=== PATIENT | male | born 1960 | race Caucasian/White ===

== ENCOUNTER → 2018-10-05 09:58 | Outpatient (CLI) | payer OTHER, SELFPAY ==
[2018-10-05 11:10] LABS: EXAGEN MAILED SPECIMEN
[2018-10-05 12:16] LABS: Color, Urine Yellow (Yellow); Glucose, Dipstick Normal (Normal); Ketone-Dipstick Negative (Negative); Leukocyte Esterase-Dipstick Negative /ul (Negative); Nitrite-Dipstick Negative (Negative); Occult Blood-Urine Negative /ul (Negative); Protein-Dipstick Negative (Negative); Urine Bilirubin Dipstick Negative (Negative); Urine Clarity Sl. Cloudy (Clear); Urine Urobilinogen Normal (Normal)
[2018-10-05 12:26] LABS: Erythrocyte Sedimentation Rate 70 mm/hr (0-20)
[2018-10-05 12:28] LABS: Absolute Lymphocyte Count 2.14 X10^3/ul (0.83-4.51); Absolute Neutrophil Count 5.4 X10^3/uL (2.0-7.7); Basophil# 0.03 X10^3/uL; Basophil% 0.3 % (0-1); Eosinophil# 0.26 X10^3/uL; Eosinophils% 2.9 % (0-5); Hematocrit 36.7 % (40-54); Hemoglobin 11.7 g/dl (13.0-16.5); Lymphocyte # 2.14 X10^3/ul (4.0); Lymphocyte % 23.8 % (19-41); Mean Corp Hgb Conc 31.9 g/gl (32-36); Mean Corpuscular Hgb 26.6 pg (27.0-32.0); Mean Corpuscular Volume 83.4 fL (80-94); Mean Platelet Vol. 10.7 fl (6.2-12.0); Monocyte% 13.3 % (0-10); Neutrophil # 5.35 X10^3/uL (2.7-7.7); Neutrophil % 59.5 % (47-70); Platelet Count 281 K/mm3 (150-450); RBC Distribution Width SD 46.1 fl (35.1-43.9)
[2018-10-05 12:29] LABS: POSITIVE COUNT NO; POSITIVE DIFFERENTIAL NO; POSITIVE MORPHOLOGY NO
[2018-10-05 12:35] LABS: Protein, Urine (Random) 19.7 mg/dL (<11.9); Protein:Creat Ratio 161 mg/g CRE (0-200)
[2018-10-05 12:36] LABS: ALB/GLOB Ratio 0.6 RATIO (0.9-2.4); AST(SGOT) 12 U/L (15-37); Alanine Aminotransfer ALT/SGPT 24 U/L (16-61); Albumin, Serum 2.9 g/dL (3.2-5.0); Alkaline Phosphatase 81 U/L (45-117); Anion Gap 9 (5-15); BUN 17 mg/dL (7-18); BUN/Creat Ratio 20.8 RATIO (10-20); Calcium,Total 9.1 mg/dL (8.5-10.1); Chloride 106 mmol/L (98-107); Creatinine, Serum 0.82 mg/dL (0.70-1.30); EST Glomerular Filtration Rate 104 mL/min (>60); Est Glom Filt Rate - Afr Amer 126 mL/min (>60); Globulin 4.9 g/dL (2.2-4.2); Glucose 74 mg/dL (74-106); Potassium 3.9 mmol/L (3.5-5.1); Protein, Total 7.8 g/dL (6.4-8.2); Sodium Level 143 mmol/L (136-145)
[2018-10-08 05:06] LABS: HEPATITIS B SURFACE AG Negative (Negative); QNTFERON TB Mitogen Value > 10.00 IU/mL (.); QNTFERON TB Nil Value 0.04 IU/mL (.); QNTFERON TB1+ Ag Value 0.04 IU/mL (.); QNTFERON TB2+ Ag Value 0.04 IU/mL (.)
[2018-10-08 09:54] LABS: Hep B Surface Antibodies Non Reactive (.); Hep C Antibodies <0.1 s/co ratio (0.0-0.9); Hepatitis B Core AB IgM Negative (Negative); QNTIFERON TB Positive Criteria Negative (Negative)
== END ==
PROVIDERS: Family Provider Family Medicine; PCP Family Medicine; Referring Provider Internal Medicine Rheumatology; Visit Provider Internal Medicine Rheumatology
DX: L40.59 Other psoriatic arthropathy (principal); E11.9 Type 2 diabetes mellitus without complications; M21.40 Flat foot [pes planus] (acquired), unspecified foot; E78.5 Hyperlipidemia, unspecified; H40.9 Unspecified glaucoma; R76.8 Other specified abnormal immunological findings in serum; Z79.899 Other long term (current) drug therapy
CPT/HCPCS: 36415; 80053; 81002; 82570; 84156; 85025; 85652; 86140; 86480; 86705; 86706; 86803; 87340

== ENCOUNTER → 2019-01-06 11:34 | Outpatient (CLI) | payer OTHER, SELFPAY ==
[2019-01-06 14:54] LABS: Absolute Lymphocyte Count 1.75 X10^3/uL (0.83-4.51); Absolute Neutrophil Count 4.4 X10^3/uL (2.0-7.7); Basophil# 0.06 X10^3/uL; Basophil% 0.8 % (0-1); Eosinophil# 0.19 X10^3/uL; Eosinophils% 2.7 % (0-5); Hematocrit 42.7 % (40-54); Hemoglobin 13.2 g/dL (13.0-16.5); Lymphocyte # 1.75 X10^3/ul (4.0); Lymphocyte % 24.5 % (19-41); Mean Corp Hgb Conc 30.9 g/dL (32-36); Mean Corpuscular Hgb 26.7 pg (27.0-32.0); Mean Corpuscular Volume 86.4 fL (80-94); Mean Platelet Vol. 11.7 fl (6.2-12.0); Monocyte# 0.73 X10^3/uL; Monocyte% 10.2 % (0-10); NRBC Flagged by Analyzer 0 % (0-5); Neutrophil # 4.39 X10^3/uL (2.7-7.7); Neutrophil % 61.4 % (47-70); Platelet Count 206 K/mm3 (150-450); RBC Distribution Width CV 17.7 % (11.6-14.6); RBC Distribution Width SD 54.5 fl (35.1-43.9); Red Blood Count 4.94 M/mm3 (4.6-6.2); White Blood Count 7.2 K/mm3 (4.4-11.0)
[2019-01-06 15:17] LABS: ALB/GLOB Ratio 0.8 RATIO (0.9-2.4); AST(SGOT) 12 U/L (15-37); Alanine Aminotransfer ALT/SGPT 20 U/L (16-61); Albumin, Serum 3.2 g/dL (3.2-5.0); Alkaline Phosphatase 90 U/L (45-117); Anion Gap 4 (5-15); BUN 15 mg/dL (7-18); BUN/Creat Ratio 16.4 RATIO (10-20); Calcium,Total 9.1 mg/dL (8.5-10.1); Chloride 107 mmol/L (98-107); Creatinine, Serum 0.91 mg/dL (0.70-1.30); EST Glomerular Filtration Rate 91 mL/min (>60); Est Glom Filt Rate - Afr Amer 111 mL/min (>60); Globulin 4.1 g/dL (2.2-4.2); Glucose 114 mg/dL (74-106); Potassium 4.1 mmol/L (3.5-5.1); Protein, Total 7.3 g/dL (6.4-8.2); Sodium Level 140 mmol/L (136-145)
== END ==
PROVIDERS: Family Provider Family Medicine; PCP Family Medicine; Referring Provider Internal Medicine Rheumatology; Visit Provider Internal Medicine Rheumatology
DX: L40.59 Other psoriatic arthropathy (principal); E11.9 Type 2 diabetes mellitus without complications; M21.40 Flat foot [pes planus] (acquired), unspecified foot; E78.5 Hyperlipidemia, unspecified; H40.9 Unspecified glaucoma; Z79.899 Other long term (current) drug therapy
CPT/HCPCS: 36415; 80053; 85025

== ENCOUNTER → 2019-03-08 11:10 | Outpatient (CLI) | payer OTHER, SELFPAY ==
[2019-03-08 12:33] LABS: Absolute Lymphocyte Count 1.43 X10^3/uL (0.83-4.51); Absolute Neutrophil Count 2.9 X10^3/uL (2.0-7.7); Basophil# 0.04 X10^3/uL; Basophil% 0.8 % (0-1); Eosinophil# 0.21 X10^3/uL; Hematocrit 45.7 % (40-54); Hemoglobin 14.3 g/dL (13.0-16.5); Lymphocyte # 1.43 X10^3/ul (4.0); Lymphocyte % 27.4 % (19-41); Mean Corp Hgb Conc 31.3 g/dL (32-36); Mean Corpuscular Hgb 29.3 pg (27.0-32.0); Mean Corpuscular Volume 93.6 fL (80-94); Mean Platelet Vol. 11.1 fl (6.2-12.0); Monocyte# 0.66 X10^3/uL; Monocyte% 12.6 % (0-10); NRBC Flagged by Analyzer 0 % (0-5); Neutrophil # 2.87 X10^3/uL (2.7-7.7); Platelet Count 165 K/mm3 (150-450); RBC Distribution Width CV 16.9 % (11.6-14.6); RBC Distribution Width SD 57.5 fl (35.1-43.9); Red Blood Count 4.88 M/mm3 (4.6-6.2); White Blood Count 5.2 K/mm3 (4.4-11.0)
[2019-03-08 13:05] LABS: AST(SGOT) 13 U/L (15-37); Alanine Aminotransfer ALT/SGPT 24 U/L (16-61); Albumin, Serum 3.5 g/dL (3.2-5.0); Alkaline Phosphatase 79 U/L (45-117); Anion Gap 5 (5-15); BUN 16 mg/dL (7-18); BUN/Creat Ratio 17.4 RATIO (10-20); Calcium,Total 8.6 mg/dL (8.5-10.1); Chloride 109 mmol/L (98-107); Creatinine, Serum 0.92 mg/dL (0.70-1.30); EST Glomerular Filtration Rate 90 mL/min (>60); Est Glom Filt Rate - Afr Amer 109 mL/min (>60); Globulin 3.5 g/dL (2.2-4.2); Glucose 98 mg/dL (74-106); Potassium 4.3 mmol/L (3.5-5.1); Sodium Level 141 mmol/L (136-145)
== END ==
PROVIDERS: Family Provider Family Medicine; PCP Family Medicine; Referring Provider Internal Medicine Rheumatology; Visit Provider Internal Medicine Rheumatology
DX: L40.59 Other psoriatic arthropathy (principal); E11.9 Type 2 diabetes mellitus without complications; M21.40 Flat foot [pes planus] (acquired), unspecified foot; E78.5 Hyperlipidemia, unspecified; H40.9 Unspecified glaucoma; Z79.899 Other long term (current) drug therapy
CPT/HCPCS: 36415; 80053; 85025

== ENCOUNTER → 2019-06-14 10:02 | Outpatient (CLI) | payer OTHER, SELFPAY ==
[2019-06-14 12:28] LABS: Absolute Lymphocyte Count 1.97 X10^3/uL (0.83-4.51); Basophil# 0.03 X10^3/uL; Basophil% 0.5 % (0-1); Eosinophil# 0.18 X10^3/uL; Eosinophils% 3.1 % (0-5); Hematocrit 45.2 % (40-54); Hemoglobin 14.4 g/dL (13.0-16.5); Lymphocyte # 1.97 X10^3/ul (4.0); Lymphocyte % 33.4 % (19-41); Mean Corp Hgb Conc 31.9 g/dL (32-36); Mean Corpuscular Hgb 30.1 pg (27.0-32.0); Mean Corpuscular Volume 94.6 fL (80-94); Mean Platelet Vol. 11.4 fl (6.2-12.0); Monocyte# 0.65 X10^3/uL; NRBC Flagged by Analyzer 0 % (0-5); Neutrophil # 3.03 X10^3/uL (2.7-7.7); Neutrophil % 51.5 % (47-70); Platelet Count 205 K/mm3 (150-450); RBC Distribution Width CV 13.2 % (11.6-14.6); RBC Distribution Width SD 45.8 fl (35.1-43.9); Red Blood Count 4.78 M/mm3 (4.6-6.2); White Blood Count 5.9 K/mm3 (4.4-11.0)
[2019-06-14 13:23] LABS: ALB/GLOB Ratio 1.1 RATIO (0.9-2.4); AST(SGOT) 23 U/L (15-37); Alanine Aminotransfer ALT/SGPT 41 U/L (16-61); Albumin, Serum 3.8 g/dL (3.2-5.0); Alkaline Phosphatase 82 U/L (45-117); Anion Gap 5 (5-15); BUN 18 mg/dL (7-18); BUN/Creat Ratio 17.1 RATIO (10-20); Calcium,Total 9.1 mg/dL (8.5-10.1); Chloride 110 mmol/L (98-107); Creatinine, Serum 1.05 mg/dL (0.70-1.30); EST Glomerular Filtration Rate 78 mL/min (>60); Est Glom Filt Rate - Afr Amer 94 mL/min (>60); Globulin 3.6 g/dL (2.2-4.2); Glucose 102 mg/dL (74-106); Potassium 4.2 mmol/L (3.5-5.1); Protein, Total 7.4 g/dL (6.4-8.2); Sodium Level 141 mmol/L (136-145)
== END ==
PROVIDERS: PCP Family Medicine; Referring Provider Internal Medicine Rheumatology; Visit Provider Internal Medicine Rheumatology
DX: L40.59 Other psoriatic arthropathy (principal); E11.9 Type 2 diabetes mellitus without complications; M21.40 Flat foot [pes planus] (acquired), unspecified foot; E78.5 Hyperlipidemia, unspecified; H40.9 Unspecified glaucoma; Z79.899 Other long term (current) drug therapy
CPT/HCPCS: 36415; 80053; 85025

== ENCOUNTER → 2019-09-06 11:00 | Outpatient (CLI) | payer OTHER, SELFPAY ==
[2019-09-06 11:22] LABS: Absolute Neutrophil Count 3.5 X10^3/uL (2.0-7.7); Basophil# 0.04 X10^3/uL; Basophil% 0.6 % (0-1); Eosinophil# 0.19 X10^3/uL; Eosinophils% 3.1 % (0-5); Hematocrit 46.5 % (40-54); Hemoglobin 15.1 g/dL (13.0-16.5); Mean Corp Hgb Conc 32.5 g/dL (32-36); Mean Corpuscular Hgb 31.3 pg (27.0-32.0); Mean Corpuscular Volume 96.3 fL (80-94); Mean Platelet Vol. 10.7 fl (6.2-12.0); Monocyte% 9.7 % (0-10); NRBC Flagged by Analyzer 0 % (0-5); Neutrophil # 3.52 X10^3/uL (2.7-7.7); Neutrophil % 56.8 % (47-70); Platelet Count 161 K/mm3 (150-450); RBC Distribution Width CV 13.4 % (11.6-14.6); RBC Distribution Width SD 47.7 fl (35.1-43.9); Red Blood Count 4.83 M/mm3 (4.6-6.2); White Blood Count 6.2 K/mm3 (4.4-11.0)
[2019-09-06 11:49] LABS: AST(SGOT) 28 U/L (15-37); Alanine Aminotransfer ALT/SGPT 56 U/L (16-61); Albumin, Serum 3.6 g/dL (3.2-5.0); Alkaline Phosphatase 87 U/L (45-117); Anion Gap 4 (5-15); BUN 19 mg/dL (7-18); BUN/Creat Ratio 19.7 RATIO (10-20); Calcium,Total 9.1 mg/dL (8.5-10.1); Chloride 110 mmol/L (98-107); Creatinine, Serum 0.96 mg/dL (0.70-1.30); EST Glomerular Filtration Rate 86 mL/min (>60); Est Glom Filt Rate - Afr Amer 104 mL/min (>60); Globulin 3.5 g/dL (2.2-4.2); Glucose 125 mg/dL (74-106); Potassium 4.3 mmol/L (3.5-5.1); Protein, Total 7.1 g/dL (6.4-8.2); Sodium Level 143 mmol/L (136-145)
== END ==
PROVIDERS: PCP Family Medicine; Referring Provider Internal Medicine Rheumatology; Visit Provider Internal Medicine Rheumatology
DX: L40.59 Other psoriatic arthropathy (principal); E11.9 Type 2 diabetes mellitus without complications; M21.40 Flat foot [pes planus] (acquired), unspecified foot; E78.5 Hyperlipidemia, unspecified; H40.9 Unspecified glaucoma; Z79.899 Other long term (current) drug therapy
CPT/HCPCS: 36415; 80053; 85025

== ENCOUNTER → 2019-12-08 10:31 | Outpatient (CLI) | payer OTHER, SELFPAY ==
[2019-12-08 10:45] LABS: Absolute Lymphocyte Count 1.68 X10^3/uL (0.83-4.51); Absolute Neutrophil Count 2.7 X10^3/uL (2.0-7.7); Basophil# 0.03 X10^3/uL; Basophil% 0.6 % (0-1); Eosinophil# 0.15 X10^3/uL; Eosinophils% 2.9 % (0-5); Hematocrit 43.3 % (40-54); Hemoglobin 14.1 g/dL (13.0-16.5); Lymphocyte # 1.68 X10^3/ul (4.0); Lymphocyte % 32.6 % (19-41); Mean Corp Hgb Conc 32.6 g/dL (32-36); Mean Corpuscular Hgb 31.3 pg (27.0-32.0); Monocyte# 0.63 X10^3/uL; Monocyte% 12.2 % (0-10); NRBC Flagged by Analyzer 0 % (0-5); Neutrophil # 2.65 X10^3/uL (2.7-7.7); Neutrophil % 51.5 % (47-70); Platelet Count 169 K/mm3 (150-450); RBC Distribution Width CV 13.3 % (11.6-14.6); RBC Distribution Width SD 47.3 fl (35.1-43.9); Red Blood Count 4.51 M/mm3 (4.6-6.2); White Blood Count 5.2 K/mm3 (4.4-11.0)
[2019-12-08 11:29] LABS: ALB/GLOB Ratio 1.1 RATIO (0.9-2.4); AST(SGOT) 12 U/L (15-37); Alanine Aminotransfer ALT/SGPT 30 U/L (16-61); Albumin, Serum 3.6 g/dL (3.2-5.0); Alkaline Phosphatase 89 U/L (45-117); Anion Gap 3 (5-15); BUN 15 mg/dL (7-18); BUN/Creat Ratio 15.7 RATIO (10-20); Calcium,Total 8.9 mg/dL (8.5-10.1); Chloride 108 mmol/L (98-107); Creatinine, Serum 0.96 mg/dL (0.70-1.30); EST Glomerular Filtration Rate 86 mL/min (>60); Est Glom Filt Rate - Afr Amer 105 mL/min (>60); Globulin 3.3 g/dL (2.2-4.2); Glucose 79 mg/dL (74-106); Potassium 3.9 mmol/L (3.5-5.1); Protein, Total 6.9 g/dL (6.4-8.2); Sodium Level 142 mmol/L (136-145)
== END ==
PROVIDERS: PCP Family Medicine; Referring Provider Internal Medicine Rheumatology; Visit Provider Internal Medicine Rheumatology
DX: L40.59 Other psoriatic arthropathy (principal); E11.9 Type 2 diabetes mellitus without complications; M21.40 Flat foot [pes planus] (acquired), unspecified foot; E78.5 Hyperlipidemia, unspecified; H40.9 Unspecified glaucoma; Z79.899 Other long term (current) drug therapy
CPT/HCPCS: 36415; 80053; 85025

== ENCOUNTER → 2020-02-25 09:50 | Outpatient (CLI) | payer OTHER, SELFPAY ==
[2020-02-25 10:30] LABS: Absolute Lymphocyte Count 1.75 X10^3/uL (0.83-4.51); Absolute Neutrophil Count 2.3 X10^3/uL (2.0-7.7); Basophil# 0.03 X10^3/uL; Basophil% 0.6 % (0-1); Eosinophil# 0.11 X10^3/uL; Eosinophils% 2.3 % (0-5); Hemoglobin 13.8 g/dL (13.0-16.5); Lymphocyte # 1.75 X10^3/ul (4.0); Lymphocyte % 36.2 % (19-41); Mean Corp Hgb Conc 31.4 g/dL (32-36); Mean Corpuscular Hgb 30.6 pg (27.0-32.0); Mean Corpuscular Volume 97.6 fL (80-94); Mean Platelet Vol. 10.8 fl (6.2-12.0); Monocyte% 12.4 % (0-10); NRBC Flagged by Analyzer 0 % (0-5); Neutrophil # 2.33 X10^3/uL (2.7-7.7); Neutrophil % 48.3 % (47-70); Platelet Count 163 K/mm3 (150-450); RBC Distribution Width CV 13.2 % (11.6-14.6); RBC Distribution Width SD 47.3 fl (35.1-43.9); Red Blood Count 4.51 M/mm3 (4.6-6.2); White Blood Count 4.8 K/mm3 (4.4-11.0)
[2020-02-25 10:53] LABS: ALB/GLOB Ratio 1.1 RATIO (0.9-2.4); AST(SGOT) 21 U/L (15-37); Alanine Aminotransfer ALT/SGPT 34 U/L (16-61); Albumin, Serum 3.7 g/dL (3.2-5.0); Alkaline Phosphatase 86 U/L (45-117); Anion Gap 4 (5-15); BUN 19 mg/dL (7-18); BUN/Creat Ratio 20.9 RATIO (10-20); Calcium,Total 8.8 mg/dL (8.5-10.1); Chloride 107 mmol/L (98-107); Creatinine, Serum 0.91 mg/dL (0.70-1.30); EST Glomerular Filtration Rate 91 mL/min (>60); Est Glom Filt Rate - Afr Amer 111 mL/min (>60); Globulin 3.5 g/dL (2.2-4.2); Glucose 83 mg/dL (74-106); Protein, Total 7.2 g/dL (6.4-8.2); Sodium Level 140 mmol/L (136-145)
== END ==
PROVIDERS: PCP Family Medicine; Referring Provider Internal Medicine Rheumatology; Visit Provider Internal Medicine Rheumatology
DX: L40.59 Other psoriatic arthropathy (principal); E11.9 Type 2 diabetes mellitus without complications; M21.40 Flat foot [pes planus] (acquired), unspecified foot; E78.5 Hyperlipidemia, unspecified; H40.9 Unspecified glaucoma; Z79.899 Other long term (current) drug therapy
CPT/HCPCS: 36415; 80053; 85025

== ENCOUNTER → 2020-05-23 10:06 | Outpatient (CLI) | payer OTHER, SELFPAY ==
[2020-05-23 12:11] LABS: Absolute Lymphocyte Count 1.67 X10^3/uL (0.83-4.51); Absolute Neutrophil Count 2.1 X10^3/uL (2.0-7.7); Basophil# 0.02 X10^3/uL; Basophil% 0.5 % (0-1); Eosinophils% 2.3 % (0-5); Hemoglobin 14.3 g/dL (13.0-16.5); Lymphocyte # 1.67 X10^3/ul (4.0); Mean Corp Hgb Conc 32.5 g/dL (32-36); Mean Corpuscular Hgb 30.9 pg (27.0-32.0); Mean Platelet Vol. 11.4 fl (6.2-12.0); Monocyte# 0.47 X10^3/uL; Monocyte% 10.7 % (0-10); NRBC Flagged by Analyzer 0 % (0-5); Neutrophil # 2.12 X10^3/uL (2.7-7.7); Neutrophil % 48.3 % (47-70); Platelet Count 185 K/mm3 (150-450); RBC Distribution Width CV 13.4 % (11.6-14.6); RBC Distribution Width SD 46.6 fl (35.1-43.9); Red Blood Count 4.63 M/mm3 (4.6-6.2); White Blood Count 4.4 K/mm3 (4.4-11.0)
[2020-05-23 12:33] LABS: ALB/GLOB Ratio 1.1 RATIO (0.9-2.4); AST(SGOT) 12 U/L (15-37); Alanine Aminotransfer ALT/SGPT 24 U/L (16-61); Albumin, Serum 3.8 g/dL (3.2-5.0); Alkaline Phosphatase 86 U/L (45-117); Anion Gap 4 (5-15); BUN 17 mg/dL (7-18); BUN/Creat Ratio 19.7 RATIO (10-20); Calcium,Total 8.7 mg/dL (8.5-10.1); Chloride 108 mmol/L (98-107); Creatinine, Serum 0.86 mg/dL (0.70-1.30); EST Glomerular Filtration Rate 97 mL/min (>60); Est Glom Filt Rate - Afr Amer 117 mL/min (>60); Globulin 3.5 g/dL (2.2-4.2); Glucose 86 mg/dL (74-106); Potassium 3.9 mmol/L (3.5-5.1); Protein, Total 7.3 g/dL (6.4-8.2); Sodium Level 139 mmol/L (136-145)
== END ==
PROVIDERS: PCP Family Medicine; Referring Provider Internal Medicine Rheumatology; Visit Provider Internal Medicine Rheumatology
DX: L40.59 Other psoriatic arthropathy (principal); E11.9 Type 2 diabetes mellitus without complications; M21.40 Flat foot [pes planus] (acquired), unspecified foot; E78.5 Hyperlipidemia, unspecified; H40.9 Unspecified glaucoma; Z79.899 Other long term (current) drug therapy
CPT/HCPCS: 36415; 80053; 85025

== ENCOUNTER → 2020-08-04 11:50 | Outpatient (CLI) | payer OTHER, SELFPAY ==
[2020-08-04 12:04] LABS: Absolute Lymphocyte Count 1.42 X10^3/uL (0.83-4.51); Absolute Neutrophil Count 2.6 X10^3/uL (2.0-7.7); Basophil# 0.04 X10^3/uL; Basophil% 0.8 % (0-1); Eosinophil# 0.16 X10^3/uL; Eosinophils% 3.3 % (0-5); Hematocrit 44.5 % (40-54); Hemoglobin 14.8 g/dL (13.0-16.5); Lymphocyte # 1.42 X10^3/ul (4.0); Mean Corp Hgb Conc 33.3 g/dL (32-36); Mean Corpuscular Volume 96.1 fL (80-94); Mean Platelet Vol. 10.9 fl (6.2-12.0); Monocyte# 0.61 X10^3/uL; Monocyte% 12.5 % (0-10); NRBC Flagged by Analyzer 0 % (0-5); Neutrophil # 2.64 X10^3/uL (2.7-7.7); Platelet Count 160 K/mm3 (150-450); RBC Distribution Width CV 14.4 % (11.6-14.6); RBC Distribution Width SD 49.3 fl (35.1-43.9); Red Blood Count 4.63 M/mm3 (4.6-6.2); White Blood Count 4.9 K/mm3 (4.4-11.0)
[2020-08-04 13:00] LABS: ALB/GLOB Ratio 1.1 RATIO (0.9-2.4); AST(SGOT) 18 U/L (15-37); Alanine Aminotransfer ALT/SGPT 38 U/L (16-61); Albumin, Serum 3.8 g/dL (3.2-5.0); Alkaline Phosphatase 91 U/L (45-117); Anion Gap 3 (5-15); BUN 18 mg/dL (7-18); BUN/Creat Ratio 19.1 RATIO (10-20); Calcium,Total 9.2 mg/dL (8.5-10.1); Chloride 109 mmol/L (98-107); Creatinine, Serum 0.94 mg/dL (0.70-1.30); EST Glomerular Filtration Rate 88 mL/min (>60); Est Glom Filt Rate - Afr Amer 106 mL/min (>60); Globulin 3.6 g/dL (2.2-4.2); Glucose 100 mg/dL (74-106); Potassium 4.2 mmol/L (3.5-5.1); Protein, Total 7.4 g/dL (6.4-8.2); Sodium Level 140 mmol/L (136-145)
== END ==
PROVIDERS: PCP Family Medicine; Referring Provider Internal Medicine Rheumatology; Visit Provider Internal Medicine Rheumatology
DX: L40.59 Other psoriatic arthropathy (principal); E11.9 Type 2 diabetes mellitus without complications; M21.40 Flat foot [pes planus] (acquired), unspecified foot; E78.5 Hyperlipidemia, unspecified; H40.9 Unspecified glaucoma; Z79.899 Other long term (current) drug therapy
CPT/HCPCS: 36415; 80053; 85025

== ENCOUNTER → 2020-11-07 09:47 | Outpatient (CLI) | payer OTHER, SELFPAY ==
[2020-11-07 10:06] LABS: Absolute Lymphocyte Count 1.55 X10^3/uL (0.83-4.51); Absolute Neutrophil Count 2.3 X10^3/uL (2.0-7.7); Basophil# 0.03 X10^3/uL; Basophil% 0.7 % (0-1); Eosinophil# 0.13 X10^3/uL; Eosinophils% 2.9 % (0-5); Hematocrit 43.9 % (40-54); Hemoglobin 14.1 g/dL (13.0-16.5); Lymphocyte # 1.55 X10^3/ul (0.83-4.51); Lymphocyte % 34.8 % (19-41); Mean Corp Hgb Conc 32.1 g/dL (32-36); Mean Corpuscular Hgb 30.7 pg (27.0-32.0); Mean Corpuscular Volume 95.4 fL (80-94); Monocyte# 0.43 X10^3/uL; Monocyte% 9.6 % (0-10); NRBC Flagged by Analyzer 0 % (0-5); Neutrophil % 51.6 % (47-70); Platelet Count 173 K/mm3 (150-450); RBC Distribution Width CV 13.6 % (11.6-14.6); RBC Distribution Width SD 47.3 fl (35.1-43.9); White Blood Count 4.5 K/mm3 (4.4-11.0)
[2020-11-07 10:33] LABS: ALB/GLOB Ratio 1.2 RATIO (0.9-2.4); AST(SGOT) 15 U/L (15-37); Alanine Aminotransfer ALT/SGPT 24 U/L (16-61); Albumin, Serum 3.8 g/dL (3.2-5.0); Alkaline Phosphatase 84 U/L (45-117); Anion Gap 4 (5-15); BUN 15 mg/dL (7-18); BUN/Creat Ratio 15.3 RATIO (10-20); Calcium,Total 8.8 mg/dL (8.5-10.1); Chloride 108 mmol/L (98-107); Creatinine, Serum 0.98 mg/dL (0.70-1.30); EST Glomerular Filtration Rate 83 mL/min (>60); Est Glom Filt Rate - Afr Amer 101 mL/min (>60); Globulin 3.3 g/dL (2.2-4.2); Glucose 91 mg/dL (74-106); Protein, Total 7.1 g/dL (6.4-8.2); Sodium Level 140 mmol/L (136-145)
== END ==
PROVIDERS: PCP Family Medicine; Referring Provider Internal Medicine Rheumatology; Visit Provider Internal Medicine Rheumatology
DX: L40.59 Other psoriatic arthropathy (principal); E11.9 Type 2 diabetes mellitus without complications; M21.40 Flat foot [pes planus] (acquired), unspecified foot; E78.5 Hyperlipidemia, unspecified; H40.9 Unspecified glaucoma; Z79.899 Other long term (current) drug therapy
CPT/HCPCS: 36415; 80053; 85025

== ENCOUNTER → 2021-02-06 09:20 | Outpatient (CLI) | payer OTHER, SELFPAY ==
[2021-02-06 10:40] LABS: Absolute Lymphocyte Count 1.58 X10^3/uL (0.83-4.51); Absolute Neutrophil Count 2.3 X10^3/uL (2.0-7.7); Basophil# 0.03 X10^3/uL; Basophil% 0.7 % (0-1); Eosinophil# 0.12 X10^3/uL; Eosinophils% 2.7 % (0-5); Hematocrit 41.4 % (40-54); Hemoglobin 13.5 g/dL (13.0-16.5); Lymphocyte # 1.58 X10^3/ul (0.83-4.51); Mean Corp Hgb Conc 32.6 g/dL (32-36); Mean Corpuscular Hgb 30.7 pg (27.0-32.0); Mean Corpuscular Volume 94.1 fL (80-94); Mean Platelet Vol. 11.6 fl (6.2-12.0); Monocyte# 0.45 X10^3/uL; NRBC Flagged by Analyzer 0 % (0-5); Neutrophil # 2.32 X10^3/uL (2.7-7.7); Neutrophil % 51.2 % (47-70); Platelet Count 168 K/mm3 (150-450); RBC Distribution Width CV 13.3 % (11.6-14.6); RBC Distribution Width SD 45.3 fl (35.1-43.9); White Blood Count 4.5 K/mm3 (4.4-11.0)
[2021-02-06 11:17] LABS: AST(SGOT) 14 U/L (15-37); Alanine Aminotransfer ALT/SGPT 26 U/L (16-61); Albumin, Serum 3.4 g/dL (3.2-5.0); Alkaline Phosphatase 76 U/L (45-117); Anion Gap 5 (5-15); BUN 17 mg/dL (7-18); BUN/Creat Ratio 18.3 RATIO (10-20); Calcium,Total 8.8 mg/dL (8.5-10.1); Chloride 108 mmol/L (98-107); Creatinine, Serum 0.93 mg/dL (0.70-1.30); EST Glomerular Filtration Rate 89 mL/min (>60); Est Glom Filt Rate - Afr Amer 108 mL/min (>60); Globulin 3.4 g/dL (2.2-4.2); Glucose 91 mg/dL (74-106); Potassium 3.9 mmol/L (3.5-5.1); Protein, Total 6.8 g/dL (6.4-8.2); Sodium Level 141 mmol/L (136-145)
== END ==
PROVIDERS: PCP Family Medicine; Referring Provider Internal Medicine Rheumatology; Visit Provider Internal Medicine Rheumatology
DX: L40.59 Other psoriatic arthropathy (principal); E11.9 Type 2 diabetes mellitus without complications; M21.40 Flat foot [pes planus] (acquired), unspecified foot; E78.5 Hyperlipidemia, unspecified; H40.9 Unspecified glaucoma; Z79.899 Other long term (current) drug therapy
CPT/HCPCS: 36415; 80053; 85025

== ENCOUNTER 2021-08-08 09:51 | Outpatient (CLI) | payer OTHER, SELFPAY ==
[2021-08-08 10:50] LABS: Absolute Neutrophil Count 2.8 X10^3/uL (2.0-7.7); Basophil# 0.03 X10^3/uL; Basophil% 0.6 % (0-1); Eosinophil# 0.17 X10^3/uL; Eosinophils% 3.2 % (0-5); Hematocrit 42.2 % (40-54); Lymphocyte % 30.1 % (19-41); Mean Corp Hgb Conc 33.2 g/dL (32-36); Mean Corpuscular Volume 93.4 fL (80-94); Mean Platelet Vol. 10.6 fl (6.2-12.0); Monocyte# 0.67 X10^3/uL; Monocyte% 12.6 % (0-10); NRBC Flagged by Analyzer 0.4 % (0-5); Neutrophil # 2.84 X10^3/uL (2.7-7.7); Neutrophil % 53.3 % (47-70); Platelet Count 172 K/mm3 (150-450); RBC Distribution Width CV 13.2 % (11.6-14.6); Red Blood Count 4.52 M/mm3 (4.6-6.2); White Blood Count 5.3 K/mm3 (4.4-11.0)
[2021-08-08 11:19] LABS: ALB/GLOB Ratio 1.2 RATIO (0.9-2.4); AST(SGOT) 17 U/L (15-37); Alanine Aminotransfer ALT/SGPT 32 U/L (16-61); Albumin, Serum 3.7 g/dL (3.2-5.0); Alkaline Phosphatase 78 U/L (45-117); Anion Gap 3 (5-15); BUN 18 mg/dL (7-18); BUN/Creat Ratio 18.5 RATIO (10-20); Calcium,Total 8.4 mg/dL (8.5-10.1); Chloride 110 mmol/L (98-107); Creatinine, Serum 0.97 mg/dL (0.70-1.30); EST Glomerular Filtration Rate 84 mL/min (>60); Est Glom Filt Rate - Afr Amer 102 mL/min (>60); Globulin 3.2 g/dL (2.2-4.2); Glucose 94 mg/dL (74-106); Potassium 3.9 mmol/L (3.5-5.1); Protein, Total 6.9 g/dL (6.4-8.2); Sodium Level 140 mmol/L (136-145)
== END 2021-08-08 23:59 | disposition home or self-care (01) ==
LOC: LAB 10:18
PROVIDERS: PCP Family Medicine; Visit Provider Internal Medicine Rheumatology
DX: L40.59 Other psoriatic arthropathy (principal); E11.9 Type 2 diabetes mellitus without complications; L40.8 Other psoriasis; M21.40 Flat foot [pes planus] (acquired), unspecified foot; E78.5 Hyperlipidemia, unspecified; H40.9 Unspecified glaucoma; Z79.899 Other long term (current) drug therapy
CPT/HCPCS: 36415; 80053; 85025

== ENCOUNTER → 2021-11-10 | Outpatient (CLI) | payer OTHER, SELFPAY ==
[2021-11-10 11:02] LABS: Absolute Lymphocyte Count 1.47 X10^3/uL (0.83-4.51); Absolute Neutrophil Count 2.8 X10^3/uL (2.0-7.7); Basophil# 0.03 X10^3/uL; Basophil% 0.6 % (0-1); Eosinophil# 0.19 X10^3/uL; Eosinophils% 3.7 % (0-5); Hematocrit 42.2 % (40-54); Hemoglobin 13.9 g/dL (13.0-16.5); Lymphocyte # 1.47 X10^3/ul (0.83-4.51); Lymphocyte % 28.8 % (19-41); Mean Corp Hgb Conc 32.9 g/dL (32-36); Mean Corpuscular Hgb 31.3 pg (27.0-32.0); Mean Platelet Vol. 10.7 fl (6.2-12.0); Monocyte# 0.65 X10^3/uL; Monocyte% 12.7 % (0-10); NRBC Flagged by Analyzer 0 % (0-5); Neutrophil # 2.75 X10^3/uL (2.7-7.7); Neutrophil % 53.8 % (47-70); Platelet Count 157 K/mm3 (150-450); RBC Distribution Width CV 13.4 % (11.6-14.6); RBC Distribution Width SD 46.7 fl (35.1-43.9); Red Blood Count 4.44 M/mm3 (4.6-6.2); White Blood Count 5.1 K/mm3 (4.4-11.0)
[2021-11-10 11:29] LABS: ALB/GLOB Ratio 1.1 RATIO (0.9-2.4); AST(SGOT) 13 U/L (15-37); Alanine Aminotransfer ALT/SGPT 21 U/L (16-61); Albumin, Serum 3.5 g/dL (3.2-5.0); Alkaline Phosphatase 84 U/L (45-117); Anion Gap 5 (5-15); BUN 20 mg/dL (7-18); BUN/Creat Ratio 19.8 RATIO (10-20); Calcium,Total 8.7 mg/dL (8.5-10.1); Chloride 110 mmol/L (98-107); Creatinine, Serum 1.01 mg/dL (0.70-1.30); EST Glomerular Filtration Rate 80 mL/min (>60); Est Glom Filt Rate - Afr Amer 97 mL/min (>60); Globulin 3.2 g/dL (2.2-4.2); Glucose 107 mg/dL (74-106); Potassium 3.8 mmol/L (3.5-5.1); Protein, Total 6.7 g/dL (6.4-8.2); Sodium Level 141 mmol/L (136-145)
== END | disposition home or self-care (01) ==
LOC: LAB 10:29
PROVIDERS: PCP Family Medicine; Referring Provider Internal Medicine Rheumatology; Visit Provider Internal Medicine Rheumatology
DX: L40.59 Other psoriatic arthropathy (principal); E11.9 Type 2 diabetes mellitus without complications; L40.8 Other psoriasis; M21.40 Flat foot [pes planus] (acquired), unspecified foot; E78.5 Hyperlipidemia, unspecified; H40.9 Unspecified glaucoma; Z79.899 Other long term (current) drug therapy
CPT/HCPCS: 36415; 80053; 85025

== ENCOUNTER → 2022-02-01 | Outpatient (CLI) | payer OTHER, SELFPAY ==
[2022-02-01 11:38] LABS: Absolute Lymphocyte Count 1.29 X10^3/uL (0.83-4.51); Absolute Neutrophil Count 2.8 X10^3/uL (2.0-7.7); Basophil# 0.02 X10^3/uL; Basophil% 0.4 % (0-1); Eosinophil# 0.15 X10^3/uL; Eosinophils% 3.1 % (0-5); Hemoglobin 14.6 g/dL (13.0-16.5); Lymphocyte # 1.29 X10^3/ul (0.83-4.51); Lymphocyte % 26.3 % (19-41); Mean Corp Hgb Conc 32.4 g/dL (32-36); Mean Corpuscular Hgb 30.9 pg (27.0-32.0); Mean Corpuscular Volume 95.3 fL (80-94); Mean Platelet Vol. 10.9 fl (6.2-12.0); Monocyte# 0.66 X10^3/uL; Monocyte% 13.4 % (0-10); NRBC Flagged by Analyzer 0 % (0-5); Neutrophil # 2.76 X10^3/uL (2.7-7.7); Neutrophil % 56.2 % (47-70); Platelet Count 168 K/mm3 (150-450); RBC Distribution Width CV 13.3 % (11.6-14.6); RBC Distribution Width SD 46.6 fl (35.1-43.9); Red Blood Count 4.72 M/mm3 (4.6-6.2); White Blood Count 4.9 K/mm3 (4.4-11.0)
[2022-02-01 12:00] LABS: AST(SGOT) 14 U/L (15-37); Alanine Aminotransfer ALT/SGPT 22 U/L (16-61); Albumin, Serum 3.7 g/dL (3.2-5.0); Alkaline Phosphatase 83 U/L (45-117); Anion Gap 3 (5-15); BUN 22 mg/dL (7-18); BUN/Creat Ratio 21.2 RATIO (10-20); Calcium,Total 9.3 mg/dL (8.5-10.1); Chloride 110 mmol/L (98-107); Creatinine, Serum 1.04 mg/dL (0.70-1.30); EST Glomerular Filtration Rate 78 mL/min (>60); Est Glom Filt Rate - Afr Amer 94 mL/min (>60); Globulin 3.6 g/dL (2.2-4.2); Glucose 98 mg/dL (74-106); Potassium 4.4 mmol/L (3.5-5.1); Protein, Total 7.3 g/dL (6.4-8.2); Sodium Level 141 mmol/L (136-145)
== END | disposition home or self-care (01) ==
LOC: LAB 11:23
PROVIDERS: PCP Family Medicine; Visit Provider Internal Medicine Rheumatology
DX: L40.59 Other psoriatic arthropathy (principal); E11.9 Type 2 diabetes mellitus without complications; L40.8 Other psoriasis; M21.40 Flat foot [pes planus] (acquired), unspecified foot; E78.5 Hyperlipidemia, unspecified; H40.9 Unspecified glaucoma; Z79.899 Other long term (current) drug therapy
CPT/HCPCS: 36415; 80053; 85025

== ENCOUNTER → 2022-05-06 | Outpatient (CLI) | payer OTHER, SELFPAY ==
[2022-05-06 10:19] LABS: Absolute Lymphocyte Count 1.96 X10^3/uL (0.83-4.51); Absolute Neutrophil Count 3.4 X10^3/uL (2.0-7.7); Basophil# 0.04 X10^3/uL; Basophil% 0.6 % (0-1); Eosinophil# 0.21 X10^3/uL; Eosinophils% 3.2 % (0-5); Hematocrit 45.5 % (40-54); Hemoglobin 15.1 g/dL (13.0-16.5); Lymphocyte # 1.96 X10^3/ul (0.83-4.51); Lymphocyte % 30.1 % (19-41); Mean Corp Hgb Conc 33.2 g/dL (32-36); Mean Corpuscular Hgb 31.6 pg (27.0-32.0); Mean Corpuscular Volume 95.2 fL (80-94); Mean Platelet Vol. 11.2 fl (6.2-12.0); Monocyte# 0.86 X10^3/uL; Monocyte% 13.2 % (0-10); NRBC Flagged by Analyzer 0 % (0-5); Neutrophil # 3.41 X10^3/uL (2.7-7.7); Neutrophil % 52.4 % (47-70); Platelet Count 149 K/mm3 (150-450); RBC Distribution Width SD 48.3 fl (35.1-43.9); Red Blood Count 4.78 M/mm3 (4.6-6.2); White Blood Count 6.5 K/mm3 (4.4-11.0)
[2022-05-06 11:00] LABS: ALB/GLOB Ratio 0.9 RATIO (0.9-2.4); AST(SGOT) 13 U/L (15-37); Alanine Aminotransfer ALT/SGPT 40 U/L (16-61); Albumin, Serum 3.5 g/dL (3.2-5.0); Alkaline Phosphatase 80 U/L (45-117); Anion Gap 5 (5-15); BUN 20 mg/dL (7-18); BUN/Creat Ratio 21.6 RATIO (10-20); Calcium,Total 8.6 mg/dL (8.5-10.1); Chloride 110 mmol/L (98-107); Creatinine, Serum 0.93 mg/dL (0.70-1.30); EST Glomerular Filtration Rate 89 mL/min (>60); Est Glom Filt Rate - Afr Amer 107 mL/min (>60); Globulin 3.7 g/dL (2.2-4.2); Glucose 101 mg/dL (74-106); Potassium 4.2 mmol/L (3.5-5.1); Protein, Total 7.2 g/dL (6.4-8.2); Sodium Level 140 mmol/L (136-145)
== END | disposition home or self-care (01) ==
PROVIDERS: PCP Family Medicine; Visit Provider Internal Medicine Rheumatology
DX: L40.59 Other psoriatic arthropathy (principal); L40.8 Other psoriasis; Z79.899 Other long term (current) drug therapy
CPT/HCPCS: 36415; 80053; 85025

== ENCOUNTER → 2022-07-24 | Outpatient (CLI) | payer OTHER, SELFPAY ==
[2022-07-24 12:40] LABS: Absolute Lymphocyte Count 1.27 X10^3/uL (0.83-4.51); Absolute Neutrophil Count 3.4 X10^3/uL (2.0-7.7); Basophil# 0.04 X10^3/uL; Basophil% 0.7 % (0-1); Eosinophil# 0.12 X10^3/uL; Eosinophils% 2.1 % (0-5); Hematocrit 43.6 % (40-54); Hemoglobin 14.5 g/dL (13.0-16.5); Lymphocyte # 1.27 X10^3/ul (0.83-4.51); Lymphocyte % 22.3 % (19-41); Mean Corp Hgb Conc 33.3 g/dL (32-36); Mean Corpuscular Hgb 32.2 pg (27.0-32.0); Mean Corpuscular Volume 96.7 fL (80-94); Mean Platelet Vol. 11.4 fl (6.2-12.0); Monocyte# 0.86 X10^3/uL; Monocyte% 15.1 % (0-10); NRBC Flagged by Analyzer 0 % (0-5); Neutrophil # 3.39 X10^3/uL (2.7-7.7); Neutrophil % 59.4 % (47-70); Platelet Count 144 K/mm3 (150-450); RBC Distribution Width CV 13.7 % (11.6-14.6); RBC Distribution Width SD 48.4 fl (35.1-43.9); Red Blood Count 4.51 M/mm3 (4.6-6.2); White Blood Count 5.7 K/mm3 (4.4-11.0)
[2022-07-24 13:06] LABS: Hemoglobin A1c 5.9 % (3.8-5.6)
[2022-07-24 13:12] LABS: Vitamin D,25 Hydroxy 50.6 ng/mL
[2022-07-24 14:06] LABS: ALB/GLOB Ratio 1.1 RATIO (0.9-2.4); AST(SGOT) 19 U/L (15-37); Alanine Aminotransfer ALT/SGPT 29 U/L (16-61); Albumin, Serum 3.5 g/dL (3.2-5.0); Alkaline Phosphatase 78 U/L (45-117); Anion Gap 5 (5-15); BUN 18 mg/dL (7-18); BUN/Creat Ratio 18.2 RATIO (10-20); Calcium,Total 8.9 mg/dL (8.5-10.1); Chloride 108 mmol/L (98-107); Cholesterol 177 mg/dL (200); Creatinine, Serum 0.99 mg/dL (0.70-1.30); EST Glomerular Filtration Rate 82 mL/min (>60); Est Glom Filt Rate - Afr Amer 99 mL/min (>60); Free T3 2.7 pg/mL (2.18-3.98); Globulin 3.3 g/dL (2.2-4.2); Glucose 85 mg/dL (74-106); High Density Lipoprotein 42 mg/dL; PSA,Total - Annual Screen 2.41 ng/mL (0.00-4.00); Potassium 4.1 mmol/L (3.5-5.1); Protein, Total 6.8 g/dL (6.4-8.2); Sodium Level 140 mmol/L (136-145); Triglycerides 119 mg/dL; Very Low Density Lipoprotein 24 mg/dL (5-40)
== END | disposition home or self-care (01) ==
PROVIDERS: PCP Internal Medicine; Referring Provider Internal Medicine Rheumatology; Visit Provider Internal Medicine Rheumatology
DX: L40.50 Arthropathic psoriasis, unspecified (principal); E11.9 Type 2 diabetes mellitus without complications; L40.8 Other psoriasis; M21.40 Flat foot [pes planus] (acquired), unspecified foot; E78.5 Hyperlipidemia, unspecified; H40.9 Unspecified glaucoma; Z79.899 Other long term (current) drug therapy; Z12.5 Encounter for screening for malignant neoplasm of prostate; E55.9 Vitamin D deficiency, unspecified
CPT/HCPCS: 36415; 77063; 77067; 80053; 80061; 82306; 83036; 84153; 84439; 84443; 84481; 85025; G0103

== ENCOUNTER 2022-10-30 08:16 | Outpatient (CLI) | payer OTHER, SELFPAY ==
[2022-10-30 09:24] LABS: Absolute Lymphocyte Count 1.73 X10^3/uL (0.83-4.51); Absolute Neutrophil Count 2.9 X10^3/uL (2.0-7.7); Basophil# 0.03 X10^3/uL; Basophil% 0.6 % (0-1); Eosinophil# 0.14 X10^3/uL; Eosinophils% 2.6 % (0-5); Hematocrit 41.6 % (40-54); Hemoglobin 13.9 g/dL (13.0-16.5); Lymphocyte # 1.73 X10^3/ul (0.83-4.51); Lymphocyte % 31.9 % (19-41); Mean Corp Hgb Conc 33.4 g/dL (32-36); Mean Corpuscular Hgb 31.8 pg (27.0-32.0); Mean Corpuscular Volume 95.2 fL (80-94); Mean Platelet Vol. 11.2 fl (6.2-12.0); Monocyte# 0.61 X10^3/uL; Monocyte% 11.3 % (0-10); NRBC Flagged by Analyzer 0 % (0-5); Neutrophil # 2.88 X10^3/uL (2.7-7.7); Platelet Count 166 K/mm3 (150-450); RBC Distribution Width CV 13.4 % (11.6-14.6); RBC Distribution Width SD 46.7 fl (35.1-43.9); Red Blood Count 4.37 M/mm3 (4.6-6.2); White Blood Count 5.4 K/mm3 (4.4-11.0)
[2022-10-30 10:15] LABS: ALB/GLOB Ratio 1.1 RATIO (0.9-2.4); AST(SGOT) 19 U/L (15-37); Alanine Aminotransfer ALT/SGPT 24 U/L (16-61); Albumin, Serum 3.6 g/dL (3.2-5.0); Alkaline Phosphatase 80 U/L (45-117); Anion Gap 5 (5-15); BUN 20 mg/dL (7-18); BUN/Creat Ratio 20.7 RATIO (10-20); Calcium,Total 8.6 mg/dL (8.5-10.1); Chloride 112 mmol/L (98-107); Creatinine, Serum 0.97 mg/dL (0.70-1.30); EST Glomerular Filtration Rate 84 mL/min (>60); Est Glom Filt Rate - Afr Amer 102 mL/min (>60); Globulin 3.4 g/dL (2.2-4.2); Glucose 84 mg/dL (74-106); Sodium Level 142 mmol/L (136-145)
== END 2022-10-30 23:59 | disposition home or self-care (01) ==
LOC: LAB 08:17
PROVIDERS: PCP Internal Medicine; Referring Provider Internal Medicine Rheumatology; Visit Provider Internal Medicine Rheumatology
DX: L40.59 Other psoriatic arthropathy (principal); Z79.899 Other long term (current) drug therapy
CPT/HCPCS: 36415; 80053; 85025

== ENCOUNTER → 2023-01-28 | Outpatient (CLI) | payer OTHER, SELFPAY ==
[2023-01-28 09:32] LABS: Absolute Lymphocyte Count 2.28 X10^3/uL (0.83-4.51); Absolute Neutrophil Count 2.9 X10^3/uL (2.0-7.7); Basophil# 0.04 X10^3/uL; Basophil% 0.7 % (0-1); Eosinophil# 0.16 X10^3/uL; Eosinophils% 2.7 % (0-5); Hematocrit 40.4 % (40-54); Hemoglobin 13.2 g/dL (13.0-16.5); Lymphocyte # 2.28 X10^3/ul (0.83-4.51); Lymphocyte % 37.8 % (19-41); Mean Corp Hgb Conc 32.7 g/dL (32-36); Mean Corpuscular Volume 94.8 fL (80-94); Mean Platelet Vol. 10.6 fl (6.2-12.0); Monocyte# 0.61 X10^3/uL; Monocyte% 10.1 % (0-10); NRBC Flagged by Analyzer 0 % (0-5); Neutrophil # 2.91 X10^3/uL (2.7-7.7); Neutrophil % 48.2 % (47-70); Platelet Count 167 K/mm3 (150-450); RBC Distribution Width CV 13.5 % (11.6-14.6); RBC Distribution Width SD 46.3 fl (35.1-43.9); Red Blood Count 4.26 M/mm3 (4.6-6.2)
[2023-01-28 10:00] LABS: ALB/GLOB Ratio 1.1 RATIO (0.9-2.4); AST(SGOT) 13 U/L (15-37); Alanine Aminotransfer ALT/SGPT 29 U/L (16-61); Albumin, Serum 3.4 g/dL (3.2-5.0); Alkaline Phosphatase 71 U/L (45-117); Anion Gap 6 (5-15); BUN 14 mg/dL (7-18); BUN/Creat Ratio 15.1 RATIO (10-20); Calcium,Total 8.7 mg/dL (8.5-10.1); Chloride 111 mmol/L (98-107); Creatinine, Serum 0.92 mg/dL (0.70-1.30); EST Glomerular Filtration Rate 89 mL/min (>60); Est Glom Filt Rate - Afr Amer 107 mL/min (>60); Globulin 3.2 g/dL (2.2-4.2); Glucose 100 mg/dL (74-106); Potassium 3.7 mmol/L (3.5-5.1); Protein, Total 6.6 g/dL (6.4-8.2); Sodium Level 142 mmol/L (136-145)
== END | disposition home or self-care (01) ==
LOC: LAB 09:16
PROVIDERS: PCP Internal Medicine; Referring Provider Internal Medicine Rheumatology; Visit Provider Internal Medicine Rheumatology
DX: L40.59 Other psoriatic arthropathy (principal); E11.9 Type 2 diabetes mellitus without complications; L40.8 Other psoriasis; M21.40 Flat foot [pes planus] (acquired), unspecified foot; E78.5 Hyperlipidemia, unspecified; H40.9 Unspecified glaucoma; Z79.899 Other long term (current) drug therapy
CPT/HCPCS: 36415; 80053; 85025

== ENCOUNTER 2023-03-28 06:55 | Day surgery (SDC) | payer OTHER, SELFPAY ==
[2023-03-28] VITALS (7 sets, daily range): BP systolic 109–127; BP diastolic 73–85; PULSE 69–76; RESP 16; TEMP 36.3–36.8; O2SAT 92–95; BMI 30.9
--- NOTE | 2023-03-28 07:10 | PCM.HP.BLA ---
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 Is patient in pain?: No Allergies amoxicillin Allergy (Verified 08/01/22 09:35) unknownerythromycin base Allergy (Verified 08/01/22 09:35) unknownlatanoprost [From Xalatan] Allergy (Verified 08/01/22 09:35) unknown Medications ixekizumab 80 mg/mL subcutaneous syringe (Taltz Syringe) 80 mg subcut Q4W 05/03/21 [History Confirmed 08/01/22] b complex PO 07/04/22 [History Confirmed 08/01/22] eldeberry tincture PO 07/04/22 [History Confirmed 08/01/22] folic acid 1 mg tablet 2 mg PO DAILY 07/04/22 [History Confirmed 08/01/22] metformin 500 mg tablet,extended release 24 hr 500 mg PO DAILY #90 tabs 07/04/22 [Rx Confirmed 08/01/22] methotrexate sodium 10 mg tablet 20 mg PO QWEEK 07/04/22 [History Confirmed 08/01/22] prednisone 1 mg tablet 1 mg PO DAILY PRN 07/04/22 [History Confirmed 08/01/22] probiotic PO 07/04/22 [History Confirmed 08/01/22] vit d3 PO 07/04/22 [History Confirmed 08/01/22] vit e PO 07/04/22 [History Confirmed 08/01/22] PFSH Medical History Arthritis COVID-19 Diabetes Surgical History H/O tooth extraction Hx of eye surgery Family History Other Cancer Diabetes Heart disease Psoriasis Social History Smoking Status: Never smoker alcohol intake: current alcohol intake frequency: holidays/special occasions only HPI HPI HPI: 61-year-old gentleman is referred by Dr. Romy Woods for screening colonoscopy. A written copy of my surgical consult recommendations will return to him. The patient apparently has previously submitted a Cologuard test but has never had a colonoscopy. He does have psoriatic arthritis. She has no specific complaints today. No bright red blood per rectum or melena. No abdominal pain. No unexpected weight loss. ROS General General: No weight change, appetite, fatigue, colon cancer, breast cancer or weakness HEENT HEENT: Yes eye surgery; No difficulty swallowing, eye injury, swollen glands or hoarseness Endo Endocrine: Yes diabetes mellitus; No thyroid disease, thyroid cancer, Hair loss, heat intolerance or cold intolerance Skin Skin: No rash or changing moles Breast Breast: No left breast lump, right breast lump, nipple discharge, breast pain, abnormal mammogram, abnormal US or breast enlargement Musc Musculoskeletal: Yes arthritis; No back problems, rheumatoid arthritis, gout or joint pain Additional Details: psoriatic arthritis Cardio Cardiovascular: No murmur, pacemaker, heart disease, atrial fibrillation, high blood pressure, heart attack, heart stent, palpitations, shortness of breat with exertion or chest pain Psych Psychiatric: No depression, anxiety or hearing voices Resp Respiratory: No shortness of breath, No sleep apnea, No cough, No COPD, No asthma, No emphysema and No wheezing Gastro Gastrointestinal: No abdominal pain, No nausea or vomiting, No diarrhea, No constipation, No blood in stool, No acid reflux, No hemorrhoids, No ulcers, No gallbladder problem and No black,tarry stools Walt Hematologic: No blood thinners, No blood disorders, No bleeding, No anemia and No blood clots Neuro Neurologic: No system reviewed and no additional complaints, except as documented, No as per HPI, No abnormal gait, No abnormal hearing, No abnormal movements, No abnormal speech, No behavioral changes, No burning sensations, No confusion, No convulsions, No disequilibrium, No dizziness, No localized weakness, No frequent falls, No headache(s), No lack of coordination, No loss of vision, No memory loss, No numbness, No other visual disturbances, No radicular pain, No restless legs, No sensory deficit, No syncope, No tingling, No tremor(s), No weakness and No other Exam Const General: cooperative, healthy appearing, comfortable and no acute distress Other: Speech is understandable somewhat slow and hesitant [facility] Head: normal to inspection Eyes General: appearance normal, both eyes and all related structures Neck Neck: normal visual inspection Chest Chest palpation & inspection: normal inspection of the chest Resp Effort & Inspection: normal respiratory effort Auscultation: clear to auscultation bilaterally Cardio Rate: regular rate Rhythm: regular rhythm GI Palpation: soft and no hepatosplenomegaly Auscultation: normal bowel sounds Musc Cervical Spine: normal cervical lordosis Neuro General: patient alert, patient awake and patient oriented x3 Extrem Other: No calf swelling or tenderness Psych Appearance: grossly normal Assessment and Plan Assessment and Plan (1) Screening for intestinal cancer: Status: Acute Plan: I recommended the patient a screening colonoscopy with possible biopsy or polypectomy as indicated. He is aware of the technique, benefit, risk and alternatives. He has had an opportunity to ask and have questions answered. We will schedule procedure at his discretion. I appreciate the opportunity of assisting with the surgical care. Copy: Dr. Romy Hinson M.D., F.A.C.S The patient is otherwise been in good health. History and physical was reviewed and there are no changes. He had social items to attend to since his office visit. We will proceed with planned colonoscopy with possible biopsy or polypectomy as indicated. Jeancarlos Hinson M.D., F.A.C.S.
[2023-03-28] MEDS: Lactated Ringers 1,000 ML 15 ML IV (07:15)
--- NOTE | 2023-03-28 08:15 | OP.CCLET_ITS ---
03/28/2023 Romy Woods [facility] [address] [place] [address] Re : Colonoscopy procedure for Ki Wheeler Dear Dr. Woods This procedure was performed on Tuesday, March 28, 2023. My impressions and recommendations are as follows: Impressions : - Non-thrombosed internal hemorrhoids and internal hemorrhoids that prolapse with straining, but spontaneously regress to the resting position (Grade II) found on digital rectal exam. - One 6 mm polyp in the distal sigmoid colon, removed with a cold snare. Resected and retrieved. - Diverticulosis in the sigmoid colon. Recommendations : - Discharge patient to home. - Resume previous diet. - Continue present medications. - Repeat colonoscopy in 5 years for surveillance based on pathology results. - Telephone my office for pathology results in 1 week. My findings are described in the full procedure note, which is enclosed. If I can be of further assistance, please feel free to contact me at Doctor phone number(s): Work: . Sincerely, Jeancarlos Hinson MD 03/28/2023 8:14:36 AM This report has been signed electronically.
--- NOTE | 2023-03-28 08:15 | COLBX_PTH ---
PATIENT: KUNAL BOOTH LOC: EN U#:[id number] AGE/SX: 62/M ROOM: RE03/28/[address]: Dr. Jeancarlos Hinson MD : 1960 BED: DIS: 03/28/2023 SPEC #: [id number] RECD: 03/28/23 10:59 STATUS: MELANIE FRANCISCA #: [id number] CORWIN: 03/28/23 08:[address]: Jeancarlos Hinson DEPT: SURGICAL PATHOLOGY RECD BY: Rose Moran ENTERED: 03/28/23 12:23 SP TYPE: COLON BX OTHR DR: Dr. Romy Woods MD Tissues: Sigmoid colon biopsy Procedures: Surgery Specimen Level IV HEADER OPERATION: Colonoscopy, polypectomy PRE-OP DIAGNOSIS: Screening TISSUE SUBMITTED: Distal sigmoid polyp MICROSCOPIC DIAGNOSIS Distal sigmoid polyp, polypectomy: Tubular adenoma. SJ:emmanuel 03/31/2023 MICROSCOPIC DESCRIPTION Slides are reviewed. GROSS DESCRIPTION Received in fixative is one container labeled with the patient's name and designated distal sigmoid polyp. The specimen consists of one irregular fragment of light szymanski soft tissue that measures 0.5 x 0.2 x 0.1 cm. The specimen is totally submitted in one cassette. / AM:emmanuel 03/28/2023 TC:1 CPT: 70491
--- NOTE | 2023-03-28 08:15 | OP.COLON_ITS ---
Patient Name: Ki Wheeler Procedure Date: 03/28/2023 7:48 AM Date of : 1960 Age: 62 Procedure: Colonoscopy Indications: Screening for colorectal malignant neoplasm Providers: Jeancarlos Hinson MD Referring MD: Jeancarlos Hinson MD Medicines: See the Anesthesia note for documentation of the administered medications Patient Profile: Last Colonoscopy: none. The patient's first colonoscopy is today. Complications: No immediate complications. Procedure: Pre-Anesthesia Assessment: - Prior to the procedure, a History and Physical was performed, and patient medications and allergies were reviewed. The patient's tolerance of previous anesthesia was also reviewed. The risks and benefits of the procedure and the sedation options and risks were discussed with the patient. All questions were answered, and informed consent was obtained. Prior Anticoagulants: The patient has taken no anticoagulant or antiplatelet agents. ASA Grade Assessment: II - A patient with mild systemic disease. After reviewing the risks and benefits, the patient was deemed in satisfactory condition to undergo the procedure. After I obtained informed consent, the scope was passed under direct vision. Throughout the procedure, the patient's blood pressure, pulse, and oxygen saturations were monitored continuously. The Colonoscope was introduced through the anus and advanced to the ileocecal valve. The colonoscopy was performed without difficulty. The patient tolerated the procedure well. The quality of the bowel preparation was good. The ileocecal valve and the appendiceal orifice were photographed. Scope In: 7:54:27 AM Scope Withdrawal Time 0 hours 10 minutes 5 seconds Scope Out: 8:08:29 AM Total Procedure Duration Time 0 hours 14 minutes 2 seconds Findings: The digital rectal exam findings include non-thrombosed internal hemorrhoids and internal hemorrhoids that prolapse with straining, but spontaneously regress to the resting position (Grade II). Pertinent negatives include normal prostate (size, shape, and consistency). A 6 mm polyp was found in the distal sigmoid colon. The polyp was sessile. The polyp was removed with a cold snare. Resection and retrieval were complete. Multiple diverticula were found in the sigmoid colon. Impression: - Non-thrombosed internal hemorrhoids and internal hemorrhoids that prolapse with straining, but spontaneously regress to the resting position (Grade II) found on digital rectal exam. - One 6 mm polyp in the distal sigmoid colon, removed with a cold snare. Resected and retrieved. - Diverticulosis in the sigmoid colon. Recommendation: - Discharge patient to home. - Resume previous diet. - Continue present medications. - Repeat colonoscopy in 5 years for surveillance based on pathology results. - Telephone my office for pathology results in 1 week. Procedure Code(s): --- Professional --- 70133, Colonoscopy, flexible; with removal of tumor(s), polyp(s), or other lesion(s) by snare technique Diagnosis Code(s): --- Professional --- Z12.11, Encounter for screening for malignant neoplasm of colon K64.1, Second degree hemorrhoids D12.5, Benign neoplasm of sigmoid colon K57.30, Diverticulosis of large intestine without perforation or abscess without bleeding CPT copyright 2021 [employer]. All rights reserved. The codes documented in this report are preliminary and upon carpenters supervisor review may be revised to meet current compliance requirements. Jeancarlos Hinson MD 03/28/2023 8:14:36 AM This report has been signed electronically. Number of Addenda: 0 Note Initiated On: 03/28/2023 7:48 AM
[2023-03-28 08:45] LABS: Bedside Glucose 94 mg/dL (74-106)
== END 2023-03-28 09:07 | disposition home or self-care (01) ==
LOC: EN 07:00 → AC 07:01
PROVIDERS: PCP Internal Medicine; Referring Provider Internal Medicine; Visit Provider Surgery
PROC: 0DJD8ZZ Inspection of Lower Intestinal Tract, Via Natural or Artificial Opening Endoscopic (ICD-10-PCS; CPT 45378; principal; 2023-03-28 08:10)
DX: Z12.11 Encounter for screening for malignant neoplasm of colon (principal); L40.50 Arthropathic psoriasis, unspecified; E11.9 Type 2 diabetes mellitus without complications; K64.8 Other hemorrhoids; Z79.84 Long term (current) use of oral hypoglycemic drugs; K57.30 Diverticulosis of large intestine without perforation or abscess without bleeding; K64.1 Second degree hemorrhoids; D12.5 Benign neoplasm of sigmoid colon; Z79.52 Long term (current) use of systemic steroids
CPT/HCPCS: 45385; 82962; 88305; J7120; J1610; J2405

== ENCOUNTER → 2023-04-29 | Outpatient (CLI) | payer OTHER, SELFPAY ==
--- OUTSIDE RECORDS SUMMARY | 2023-04-29 12:11 | XMS RPT_ITS | CCD ---
Author Name Unknown Address [address] [place] [address] Organization [facility] Care Team Providers Care Coremaker Name Role Phone Park Collier Primary Care Provider Unavail able Allergies Allergy Classification Reported Allergen(s) Allergy Type Date of Onset Reaction(s) Facility (1 source) Amoxicillin Drug Allergy 11-27-2006 Rash [facility] (1 source) Erythromycin Drug Allergy 11-27-2006 Rash [facility] Medications Completed/Discontinued Medications Medication Drug Class(es) Dates Sig (Normalized) Sig (Original) brimonidine tartrate 1.5 mg/ml ophthalmic solution (1 source) alpha-Adrenergic Agonist Start: 11-27-2006 brimonidine (ALPHAGAN P) 0.15 % OPHTHALMIC Drop Use twice daily. 0 11/27/2006 Active Results Test Name Value Interpretation Reference Range Facil ity Encounters Encounter Date Encounter Type Care Provider Facility Start: 04-23-2021 End: 04-23-2021 Subsequent hospital visit by physician Philip Davila Work Phone: MIRLANDE ANICETO GONZALEZ Plan of Treatment Date Care Activity Detail Author Start: 12-27-2020 Influenza vaccination INFLUENZA (#1) [facility] Start: 2017 PROSTATE CANCER SCRE ENING DISCUSSION PROSTATE CANCER SCREENING DISCUSSION [facility] Start: 2012 SHINGRIX VACCINE (1 of 2) SHINGRIX V ACCINE (1 of 2) [facility] Start: 01-01-2008 COLOGUARD (FIT-DNA) COLOGUARD (FIT-D NA) [facility] Start: 01-01-2008 Colonoscopy COLONOSCOPY [facility] Start: 01-01-2008 COLORECTAL CANCER SCREENING COLORECTAL CANCER SCREENING [facility] Start: 01-01-[address] [facility] Start: 01-01-2008 [facility] Start: 01-01-2008 FECAL OCCULT BLOOD FECAL OCCULT BLOO D [facility] Start: 01-01-2008 SIGMOIDOSCOPY SIGMOIDOSCOPY [facility] Start: 1997 LIPID SCREEN LIPID SCREEN [facility] Start: 1981 Urine microalbumin profile DTAP,TDAP ,TD (1 - Tdap) [facility] Start: 1980 HEPATITIS C SCREENING HEPATITIS C SC REENING [facility] Start: 1980 HIV SCREENING HIV SCREENING [facility] Start: 1974 Adult depression scr eening assessment DEPRESSION SCREENING [facility] Start: 01-01-1968 COVID-19 VACCINE (1) COVID-19 VACCIN E (1) [facility] Payers Date Payer Category Payer Unknown [employer] [id number] 2016-Present [phone] [address] [address] [place] [address] PPO [id number] Social History Date Type Detail Facility Tobacco smoking stat [facility] Never smoked tobacco [facility] Start: 03-20-2007 Alcohol intake Current drinke r of alcohol (finding) [facility] Start: 1960 Sex Assigned At Not on file C [facility] Summary Purpose Family History No Family History Records Found Advance Directives No Advanced Directives Records Found Additional Source Comments Source Comments (unrecognize d section and content) In the event this informatio n is protected by the Federal Confidentiality of Alcohol and Drug Abuse Patient Records regulations: The Federal rules restrict any use of the information to criminally investigate or prosecute any alcohol or drug abuse patient.[facility] Care Teams (unrecognized sec tion and content) (unrecognized sect ion and content) No Status Records Found INFORMATION SOURCE (unrecogn ized section and content) FOR RECORDS PERTAINING TO PATIENTS WHO ARE OR HAVE BEEN ENROLLED IN A CHEMICAL DEPENDENCY/SUBSTANCEABUSE PROGRAM, SOME INFORMATION MAY BE OMITTED. This clinical summary was aggregated from multiple sources. Caution should be exercised in using it in the provision of clinical care. This summary normalizes information from multiple sources, and as a consequence, information in this document may materially change the coding, format and clinical context of patient data. In addition, data may be omitted in some cases. CLINICAL DECISIONS SHOULD BE BASED ON THE PRIMARY CLINICAL RECORDS. [facility] [employer] [facility]. provides no warranty or guarantee of the accuracy or completeness of information in this document.
[2023-04-29 12:39] LABS: Absolute Lymphocyte Count 1.74 X10^3/uL (0.83-4.51); Absolute Neutrophil Count 4.6 X10^3/uL (2.0-7.7); Basophil# 0.06 X10^3/uL; Basophil% 0.8 % (0-1); Eosinophils% 2.8 % (0-5); Hematocrit 47.1 % (40-54); Hemoglobin 14.9 g/dL (13.0-16.5); Lymphocyte # 1.74 X10^3/ul (0.83-4.51); Mean Corp Hgb Conc 31.6 g/dL (32-36); Mean Corpuscular Hgb 30.7 pg (27.0-32.0); Mean Corpuscular Volume 96.9 fL (80-94); Monocyte# 0.59 X10^3/uL; Monocyte% 8.1 % (0-10); NRBC Flagged by Analyzer 0 % (0-5); Neutrophil # 4.61 X10^3/uL (2.7-7.7); Neutrophil % 63.5 % (47-70); Platelet Count 191 K/mm3 (150-450); RBC Distribution Width CV 13.5 % (11.6-14.6); RBC Distribution Width SD 48.1 fl (35.1-43.9); Red Blood Count 4.86 M/mm3 (4.6-6.2); White Blood Count 7.3 K/mm3 (4.4-11.0)
[2023-04-29 13:13] LABS: AST(SGOT) 23 U/L (15-37); Alanine Aminotransfer ALT/SGPT 64 U/L (16-61); Albumin, Serum 3.5 g/dL (3.2-5.0); Alkaline Phosphatase 76 U/L (45-117); Anion Gap 4 (5-15); BUN 20 mg/dL (7-18); Calcium,Total 8.8 mg/dL (8.5-10.1); Chloride 111 mmol/L (98-107); Creatinine, Serum 0.95 mg/dL (0.70-1.30); EST Glomerular Filtration Rate 86 mL/min (>60); Est Glom Filt Rate - Afr Amer 104 mL/min (>60); Globulin 3.4 g/dL (2.2-4.2); Glucose 108 mg/dL (74-106); Potassium 4.2 mmol/L (3.5-5.1); Protein, Total 6.9 g/dL (6.4-8.2); Sodium Level 143 mmol/L (136-145)
== END | disposition home or self-care (01) ==
LOC: LAB 11:16
PROVIDERS: PCP Internal Medicine; Referring Provider Internal Medicine Rheumatology; Visit Provider Internal Medicine Rheumatology
DX: L40.59 Other psoriatic arthropathy (principal); Z79.899 Other long term (current) drug therapy
CPT/HCPCS: 36415; 80053; 85025

== ENCOUNTER → 2023-07-03 | Outpatient (CLI) | payer OTHER, SELFPAY ==
--- OUTSIDE RECORDS SUMMARY | 2023-07-03 11:26 | XMS RPT_ITS | CCD ---
Author Name Unknown Address [address] [place] [address] Organization [facility] Care Team Providers Care School Fundraising Director Name Role Phone Park Collier Primary Care Provider Unavail able Allergies Allergy Classification Reported Allergen(s) Allergy Type Date of Onset Reaction(s) Facility (1 source) Amoxicillin Drug Allergy 11-27-2006 Rash [facility] (1 source) Erythromycin Drug Allergy 11-27-2006 Rash [facility] Medications Completed/Discontinued Medications Medication Drug Class(es) [...] physician Philip Davila Work Phone: MIRLANDE ANICETO CARVERAimee Plan of Treatment Date Care Activity Detail Author Start: 12-27-2020 Influenza vaccination INFLUENZA (#1) [facility] Start: 2017 PROSTATE CANCER SCRE ENING DISCUSSION PROSTATE CANCER SCREENING DISCUSSION [facility] Start: 2012 SHINGRIX VACCINE (1 of 2) SHINGRIX V ACCINE (1 of 2) [facility] Start: 01-01-2008 COLOGUARD (FIT-DNA) COLOGUARD (FIT-D NA) [facility] Start: 01-01-2008 Colonoscopy COLONOSCOPY [facility] Start: 01-01-2008 COLORECTAL CANCER SCREENING COLORECTAL CANCER SCREENING [facility] Start: 01-01-[address] COLONOGRAPHY [facility] Start: 01-01-2008 [facility]ABET[facility] Start: 01-01-2008 FECAL OCCULT BLOOD FECAL OCCULT BLOO D [facility] Start: 01-01-[address] [facility] Start: 1997 LIPID SCREEN LIPID SCREEN [facility] Start: 1981 Urine microalbumin profile DTAP,TDAP ,TD (1 - Tdap) [facility] Start: 1980 HEPATITIS C SCREENING HEPATITIS C SC REENING [facility] Start: 1980 HIV SCREENING HIV SCREENING [facility] Start: 1974 Adult depression scr eening assessment DEPRESSION SCREENING [facility] Start: 01-01-1968 COVID-19 VACCINE (1) COVID-19 VACCIN E (1) [facility] Payers Date Payer Category Payer Unknown [employer] [id number] 2016-Present [phone] [address] [address] [place] [address] PPO [id number] Social History Date Type Detail Facility Tobacco smoking stat [facility] Never smoked tobacco [facility] Start: 03-20-2007 Alcohol intake Current drinke r of alcohol (finding) [facility] Start: 1960 Sex Assigned At Not on file C [facility] Summary Purpose Family History No Family [...] or prosecute any alcohol or drug abuse patient.[facility] Care Teams (unrecognized sec tion and [...] BE BASED ON THE PRIMARY CLINICAL RECORDS. [facility] [employer] [facility]. provides no warranty or guarantee of the accuracy or completeness of information in this document.
[2023-07-03 11:43] LABS: Vitamin D,25 Hydroxy 51.3 ng/mL
[2023-07-03 11:54] LABS: Cholesterol 178 mg/dL (200); Free T3 2.9 pg/mL (2.18-3.98); High Density Lipoprotein 40 mg/dL; T4 Free Direct 0.95 ng/dL (0.76-1.46); Thyroid Stim Hormone (TSH) 2.04 uIU/mL (0.358-3.74); Triglycerides 179 mg/dL; Very Low Density Lipoprotein 36 mg/dL (5-40)
[2023-07-03 11:58] LABS: Hemoglobin A1c 6.1 % (3.8-5.6)
== END | disposition home or self-care (01) ==
LOC: LAB 10:59
PROVIDERS: PCP Internal Medicine; Visit Provider Internal Medicine
DX: Z13.220 Encounter for screening for lipoid disorders (principal); L40.50 Arthropathic psoriasis, unspecified; E11.9 Type 2 diabetes mellitus without complications; M19.90 Unspecified osteoarthritis, unspecified site; E55.9 Vitamin D deficiency, unspecified
CPT/HCPCS: 36415; 80061; 82306; 83036; 84439; 84443; 84481

== ENCOUNTER → 2023-07-08 | Outpatient (CLI) | payer OTHER, SELFPAY ==
[2023-07-08 10:16] LABS: Absolute Lymphocyte Count 1.75 X10^3/uL (0.83-4.51); Absolute Neutrophil Count 2.5 X10^3/uL (2.0-7.7); Basophil# 0.03 X10^3/uL; Basophil% 0.6 % (0-1); Eosinophil# 0.15 X10^3/uL; Eosinophils% 3.1 % (0-5); Hematocrit 44.5 % (40-54); Hemoglobin 14.5 g/dL (13.0-16.5); Lymphocyte # 1.75 X10^3/ul (0.83-4.51); Lymphocyte % 35.6 % (19-41); Mean Corp Hgb Conc 32.6 g/dL (32-36); Mean Corpuscular Volume 95.1 fL (80-94); Mean Platelet Vol. 10.8 fl (6.2-12.0); Monocyte# 0.49 X10^3/uL; NRBC Flagged by Analyzer 0 % (0-5); Neutrophil # 2.47 X10^3/uL (2.7-7.7); Neutrophil % 50.3 % (47-70); Platelet Count 174 K/mm3 (150-450); RBC Distribution Width CV 13.5 % (11.6-14.6); Red Blood Count 4.68 M/mm3 (4.6-6.2); White Blood Count 4.9 K/mm3 (4.4-11.0)
[2023-07-08 10:44] LABS: ALB/GLOB Ratio 1.2 RATIO (0.9-2.4); AST(SGOT) 17 U/L (15-37); Alanine Aminotransfer ALT/SGPT 40 U/L (16-61); Albumin, Serum 3.6 g/dL (3.2-5.0); Alkaline Phosphatase 71 U/L (45-117); Anion Gap 3 (5-15); BUN 16 mg/dL (7-18); BUN/Creat Ratio 16.6 RATIO (10-20); Calcium,Total 8.9 mg/dL (8.5-10.1); Chloride 110 mmol/L (98-107); Creatinine, Serum 0.96 mg/dL (0.70-1.30); EST Glomerular Filtration Rate 85 mL/min (>60); Est Glom Filt Rate - Afr Amer 102 mL/min (>60); Globulin 3.1 g/dL (2.2-4.2); Glucose 94 mg/dL (74-106); Potassium 4.2 mmol/L (3.5-5.1); Protein, Total 6.7 g/dL (6.4-8.2); Sodium Level 140 mmol/L (136-145)
== END | disposition home or self-care (01) ==
LOC: LAB 09:29
PROVIDERS: PCP Internal Medicine; Referring Provider Internal Medicine Rheumatology; Visit Provider Internal Medicine Rheumatology
DX: L40.59 Other psoriatic arthropathy (principal); E11.9 Type 2 diabetes mellitus without complications; L40.8 Other psoriasis; M21.40 Flat foot [pes planus] (acquired), unspecified foot; E78.5 Hyperlipidemia, unspecified; H40.9 Unspecified glaucoma; Z79.899 Other long term (current) drug therapy
CPT/HCPCS: 36415; 80053; 85025

== ENCOUNTER → 2023-07-31 | Outpatient (CLI) | payer OTHER, SELFPAY ==
--- NOTE | 2023-07-31 18:09 | STRESSREP ---
Stress Test Report Exercise myocardial perfusion stress test. 62-year-old man with a history of chest pain Stress protocol: Resting EKG demonstrates normal sinus rhythm with a rate of 65 bpm resting blood pressure is 112/76 mmHg. The patient exercised according to the regular [place] protocol for a total duration of 6 minutes and 44 seconds attaining a maximum heart rate of 130 bpm which was 81% of maximum predicted heart rate; the maximum workload was 9.2 metabolic equivalents. At rest there were no ST or T wave changes noted to suggest ischemia and at peak exercise approximately 1 mm of horizontal and downsloping ST depression noted in the inferolateral leads consistent and suggestive of ischemia. No chest pain however was noted. No clinical angina was noted the test was terminated due to the target heart rate being achieved/fatigue. The peak blood pressure was 146/70 mmHg. Rate-pressure product was 18,000. Myocardial perfusion protocol. 11.3 mCi of technetium 99m sestamibi was injected at rest. The patient exercised according to regular [place] protocol for total duration of 6 minutes and 44 seconds and at peak exercise 33.6 mCi of technetium 99m sestamibi was injected stress images were obtained stress and rest images were reconstructed in comparing the short axis vertical long and horizontal long axis. Gated images were also obtained. Perfusion SPECT analysis: Review of the stress images demonstrate normal uptake of tracer noted in all areas of the myocardium except for the lateral wall which has an extensive defect. The resting images demonstrate a persistent lateral wall defect with a mild to moderate area of lucille-infarct and mid lateral ischemia noted. A previous lateral infarct is suggested. Gated SPECT analysis: The gated ejection fraction is [65%]. Conclusion: Abnormal exercise myocardial perfusion stress test at a moderate to high workload Preserved ejection fraction. 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
== END | disposition home or self-care (01) ==
LOC: CVS 06:22
PROVIDERS: PCP Internal Medicine; Referring Provider Internal Medicine; Visit Provider Internal Medicine
DX: R06.09 Other forms of dyspnea (principal); L40.50 Arthropathic psoriasis, unspecified; E11.9 Type 2 diabetes mellitus without complications; R07.89 Other chest pain
CPT/HCPCS: 78452; 93017; A9500; A4216

== ENCOUNTER → 2023-08-04 | Outpatient (CLI) | payer OTHER, SELFPAY ==
--- NOTE | 2023-08-04 10:40 | RAD_ITS ---
STUDY: X-RAY CHEST REASON FOR EXAM: Male, 62 years old. Atypical chest pain TECHNIQUE: PA and 2 lateral views of the chest. COMPARISON: None. FINDINGS: The lungs are clear and expanded. There is no demonstrated pleural abnormality. Normal size heart. Normal mediastinum and purvi. Normal visualized pulmonary arteries. Normal visualized aortic arch and descending thoracic aorta. Normal visualized thoracic spine. Normal visualized ribs, clavicles, and shoulders. There is no demonstrated abnormality of the visualized soft tissue structures of the upper abdomen. RAD/Chest PA and Lateral IMPRESSION: Normal x-ray examination of the chest. Electronically Signed: Nolberto Tran MD at 9:00 EDT ,
[2023-08-04 11:28] LABS: Prothrombin Time (Protime)PT. 13.5 SECONDS (11.7-14.9)
[2023-08-04 11:30] LABS: Partial Thromboplast Time 25.8 Seconds (24.1-36.2)
== END | disposition home or self-care (01) ==
LOC: RAD 10:38
PROVIDERS: PCP Internal Medicine; Referring Provider Physician Assistant Medical; Visit Provider Physician Assistant Medical
DX: R94.31 Abnormal electrocardiogram [ECG] [EKG] (principal); R06.09 Other forms of dyspnea; R07.89 Other chest pain
CPT/HCPCS: 36415; 71046; 85610; 85730

== ENCOUNTER 2023-08-08 14:19 | Observation (INO) | payer OTHER, SELFPAY ==
[2023-08-07 08:18] VITALS: BMI 31.4
[2023-08-08] VITALS (10 sets, daily range): BP systolic 119–139; BP diastolic 71–94; PULSE 55–64; RESP 16–18; TEMP 36.1–36.7; O2SAT 94–99; BMI 31.3
--- NOTE | 2023-08-08 14:27 | CRPHASE1 ---
Patient Communication Patient Information PHII Cardiac Rehab Discussed with Patient:: Yes Guide to Cardiac Rehab Given to Patient:: Yes Cardiac Rehab Facility Choice List Given to Patient:: Yes Communication to Cardiac Rehab Choice Program [facility] CR PHII:: Communication Given to CR Storage Facility Rental Clerk:: Ike Arias Phase II Cardiac Rehab:: Yes Sessions:: 36 sessions - 3 days/wk, 12 weeks Cardiac Rehabilitation Info Program Information Cardiac Rehabilitation Program Information: Cardiac Rehab The cardiac rehab team at [facility] consists of highly skilled exercise physiologists, nurses, respiratory therapists and physicians working together with you. Our purpose is to help you have a full recovery and achieve the goals you set for yourself. Over the years many of our patients have returned to activities they assumed they would never do again! We can help restore your confidence and motivation to make lifestyle changes that can have a significant impact on your health and quality of life! We can help answer questions and concerns you may have about exercise, lifestyle, medications, diet, stress and anxiety which are common following a hospitalization. WE monitor ECG and vital signs during exercise and discuss your progress with you and report to your physician(s). Cardiac Rehab is proven to help reduce readmissions, improve functional capacity and lower recurrence of problems with your heart. Our Cardiac Rehab program is Certified by the [employer]-Vascular and Pulmonary Rehabilitation (AACVPR) and Accredited by the [employer] through our [facility]. You can contact us at . We invite you to call us with your questions or to get started in our program. If you have other questions or concerns be sure to ask your physician/provider during your follow-up visit. WE look forward to seeing you!
--- NOTE | 2023-08-08 14:27 | CRPH1.INSTRU ---
General Education Discussed with Patient CAD and cardiac anatomy and function:: Patient communicates acknowledgment Explanation of diagnoses and procedures:: Patient communicates acknowledgment Sign/Symptoms of SD:: Patient communicates acknowledgment Antiplatelet therapy: Patient communicates acknowledgment Proper use of NTG-SL: Patient communicates acknowledgment Emergency procedures and activation of EMS: Patient communicates acknowledgment Compliance of all prescribed medications: Patient communicates acknowledgment Smoking Risk Factors Patient Nicotine/Smoking Risk Factors Are:: Never smoked Dyslipidemia Risk Factors Patient Dyslipidemia Risk Factors Are:: Total Cholesterol, Triglycerides, HDL and LDL Recommendations Recommendations Include:: Lipid profile not available, Reviewed NCEP/ATP guidelines and Therapeutic Lifestyle Change dietary guidelines Response Code Dyslipidemia Response Code:: Patient communicates acknowledgment Overweight/Obesity Risk Factors Patient Overweight/Obesity Risk Factors Are:: Obesity - > or = 30 Recommendations Recommendations Include:: Weight loss of 5-10%, Reduced calorie diet and Exercise 5-7 times/week Response Code Overweight/Obesity:: Patient communicates acknowledgment Hypertension Risk Factors Patient Hypertension Risk Factors Are:: No documented hx of HTN Heart Disease Risk Factors Patient Heart Disease Risk Factors Are:: Family history of heart disease < 65 years old Response Code Heart Disease Response Code:: Patient communicates acknowledgment Diabetes Risk Factors Patient Diabetes Risk Factors Are:: Elevated blood sugars Recommendations Recommendations Include:: Maintain fasting blood sugars 70-110 md/dL, Maintain HgbA1c of 6% or less, Monitor blood sugar as prescribed, Diabetic dietary guidelines and Decrease/maintain body weight Response Code Diabetes:: Patient communicates acknowledgment Metabolic Syndrome Risk Factors Patient Metabolic Syndrome Risk Factors Are [3 of 5]:: Fasting blood sugar > 100 mg/dL, Waist circumference > 35 [female] or 40 [male], High triglyceride >150 and Low HDL <40 [male] or < 50 [female] Recommendations Recommendations Include:: Reinforce compliance to risk factor modifications, Patient is diabetic and Encouraged follow-up with Primary Care Physician Response Code Metabolic Syndrome Response Code:: Patient communicates acknowledgment Sedentary Recommendations Recommendations Include:: Aerobic exercise 5-7 times/week for 20-30 minutes continuously, Benefits of regular exercise, Discussed home walking program and Monitored Outpatient Cardiac Rehab Response Code Sedentary Response Code:: Patient communicates acknowledgment Stress Recommendations Recommendations Include:: Identification of stressors, and assessment of coping skills and Stress management techniques Response Code Stress Response Code:: Patient communicates acknowledgment
[2023-08-08] MEDS: 0.9% Normal Saline (1000mL) 1,000 ML 80 ML IV (14:39)
[2023-08-08 14:58] LABS: ACT Activated Clotting Time 255 sec (74-137)
--- NOTE | 2023-08-08 16:46 | CL.D_ITS ---
Patient Name: KUNAL BOOTH Study Date: 08/08/2023 Performing: Chidi Jacobsen MD Ht: 66 inches 167.64 cm : 1960 Wt: 195.3 lbs 88.45 kg Age: 62 Gender: male BSA: 1.98 PROCEDURE(S) PERFORMED DC01-(39838)LHC/COR/LV IC12-(42392/C9600)DASIA W/WO PTCA, SINGLE CORONARY ARTERY IC10-(23045)FFR, CORONARY OR GRAFT, INITIAL VESSEL CLINICAL PROFILE AND INDICATIONS Indications: Suspected CAD Heart Failure: None Stress/Imaging Date: 07/31/23Stress Test with SPECT MPI: Positive Intermediate Risk CAD Presentations: Stable angina. CONCLUSIONS Severe distal left anterior descending artery stenosis moderate proximal left anterior descending artery stenosis, severe disease noted of the first diagonal vessel and subtotally occluded first obtuse marginal vessel with retrograde filling. RECOMMENDATIONS Referred for immediate PCI DESCRIPTION OF PROCEDURE The patient arrived to the procedure lab. The risks and benefits of the procedure as well as a full description of our services here and current unavailability of surgical backup were fully explained to the patient and/or their significant other prior to the catheterization. The Timeout was completed, verifying the correct patient and procedure. The patient's procedural site was prepped and draped in the usual fashion. Local anesthetic was given subcutaneously to right radial region with Lidocaine 2%. Using a modified Seldinger technique, arterial access was obtained via the right radial artery, a 6Fr sheath was inserted. Right Coronary Artery selective angiography was then performed in multiple views using a 5 Fr. 4.0 [place] catheter. Left Coronary Artery selective angiography was performed in multiple views using a 5 Fr. JL4 catheter. Left Ventriculography was performed in [place] projection using a 5 Fr. Pigtail catheter.The arterial sheath was pulled and a TR Band was applied for hemostasis 9 ML OF AIR CORONARY ANGIOGRAPHY DOMINANCE: Right Dominant LEFT HEART ASSESSMENT Left Ventricular Ejection Fraction: by LV Gram 60 % Normal LV wall motion Normal Left Ventricular systolic function LEFT MAIN: Non-obstructive LEFT ANTERIOR DESCENDING ARTERY: Mildly calcified with moderate proximal to mid segment disease and high-grade mid to distal segment stenosis present. DIAGONAL 1: Proximal - Severely diseased proximal vessel CIRCUMFLEX ARTERY: Nondominant vessel with first obtuse marginal branch filling retrogradely from the right coronary artery RIGHT CORONARY ARTERY: Moderate diffuse disease vessel with distal right to left collaterals filling the circumflex artery distribution. COLLATERAL FLOW: Collateral flow from Right to Left COMPLICATIONS No Complications PROCEDURE MEDICATIONS Fentanyl 50 mcg IV Fentanyl 1 mcg IV Versed 1 mg IV Oxygen: 2 L/min via nasal cannula Brilinta 180 mg PO @ 08/08/2023 13:14:42 Heparin given IA 08/08/2023 12:14:03 Heparin 4000 unit(s) IV 08/08/2023 12:54:16 Heparin 1000 unit(s) IV 08/08/2023 13:17:55 Verapamil 2.5mg, Ntg 100mcgs, 3000 units of Heparin given IA 08/08/2023 12:14:03 SUMMARY OF HEMODYNAMIC DATA Time AIR REST ECG 10:58:39 AO 106/67 (85) SA 12:19:54 LV 102/3, 14 12:31:42 LV 106/4, 19 12:31:52 LV 108/5, 17 12:32:24 LVp 108/3, 14 12:32:33 AOp 104/55 (78) 12:32:38 AO 133/73 (97) 13:01:09 Signed By Chidi Jacobsen MD On 08/08/2023 17:14:45 Signed By Chidi Jacobsen MD On 08/08/2023 16:45:26 Chidi Jacobsen MD
[2023-08-08] MEDS: Atorvastatin Calcium 40 MG Tablet PO (21:32)
[2023-08-08] MEDS: Metoprolol Tartrate 25 MG Tablet PO (21:32)
[2023-08-08] MEDS: TICAGRELOR 90 MG TABLET PO (21:32)
[2023-08-09] MEDS: 0.9% Normal Saline (1000mL) 1,000 ML 80 ML IV (02:36)
[2023-08-09 02:41] VITALS: BP 127/75; PULSE 64; RESP 16; TEMP 36.7; O2SAT 95
[2023-08-09 04:57] LABS: Hematocrit 40.5 % (40-54); Hemoglobin 13.5 g/dL (13.0-16.5); Mean Corp Hgb Conc 33.3 g/dL (32-36); Mean Corpuscular Hgb 31.5 pg (27.0-32.0); Mean Corpuscular Volume 94.4 fL (80-94); Mean Platelet Vol. 11.2 fl (6.2-12.0); Platelet Count 157 K/mm3 (150-450); RBC Distribution Width CV 13.4 % (11.6-14.6); RBC Distribution Width SD 45.2 fl (35.1-43.9); Red Blood Count 4.29 M/mm3 (4.6-6.2); White Blood Count 5.5 K/mm3 (4.4-11.0)
[2023-08-09 05:26] LABS: ALB/GLOB Ratio 1.1 RATIO (0.9-2.4); AST(SGOT) 19 U/L (15-37); Alanine Aminotransfer ALT/SGPT 31 U/L (16-61); Albumin, Serum 3.2 g/dL (3.2-5.0); Alkaline Phosphatase 67 U/L (45-117); Anion Gap 5 (5-15); BUN 13 mg/dL (7-18); BUN/Creat Ratio 13.1 RATIO (10-20); Calcium,Total 8.5 mg/dL (8.5-10.1); Chloride 113 mmol/L (98-107); Creatinine, Serum 0.99 mg/dL (0.70-1.30); EST Glomerular Filtration Rate 82 mL/min (>60); Est Glom Filt Rate - Afr Amer 99 mL/min (>60); Estimated Creatinine Clearance 82.51 ml/min; Globulin 2.9 g/dL (2.2-4.2); Glucose 87 mg/dL (74-106); Potassium 3.8 mmol/L (3.5-5.1); Protein, Total 6.1 g/dL (6.4-8.2); Sodium Level 141 mmol/L (136-145)
[2023-08-09 06:00] VITALS: BMI 31.4
[2023-08-09 07:39] VITALS: BP 122/83; PULSE 61; RESP 16; TEMP 36.3; O2SAT 95
[2023-08-09 07:40] VITALS: O2SAT 93
[2023-08-09] MEDS: Aspirin E.C. 81 MG Tablet PO (09:07)
[2023-08-09] MEDS: Folic Acid 1 MG Tablet 2 MG PO (09:08)
[2023-08-09] MEDS: Cholecalciferol (VIT D3) 25 MCG TABLET (1,000 UNITS) 50 MCG PO (09:08)
[2023-08-09] MEDS: Lactobacillis Acidophilus 1 CAP PO (09:09)
[2023-08-09] MEDS: TICAGRELOR 90 MG TABLET PO (09:10)
[2023-08-09 09:11] VITALS: BP 131/74; PULSE 72
[2023-08-09] MEDS: Metoprolol Tartrate 25 MG Tablet PO (09:11)
--- NOTE | 2023-08-09 09:13 | CL.I_ITS ---
Patient Name: KUNAL BOOTH Study Date: 08/08/2023 Performing: Esther Arias MD Ht: 66 inches 167.64 cm : 1960 Wt: 195 lbs 88.45 kg Age: 62 Gender: male BSA: 1.98 PROCEDURE(S) PERFORMED IC12-(30732/C9600)DASIA W/WO PTCA, SINGLE CORONARY ARTERY IC10-([id number])FFR, CORONARY OR GRAFT, INITIAL VESSEL CLINICAL PROFILE AND CO-MORBIDITIES Indications: Suspected CAD Heart Failure: None Stress/Imaging Date: 07/31/23 Stress Test with SPECT MPI: Positive Intermediate Risk CAD Presentations: Stable angina. CONCLUSIONS Successful DASIA to mLAD RECOMMENDATIONS DESCRIPTION OF PROCEDURE The patient arrived to the procedure lab. The risks and benefits of the procedure as well as a full description of our services here and current unavailability of surgical backup were fully explained to the patient and/or their significant other prior to the catheterization. The Timeout was completed, verifying the correct patient and procedure. The patient's procedural site was prepped and draped in the usual fashion. Local anesthetic was given subcutaneously to right radial region with Lidocaine 2% Using a modified Seldinger technique,arterial access was obtained via the right radial artery, a 6Fr sheath was inserted. Right Coronary Artery selective angiography was then performed in multiple views using a 5 Fr. 4.0 [place] catheter. Left Coronary Artery selective angiography was performed in multiple views using a 5 Fr. JL4 catheter. Left Ventriculography was performed in [place] projection using a 5 Fr. Pigtail catheter. 0.035 X 150 GLIDEWIRE ANGLED Guide wire was advanced to the LAD. {L1} XB3 Guide catheter was inserted and engaged into the LCA. The FFR/iFR wire was inserted. Pressures and FFR/iFR were then recorded. iFR measurements were performed. iFR Ratio: 0.91 iFR Ratio: 0.91 iFR measurements were performed. iFR Ratio: 0.76 The FFR/iFR wire was left in place as guide wire. Angiogram performed pre balloon dilatation. LEONA FRONTIER 2.25 X 18 Drug Eluting stent was inserted. Drug Eluting stent was advanced across the lesion in the LAD, mid. Angiogram performed post stent deployment. The FFR/iFR wire was then removed. The arterial sheath was pulled and a TR Band was applied for hemostasis 9 ML OF AIR INTERVENTION INFORMATION LESION SITE: LAD (Ostial) Lesion Devices: [employer] 6 Fr XB3.0 100cm Guide Catheter [employer] (volcano) Coronary FFR Wire LESION SITE: LAD (Mid) Lesion Complexity: High/C, chronic total occlusion: No, lesion at bifurcation: No, thrombus present: No, lesion length: 15 mm, culprit lesion: Yes, Previously treated lesion: No Pre Stenosis: 80 % Pre intervention JAMIL flow: 3 PROCEDURE: Drug Eluting Stent Post Stenosis: 0 % Post intervention JAMIL flow: 3 Lesion Devices: Anturis 2.25 x 18 LEONA FRONTIER DASIA COMPLICATIONS No Complications PROCEDURE MEDICATIONS Fentanyl 50 mcg IV Fentanyl 1 mcg IV Versed 1 mg IV Oxygen: 2 L/min via nasal cannula Brilinta 180 mg PO @ 08/08/2023 13:14:42 Heparin given IA 08/08/2023 12:14:03 Heparin 4000 unit(s) IV 08/08/2023 12:54:16 Heparin 1000 unit(s) IV 08/08/2023 13:17:55 Verapamil 2.5mg, Ntg 100mcgs, 3000 units of Heparin given IA 08/08/2023 12:14:03 SUMMARY OF HEMODYNAMIC DATA Time AIR REST ECG 10:58:39 AO 106/67 (85) SA 12:19:54 LV 102/3, 14 12:31:42 LV 106/4, 19 12:31:52 LV 108/5, 17 12:32:24 LVp 108/3, 14 12:32:33 AOp 104/55 (78) 12:32:38 AO 133/73 (97) 13:01:09 Signed By Esther Arias MD On 08/09/2023 09:12:14 Esther Arias MD
--- NOTE | 2023-08-09 09:49 | PCM.DC ---
Discharge Instructions Diet Discharge Diet: Low fat / Low cholesterol Activity Discharge Activity: Return to Normal Activity (10 lb lifting limit for 10 days) Return to work on:: 08/14/23 Weight Bearing Status: Full weight bearing Follow Up Care Test Results: Test results from this visit will be discussed in further detail at your follow-up appointment, if applicable. Discharge Plan Admission Admit Date/Time: 08/08/23 14:19 Primary Reason for Your Visit: CAD with PCI Attending Provider: Chidi Jacobsen Primary Care Provider: Romy Woods Consulting Providers: Ellen Gillespie Discharge Orders/Prescriptions Prescriptions: New Brilinta 90 mg Tablet 90 mg PO BID Qty: 60 0RF Continued Taltz Syringe 80 mg/mL syringe 80 mg subcut Q4W Patient Comments: Due next week per patient prednisone 1 mg tablet 1 mg PO DAILY PRN (Reason: RA FLARE UP ) Rx Instructions: 1 tab po prn for 3-5 methotrexate sodium 10 mg tablet 20 mg PO QWEEK Patient Comments: Will take 08/09/23 at 9pm folic acid 1 mg tablet 2 mg PO DAILY aspirin [Adult Low Dose Aspirin] 81 mg tablet,delayed release (DR/EC) 81 mg PO DAILY omega 4-qug-qzq-fish oil [Fish Oil] 1,200 (144-216) mg capsule 1 cap PO DAILY Complex B-100 Tablet Extended Release 1 tab PO DAILY cholecalciferol (vitamin D3) [D3-2000] 50 mcg (2,000 unit) capsule 50 mcg PO DAILY Probiotic 10 billion cell capsule 100 mmu cells PO DAILY elderberry fruit 200 mg capsule 200 mg PO DAILY metoprolol tartrate 25 mg tablet 25 mg PO BID Qty: 180 3RF Brilinta 90 mg tablet 90 mg PO BID Qty: 60 11RF atorvastatin 40 mg tablet 40 mg PO QHS Qty: 30 11RF No Action metformin 500 mg tablet extended release 24 hr 500 mg PO DAILY Qty: 90 3RF Referrals / Follow Up: Romy Woods MD [Primary Care Provider] - Ellen Gillespie PA [Med Staff - [facility]] - In 1 Week Disposition Disposition (needs filled in before D/C Order can be placed): Home, Self Care
--- NOTE | 2023-08-09 10:00 | EKG12_ITS ---
Test Reason : AM EKG Blood Pressure : / mmHG Vent. Rate : 067 BPM Atrial Rate : 067 BPM P-R Int : 184 ms QRS Dur : 090 ms QT Int : 406 ms P-R-T Axes : 064 055 045 degrees QTc Int : 429 ms Normal sinus rhythm Normal ECG When compared with ECG of 08-AUG-2023 14:40, MANUAL COMPARISON REQUIRED, DATA IS UNCONFIRMED Confirmed by KASH JOYCE, CHIDI ([id number]), assistant film editor GRICELDA KIRK ([id number]) on 08/11/2023 11:26:51 AM Referred By: Chidi Jacobsen Confirmed By:CHIDI JACOBSEN MD
[2023-08-09 11:16] VITALS: BP 117/75; PULSE 74; RESP 18; TEMP 36.6; O2SAT 95
--- NOTE | 2023-08-09 11:23 | CASEMGMT ---
MELISSA CM reviewed DC medications. Pt was initiated on Brilinta. Gastroenterologist provided pt with Brilinta co-pay card. Maria Eugenia CABRERA, RN, CCM
--- NOTE | 2023-08-09 14:30 | EKG12_ITS ---
Test Reason : PCI Blood Pressure : / mmHG Vent. Rate : 059 BPM Atrial Rate : 059 BPM P-R Int : 190 ms QRS Dur : 092 ms QT Int : 406 ms P-R-T Axes : 029 045 028 degrees QTc Int : 401 ms Sinus bradycardia Increased R/S ratio in V1, consider early transition or posterior infarct Abnormal ECG No previous ECGs available Confirmed by KASH JOYCE, CHIDI ([id number]), editor index GRICELDA KIRK ([id number]) on 08/11/2023 11:27:00 AM Referred By: Chidi Jacobsen Confirmed By:CHIDI JACOBSEN MD
== END 2023-08-09 09:56 | disposition home or self-care (01) ==
LOC: PCU 14:29
PROVIDERS: Specialist; Admitting Provider Internal Medicine Cardiovascular Disease; PCP Internal Medicine; Referring Provider Internal Medicine Cardiovascular Disease; Visit Provider Internal Medicine Cardiovascular Disease
DX: I25.118 Atherosclerotic heart disease of native coronary artery with other forms of angina pectoris (principal); L40.50 Arthropathic psoriasis, unspecified; E11.9 Type 2 diabetes mellitus without complications; I10 Essential (primary) hypertension; R94.39 Abnormal result of other cardiovascular function study; Z79.899 Other long term (current) drug therapy; Z79.84 Long term (current) use of oral hypoglycemic drugs
CPT/HCPCS: 36415; 80053; 85027; 85347; 92928; 93005; 93458; 93571; 96360; 96361; 99152; 99153; 99221; J7030; J7040; Q9967; C1769; C1874; C1887; C1894; C9600; G0378; J1327

== ENCOUNTER → 2023-08-20 | Outpatient (CLI) | payer OTHER, SELFPAY ==
--- NOTE | 2023-08-20 08:03 | CR.HP_ITS ---
CR - History & Physical General Arrival date:: 08/20/23 Arrival time:: 08:05 Date of Referral:: 08/11/23 Date of CR Evaluation:: 08/20/23 Referring Physician: Dr. Arias Primary Diagnosis: PCI with coronary stent History of Present Cardiac Event Onset Date PTCA or coronary stenting:: Yes Vessel: 08/09/23 onset Medications Ambulatory Orders Medication Instructions Recorded ixekizumab 80 mg/mL subcutaneous 80 mg subcut Q4W 05/03/21 syringe (Taltz Syringe) folic acid 1 mg tablet 2 mg PO DAILY 07/04/22 methotrexate sodium 10 mg tablet 20 mg PO QWEEK 07/04/22 prednisone 1 mg tablet 1 mg PO DAILY PRN RA FLARE UP 07/04/22 Lactobacillus acidophilus 10 100 mmu cells PO DAILY 03/25/23 billion cell capsule (Probiotic) cholecalciferol (vitamin D3) 50 50 mcg PO DAILY 03/25/23 mcg (2,000 unit) capsule (D3-2000) elderberry fruit 200 mg capsule 200 mg PO DAILY 03/25/23 omega 3-mgi-dvh-fish oil 1,200 mg 1 cap PO DAILY 03/25/23 (144 mg-216 mg) capsule (Fish Oil) vitamin B complex (Complex B-100 1 tab PO DAILY 03/25/23 tablet,extended release) metoprolol tartrate 25 mg tablet 25 mg PO BID #180 tabs 08/01/23 aspirin 81 mg tablet,delayed 81 mg PO DAILY 08/04/23 release (Adult Low Dose Aspirin) metformin 500 mg tablet,extended 500 mg PO DAILY #90 tabs 08/07/23 release 24 hr ticagrelor 90 mg tablet (Brilinta) 90 mg PO BID #60 tabs 08/09/23 atorvastatin 40 mg tablet 40 mg PO QHS #90 tabs 08/14/23 clopidogrel 75 mg tablet (Plavix) 75 mg PO DAILY #90 tabs 08/14/23 Allergies Allergies amoxicillin Allergy (Verified 08/14/23 10:53) unknown erythromycin base Allergy (Verified 08/14/23 10:53) unknown latanoprost [From Xalatan] Allergy (Verified 08/14/23 10:53) unknown Sleep Disorder Evaluation Hx of Sleep Apnea: No Do you snore loudly (louder than talking or can be heard through closed doors)?: No Do you often feel tired/ fatigued/ sleepy during daytime?: No Has anyone observed you stop breathing during sleep?: No History of Hypertension (for STOP score): No STOP Results: Negative Advanced Directives Advanced Directives Power of Chief Internal Auditor: No Living Will: No Advance Directives Information Provided: No Advance Directives on File: No DNR Order?:: No Past Medical History Covid-19 Screening Physicial Symptoms Other Clinical Concerns Exposure Risk Pertinent Comorbidities Has a serious heart condition:: Yes Diabetic:: Yes Past Medical Illness Past Medical History (Updated 08/12/23 @ 00:29 by Background Daemon) Alcohol use Z78.9 OCC, 1 DRINK/ WEEK Arthritis M19.90 COVID-19 U07.1 Diabetes E11.9 Dietary restriction Z71.3 ADA Heartburn R12 OCC History of steroid therapy Z92.241 CHRONIC USE DUE TO PSORIATIC ARTHRITIS Non-smoker Z78.9 Wears glasses Z97.3 Wears partial dentures Z97.2 UPPER Past Surgical History Past Surgical History (Updated 08/12/23 @ 00:29 by Background Daemon) H/O tooth extraction K08.409 Hx of cardiac catheterization (~08/09/23) Z98.890 Hx of eye surgery Z98.890 Stented coronary artery (~08/09/23) Z95.5 Mid LAD- 2.25 x 18 LEONA FRONTIER DASIA Family History Summary Family History Other Cancer Diabetes Heart disease Psoriasis Social History Smoking History Smoking Status: Never smoker Alcohol Use Alcohol Usage: Yes (rare) Occupation Occupation (List type of work in comments):: Employed Hours worked per day:: 8 Returned to work on:: 08/19/23 Hobbies, Recreation, Social Activities Hobbies: Reading and Other Recreational Activities: I am able to engage in all my recreational activities Social Environment Status Marital Status: Current Living Arrangements Living Environment:: Spouse Children How many children do you have?: 4 Do any of your children live nearby?: Yes Safety Do you feel safe in your surroundings?: Yes Assistance Do you need any assistance at home?: no Review of Systems Review of Systems Hints Review of Present Symptoms: Reports Shortness of Breath with Exertion, Dizziness/Lightheadedness, Appetite - Normal, Appetite - Special Diet and Sleep - Normal; Denies Shortness of Breath at Rest, PVD, Operative Discomfort, Angina, Wound Healing, Fatigue, Heart Arrhythmia/Irregularities or Sexual Changes Pain Is Patient Pain Free?: No Pain Location: upper extremity and lower extremity Pain Level: 2/10 Risk Factor Assessment Chief Complaint Chief Complaint: PCI with coronary stent Vital Signs Pulse Ox: 96 Blood Pressure: 106/64 Pulse Pulse Rate: 71 Hypertension Blood Pressure Sitting - Left Arm: 106/64 Stress Stress: Work-related and - (financial ) Diabetes Diabetic History: Type II and Medication Dependent Nutrition Referral for Diabetes: No Obesity Height: 5 ft 6 in Weight:: 195 lb Weight in Pounds: 195.0 lbs Body Mass Index (BMI): 31.4 Nutritional Referral for Obesity: No Physical Inactivity Physical Inactivity: Physically demanding job Risk Stratification Risk Guidelines: Lowest Risk: Risk Factor for Smoking, Risk Factor for Hypertension and Risk Factor for Depression, Moderate Risk: Risk Factor for Dyslipidemia, Risk Factor for Obesity and Risk Factor for Sedentary Lifestyle and Highest Risk: Risk Factor for Diabetes For Smoking Smoking Risk Guidelines For Dyslipidemia Dyslipidemia Risk Guidelines For Diabetes Mellitus Diabetes Risk Guidelines For Obesity/Overweight Obesity/Overweight Risk Guidelines For Hypertension Hypertension Risk Guidelines For Sedentary Lifestyle Sedentary Lifestyle Risk Guidelines For Depression Depression Risk Guidelines Family History Family History Other Cancer Diabetes Heart disease Psoriasis Motivation Motivation to Participate On a scale of 1 to 10, how prepared are you to commit to attending program?: 7 What do you see as barriers to successfully being able to complete the program?: nothing What do you see as the benefits of succesfully completing the program? In other words, what do you hope to get out of participating in the program?: strength, endurance Are there issues you are dealing with that will interfere with completing the program?: no Do you have a spouse or signficant other, family or friends who will help support you to complete the program?: yes
[2023-08-20 08:11] VITALS: O2SAT 96
--- NOTE | 2023-08-20 08:11 | PCM.CR.ITP ---
Diagnosis General Information Admitting Diagnosis: PCI with coronary stent Personal Learning Style:: Audio/Visual Stage of change r/t lifestyle modifications:: Contemplation Gave educational material for:: Treating Heart Disease, How The Heart Works, What it means to have Heart Disease, How Coronary Artery Disease is Diagnosed, Heart Procedures, What Heart Medications Do, Risk Factors & Modifications, Living an Active Life, Nutrition, Emotions & Heart Disease, Stress Management & Relaxation and Sleep Disorders & Heart Disease Education/Goals Cardiac Rehabilitation Goals Personal Goals: Initial Assessment: Improve management of stress and emotions, Improve energy level, Participate in home exercise program, Get back to work, or to resume activities faster, Improve knowledge of cardiac disease, Improve muscle strength and endurance, Improve diet and eating habits (eat healthier) and Control risk factors (learn risk factor modification) Scale for measuring improvement of personal goals Diagnosis & Disease Process Outcomes/Goals: Pt IDs own risk factors & lifestyle modifications by Session 10, Verbalizes symptoms of angina & response by session 3., Pt independently manages and Other Additional Outcomes/Goals: Plan/Interventions: Assist Pt to ID & engage in lifestyle modification to reduce CVD risk, Instruct on individual risk factors, Review symptoms of angina & emergency actions, Review secondary diagnosis & identify educational needs. and Other see comment 30 day Reassessments:: Not Met 30 day Reassessments:: Not Met 30 day Reassessments:: Not Met 30 day Reassessments:: Not Met Final Reassessments:: Not Met Safety Referral to Physical Therapy: No Referral to [facility] Case Management: No Fall Risk Assessed:: Yes Assistive Devices:: None Exercise - Initial Assessment Visit Date of Eval: 08/20/23 (initial eval) Mets: Pre-: >3 METS for 30 minutes by discharge, >5 METS for 30 minutes by discharge, >7 METS for 30 minutes by discharge and Unable to meet goal due to: (see comment below) Physician Prescribed Exercise Modalities: Treadmill, Rower, Airdyne, NuStep, SciFit and Lateral [place] Frequency: 2x/week for 18 weeks [36 sessions] and 3x/week for 12 weeks [36 sessions] Intensity: 60-80% of age predicted maximum heart rate reserve Duration: 30 - 45 minutes Current METSs:: 3 Target Heart Rate:: 104-120 Maximum Exercise Blood Pressure: 106/64 EKG Type: SB Outcomes & Goals Goals:: Verbalizes understanding of THR, RPE & goal METS by session 6, Documents in home exercise log/reports 30 min aerobic 5 day/wk by DC, Demonstrates accurate pulse taking by DC and Other additional outcome/goals: see below Intervention & Plan Exercise Program Goals: Instruct on personal THR & RPE, Instruct on MET level & personal MET goal, Show patient to take own pulse /validate performance until accurate, Instruct on home exercise and Other additional plan/int Physical Activity Home Exercise Physical Activity - Home Exercise: Safe Exercise, Warm-up, Self-monitoring, Cool-Down, Home Exercise > 30 min Daily and Sitting Time <3 hours/daily Outcomes & Goals Outcomes/Goals: Demonstrates correct Warm-up/exercise Cool-Down (S3) if = 2.5 METs, Verbalizes symptoms of exercise intolerance by Session 3 (S3), Demonstrate safe equipment use (S3) & follows exercise prescrition (6) and Other: See below Intervention & Plan Plan/Intervention: Instruct warm-up & cool-down if exercising at > 2 METs, Instruct on symptoms of exercise intolerance & actions to take, Instruct & monitor on saf, Assess intial functional capacity & safety risk and Other See below Nutrition - Initial Assessment Program Goals Nutrition Program Goals Patient has diagnosis of Hyperlipidemia (ICD E78)?: No Visit Date of Eval: 08/20/23 (initial eval ) Cholesterol/Lipids (Other Core Measures) Determine presence & major risk factors that modify LDL goal: Cigarette smoking, Hypertension or hypertensive medication, Low HDL cholesterol <40 mg/dL*, Family history of premature CHD in Male < 55 years: female <65 yearsFa and Age men > 45 years; women >/= 55 years Outcomes/Goals: Pt IDs own risk factors & lifestyle modifications by Session 10, Verbalizes symptoms of angina & response by session 3., Pt independently manages and Other Additional Outcomes/Goals: Intervention/Plan: Advocate for lipid panel cholesterol medication if applicable, Instruct on personal lipid levels & lipid goals/NCEP guidelines, Instruct on cholesterol and Other additional plan/int Referral to dietitian:: No Diabetes (Other Core Measures) Diabetes Type: Diagnosis Type II ICD-10 E11 Insulin dependent injection/pump?: No Non-Insulin Dependent?: Yes Referral to Diabetic Clinic:: No Outcomes/Goals:: Able to state symptoms of, Able to state, Able to state and Other additional Intervention/Plan:: Instruct on, Refer to, Instruct on and Other Weight Mgt (Other Care) Height: 5 ft 6 in Weight:: 195 lb BMI: 31.4 Diagnosis Overweight/Obesity BMI> 30% ICD-10 E66: Yes Diagnosis High BMI/Morbid Obesity BMI> 35% ICD-10 Z68: No Outcomes/Goals: Pt sets, maintains & shows weight loss goal & trend during rehab and Other additional outcomes/goals Intervention/Plan: Instruct on ideal BMI & set weight loss goal w/patient, Assist pt to ID & incorporate diet changes for weight loss by S9, Refer to Structured Weight Loss program as appropriate, Encourage goal of using 250-300dcal per session for weight loss and Other additional plan/interventions Healthy Eating Habits Will attend diet classes:: Yes Outcomes/Goals:: Consume diet rich in vegs,fruits,whole grain/high fiber,fish,lean meat, Limit sat/trans fats,cholesterol & added salts & sugars and Other additional outcome/goals: Intervention/Plan:: Assess current eating habits and Other Additional plan/interventions Education Gave educational materials for:: Signs & symptoms of hypoglycemia, Signs & symptoms of hyperglycemia, Relate diabetes to coronary artery disease and Healthy eating Core - Initial Assessment Visit Date of Eval: 08/20/23 (initial eval ) Medication Compliance Preventative Medication(s):: Aspirin, Ticagrelor/P2Y12 inhibitor, Statin/lipid and Beta yandel H/O mental health issues: depression, anxiety, or addiction?: No Doesn?t believe in the benefits of treatment?: No Believes medications are unnecessary or harmful?: No Has a concern about medication side effects?: No Expresses concern over the cost of medications?: No Outcomes/Goals: Verbalizes medications,desired effect & common side effects @ DC, Pt self-reports following medication regimen, Keeps card in wallet w/medications listed by DC and Other additional outcome/goals: Interventions/plans: Instruct on medication effects & side effects, Review medication list w/patient every two weeks, Instruct importance of taking meds as ordered & assist problem solving and Other additional Tobacco Use Tobacco Use: Non-smoker Hypertension Hypertension Diagnosis:: Not Applicable Resting Blood Pressure:: 106/64 [place] [employer] Hypertension Guidelines Outcomes/Goals: Able to verbalize/achieve optimal blood pressure <130/80, Incorporates diet changes & exercise for blood pressure control by DC and Other additional outcomes/goals Interventions/plan: Instruct on optimal blood pressure, hypertension & medications, Instruct on effects of sodium, alcohol, stress, exercise &hypertension and Other additional plan/interventions Tobacco Cessation Referral Smoking Cessation Referral:: No Individual Education/Counseling:: No Education Schedule Given:: Yes Psychosocial - Initial Assess VIsit Date of Eval: 08/20/23 (initial eval ) History of previous Mental disease:: No Target Goals Target Goals Outcomes/Goals: See list Psychosocial Outcomes/Goals:: ID's personal stressors & 2 strategies to manage stress by discharge and Other Additional outcome/goals: Intervention/Plan: See List Interventions/Plan:: Assess stressors,coping strategies & signs of derpression on admission, Instruct/assist pt to develop coping & personal stress Mgt strategies, Refer to Behavioral Health if appropriate, Refer to Physician if appropriate, Instruct patient to recognize signs & symptoms of depression, Instruct patient to recog and Other additional plan/intervention Patient Health Questionnaire PHQ-9 Screening Initial Assessment: 1. Little interest or pleasure in doing things: Several days 2. Feeling down, depressed, or hopeless: Not at all 3. Trouble falling or staying asleep, or sleeping too much: Not at all 4. Feeling tired or having little energy: Several days 5. Poor appetite or overeating: Not at all 6. Feeling bad about yourself -- or that you are a failure or have let yourself or your family down: Not at all 7. Trouble concentrating on things, such as reading the newspaper or watching television: Not at all 8. Moving or speaking so slowly that other people could have noticed. Or the opposite - being so fidgety or restless that you have been moving around a lot more than usual: Not at all 9. Thoughts that you would be better off , or of hurting yourself in some way: Not at all How difficult have these problems made it for you to do your work, take care of things at home, or get along with other people?: Not difficult at all Total Score: 2 DAFNE-Q SV Test Statements CAD is a disease of the arteries in the heart: False Examples of risk factors for heart disease: True Angina is chest pain or discomfort: True The benefits of resistance training include: True Eating more meat and dairy products: False Anti-platelet medications such as aspirin are important: True The only effective way to manage stress: False An exercise warm-up slowly increases heart rate: True Prepared, processed foods usually have high sodium: True Depression is common after a heart attack: I Don't Know The statin medications lower cholesterol: True To control blood pressure, lower the amount of sodium: True If someone gets chest discomfort during walking: False Transfats are partially hydrogenated vegetable oils: True Sleep apnea that is not treated increases the risk: False To control cholesterol, one should become a vegetarian: False Someone knows if he/she is exercising at the right level: True Diabetes cannot be prevented with exercise & health eating: False Stress is a large risk for heart attack: True A diet that can help lower blood pressure is rich in: True Total Score Total Correct Responses: 19 Self-Efficacy 6-Item Scale Initial Assessment: We would like to know how confident you are in doing certain activities. Please select your confidence level for: Fatigue Select Number: 6 Physical Discomfort or Pain Select Number: 5 Emotional Distress Select Number: 8 Other Symptoms or Health Problems Select Number: 4 Different Tasks and Activities Select Number: 7 Medication Select Number: 8 Total Score:: 6 Nutrition Survey Nutrition Survey Instructions Scoring Instructions Nutrition Survey Initial: Have you lost >10 lbs over the past 2 months without trying?: No Are you following a special diet at home for diabetes, low fat, or low salt?: No Are you interested in meeting with a dietitian for help understanding your diet?: No Do you eat less than 3 meals a day?: No Do you eat fatty meats (valladares, sausage, ribs, etc), fried foods, desserts, large amounts of salad dressings, margarine, butter, or cheese most days?: No Do you have food allergies? [Enter types in comment field]: No Do you eat in restaurants more than 3 times a week?: No Do you season food with salt, seasoning salt, or garlic salt?: No Do you used canned, boxed, frozen meals, or soups, seasoning packets?: Yes Total Score:: 1 Exercise - Final/Discharge Physician Prescribed Exercise Modalities: Treadmill, Rower, Airdyne, NuStep, SciFit and Lateral [place] Frequency: 2x/week for 18 weeks [36 sessions] and 3x/week for 12 weeks [36 sessions] Intensity: 60-80% of age predicted maximum heart rate reserve Current METSs:: 3 Target Heart Rate:: 104-120 Nutrition - 30-Day Assessment Weight Mgt (Other Care) Height: 5 ft 6 in Weight:: 195 lb BMI: 31.4 Nutrition - 60-Day Assessment Weight Mgt (Other Care) Height: 5 ft 6 in Weight:: 195 lb BMI: 31.4 Core - Final Assessment Hypertension Resting Blood Pressure:: 106/64 [place] [employer] Hypertension Guidelines Core - 60-Day Assessment Hypertension Resting Blood Pressure:: 106/64 [place] [employer] Hypertension Guidelines Psychosocial - 30-Day Assess Target Goals Target Goals Psychosocial - 60-Day Assess Target Goals Target Goals Psychosocial - 90-Day Assess Target Goals Target Goals Psychosocial - Final Assessmen Target Goals Target Goals Nutrition - 90-Day Assessment Weight Mgt (Other Care) Height: 5 ft 6 in Weight:: 195 lb BMI: 31.4 Nutrition - Final Assessment Program Goals Patient has diagnosis of Hyperlipidemia (ICD E78)?: No Weight Mgt (Other Care) Height: 5 ft 6 in Weight:: 195 lb BMI: 31.4
[2023-08-20 08:32] VITALS: BMI 31.4
[2023-08-20 08:44] VITALS: PULSE 71
[2023-08-20 08:47] VITALS: BP 106/64
[2023-08-20 09:15] VITALS: BP 106/64; BMI 31.4
== END | disposition home or self-care (01) ==
LOC: CR 07:59
PROVIDERS: PCP Internal Medicine; Referring Provider Specialist; Visit Provider Specialist
DX: Z95.5 Presence of coronary angioplasty implant and graft (principal)

== ENCOUNTER 2023-08-25 11:15 | Outpatient (RCR) | payer OTHER, SELFPAY ==
[2023-08-20 09:15] VITALS: BMI 31.4
== END 2023-08-26 23:59 ==
LOC: CR 11:15
PROVIDERS: PCP Internal Medicine; Referring Provider Specialist; Visit Provider Specialist
DX: R94.39 Abnormal result of other cardiovascular function study (principal); I25.10 Atherosclerotic heart disease of native coronary artery without angina pectoris; Z95.5 Presence of coronary angioplasty implant and graft
CPT/HCPCS: 93798

== ENCOUNTER 2023-09-26 11:15 | Outpatient (RCR) | payer OTHER, SELFPAY ==
[2023-08-20 09:15] VITALS: BMI 31.4
--- NOTE | 2023-09-19 08:21 | PCM.CR.ITP ---
Exercise - Initial Assessment Visit Session #:: 12 Physician Prescribed Exercise Modalities: Treadmill, Schwinn Airdyne AD-7 and SciFit Stepper Nutrition - Initial Assessment Weight Mgt (Other Care) Height: 5 ft 6 in Weight:: 190 lb BMI: 30.7 Psychosocial - Initial Assess Target Goals Target Goals Patient Health Questionnaire PHQ-9 Screening 30-Day Re-eval Assessment: 1. Little interest or pleasure in doing things: Several days 2. Feeling down, depressed, or hopeless: Not at all 3. Trouble falling or staying asleep, or sleeping too much: Not at all 4. Feeling tired or having little energy: Several days 5. Poor appetite or overeating: Not at all 6. Feeling bad about yourself -- or that you are a failure or have let yourself or your family down: Not at all 7. Trouble concentrating on things, such as reading the newspaper or watching television: Not at all 8. Moving or speaking so slowly that other people could have noticed. Or the opposite - being so fidgety or restless that you have been moving around a lot more than usual: Not at all 9. Thoughts that you would be better off , or of hurting yourself in some way: Not at all How difficult have these problems made it for you to do your work, take care of things at home, or get along with other people?: Not difficult at all Total Score: 2 Self-Efficacy 6-Item Scale 30-Day Re-eval Assessment: We would like to know how confident you are in doing certain activities. Please select your confidence level for: Fatigue Select Number: 6 Physical Discomfort or Pain Select Number: 5 Emotional Distress Select Number: 8 Other Symptoms or Health Problems Select Number: 4 Different Tasks and Activities Select Number: 7 Medication Select Number: 8 Total Score:: 6 Nutrition Survey Nutrition Survey Instructions Scoring Instructions Exercise - 30-day Assessment Visit Date of Eval: 09/19/23 Session #:: 12 Physician Prescribed Exercise Modalities: Treadmill, Schwinn Airdyne AD-7 and SciFit Stepper Frequency: 3x/week for 12 weeks [36 sessions] Intensity: 60-80% of age predicted maximum heart rate reserve Duration: 30 - 45 minutes Current METSs:: 4.5 Target Heart Rate:: 104-120 Current RPE:: 12-13 Maximum Excercise HR:: 106 Resting Blood Pressure: 118/68 Maximum Exercise Blood Pressure: 132/84 EKG Type: NSR to ST with a rare pac,pvc Outcomes & Goals Goals:: Verbalizes understanding of THR, RPE & goal METS by session 6, Documents in home exercise log/reports 30 min aerobic 5 day/wk by DC, Demonstrates accurate pulse taking by DC and Other additional outcome/goals: see below Intervention & Plan Exercise Program Goals: Instruct on personal THR & RPE, Instruct on MET level & personal MET goal, Show patient to take own pulse /validate performance until accurate, Instruct on home exercise and Other additional plan/int 30-day Reassessments 30 day Reassessments:: Progressing Reassessment Notes & Comments:: RPE explained Physical Activity Home Exercise Physical Activity - Home Exercise: Safe Exercise, Warm-up, Self-monitoring, Cool-Down, Home Exercise > 30 min Daily and Sitting Time <3 hours/daily Outcomes & Goals Outcomes/Goals: Demonstrates correct Warm-up/exercise Cool-Down (S3) if = 2.5 METs, Verbalizes symptoms of exercise intolerance by Session 3 (S3), Demonstrate safe equipment use (S3) & follows exercise prescrition (6) and Other: See below Intervention & Plan Plan/Intervention: Instruct warm-up & cool-down if exercising at > 2 METs, Instruct on symptoms of exercise intolerance & actions to take, Instruct & monitor on saf, Assess intial functional capacity & safety risk and Other See below 30-day Reassessments 30 day Reassessments:: Progressing Reassessment Notes & Comments:: warm up encouraged Exercise - 60-day Assessment Physician Prescribed Exercise Modalities: Treadmill, Schwinn Airdyne AD-7 and SciFit Stepper Exercise - 90-day Assessment Physician Prescribed Exercise Modalities: Treadmill, Schwinn Airdyne AD-7 and SciFit Stepper Exercise - Final/Discharge Physician Prescribed Exercise Modalities: Treadmill, Schwinn Airdyne AD-7 and SciFit Stepper Nutrition - 30-Day Assessment Program Goals Nutrition Program Goals Patient has diagnosis of Hyperlipidemia (ICD E78)?: No Visit Date of Eval: 09/19/23 Session #:: 12 Cholesterol/Lipids (Other Core Measures) Determine presence & major risk factors that modify LDL goal: Cigarette smoking, Hypertension or hypertensive medication, Low HDL cholesterol <40 mg/dL*, Family history of premature CHD in Male < 55 years: female <65 yearsFa and Age men > 45 years; women >/= 55 years Outcomes/Goals: Pt IDs own risk factors & lifestyle modifications by Session 10, Verbalizes symptoms of angina & response by session 3., Pt independently manages and Other Additional Outcomes/Goals: Intervention/Plan: Advocate for lipid panel cholesterol medication if applicable, Instruct on personal lipid levels & lipid goals/NCEP guidelines, Instruct on cholesterol and Other additional plan/int Referral to dietitian:: No 30-day Reassessments:: Progressing Reassessment Notes & Comments:: pt to attend nutrition class Diabetes (Other Core Measures) Diabetes Type: Diagnosis Type II ICD-10 E11 Insulin dependent injection/pump?: No Non-Insulin Dependent?: Yes Referral to Diabetic Clinic:: No Outcomes/Goals:: Able to state symptoms of, Able to state, Able to state and Other additional Intervention/Plan:: Instruct on, Refer to, Instruct on and Other 30-day Reassessments:: Met Weight Mgt (Other Care) Height: 5 ft 6 in Weight:: 190 lb BMI: 30.7 Diagnosis Overweight/Obesity BMI> 30% ICD-10 E66: Yes Diagnosis High BMI/Morbid Obesity BMI> 35% ICD-10 Z68: No Outcomes/Goals: Pt sets, maintains & shows weight loss goal & trend during rehab and Other additional outcomes/goals Intervention/Plan: Instruct on ideal BMI & set weight loss goal w/patient, Assist pt to ID & incorporate diet changes for weight loss by S9, Refer to Structured Weight Loss program as appropriate, Encourage goal of using 250-300dcal per session for weight loss and Other additional plan/interventions 30 day Reassessments:: Progressing Reassessment Notes & Comments:: pt to attend nutrition class Healthy Eating Habits Will attend diet classes:: Yes Outcomes/Goals:: Consume diet rich in vegs,fruits,whole grain/high fiber,fish,lean meat, Limit sat/trans fats,cholesterol & added salts & sugars and Other additional outcome/goals: Intervention/Plan:: Assess current eating habits and Other Additional plan/interventions 30-day Reassessments:: Progressing Reassessment Notes & Comments:: pt to attend nutrition class Education Gave educational materials for:: Signs & symptoms of hypoglycemia, Signs & symptoms of hyperglycemia, Relate diabetes to coronary artery disease and Healthy eating Nutrition - 60-Day Assessment Weight Mgt (Other Care) Height: 5 ft 6 in Weight:: 190 lb BMI: 30.7 Core - 30-Day Assessment Visit Date of Eval: 09/19/23 Session #:: 12 Medication Compliance Preventative Medication(s):: Aspirin, Ticagrelor/P2Y12 inhibitor, Statin/lipid and Beta yandel H/O mental health issues: depression, anxiety, or addiction?: No Doesn?t believe in the benefits of treatment?: No Believes medications are unnecessary or harmful?: No Has a concern about medication side effects?: No Expresses concern over the cost of medications?: No Outcomes/Goals: Verbalizes medications,desired effect & common side effects @ DC, Pt self-reports following medication regimen, Keeps card in wallet w/medications listed by DC and Other additional outcome/goals: Interventions/plans: Instruct on medication effects & side effects, Review medication list w/patient every two weeks, Instruct importance of taking meds as ordered & assist problem solving and Other additional 30-day Reassessments:: Met Reassessment Notes & Comments:: bp' are within normal limits Tobacco Use Tobacco Use: Non-smoker Hypertension Hypertension Diagnosis:: Not Applicable Resting Blood Pressure:: 118/68 [place] [employer] Hypertension Guidelines Peak Exercise Blood Pressure:: 132/84 Outcomes/Goals: Able to verbalize/achieve optimal blood pressure <130/80, Incorporates diet changes & exercise for blood pressure control by DC and Other additional outcomes/goals Interventions/plan: Instruct on optimal blood pressure, hypertension & medications, Instruct on effects of sodium, alcohol, stress, exercise &hypertension and Other additional plan/interventions 30 day Reassessments:: Met Tobacco Cessation Referral Smoking Cessation Referral:: No Individual Education/Counseling:: No Education Schedule Given:: Yes Psychosocial - 30-Day Assess VIsit Date of Eval: 09/19/23 Session #:: 12 History of previous Mental disease:: No Target Goals Target Goals Outcomes/Goals: See list Psychosocial Outcomes/Goals:: ID's personal stressors & 2 strategies to manage stress by discharge and Other Additional outcome/goals: Intervention/Plan: See List Interventions/Plan:: Assess stressors,coping strategies & signs of derpression on admission, Instruct/assist pt to develop coping & personal stress Mgt strategies, Refer to Behavioral Health if appropriate, Refer to Physician if appropriate, Instruct patient to recognize signs & symptoms of depression, Instruct patient to recog and Other additional plan/intervention 30-day Reassessments: 30 day Reassessments:: Met Psychosocial - 60-Day Assess Target Goals Target Goals Outcomes/Goals: See list Psychosocial Outcomes/Goals:: ID's personal stressors & 2 strategies to manage stress by discharge and Other Additional outcome/goals: Psychosocial - 90-Day Assess Target Goals Target Goals Psychosocial - Final Assessmen Target Goals Target Goals Nutrition - 90-Day Assessment Weight Mgt (Other Care) Height: 5 ft 6 in Weight:: 190 lb BMI: 30.7 Nutrition - Final Assessment Weight Mgt (Other Care) Height: 5 ft 6 in Weight:: 190 lb BMI: 30.7
[2023-09-19 08:32] VITALS: BP 118/68; BMI 30.7
== END 2023-09-26 23:59 ==
LOC: CR 11:15
PROVIDERS: PCP Internal Medicine; Referring Provider Specialist; Visit Provider Specialist
DX: R94.39 Abnormal result of other cardiovascular function study (principal); I25.10 Atherosclerotic heart disease of native coronary artery without angina pectoris; Z95.5 Presence of coronary angioplasty implant and graft
CPT/HCPCS: 93798

== ENCOUNTER → 2023-10-01 | Outpatient (CLI) | payer OTHER, SELFPAY ==
[2023-09-19 08:32] VITALS: BMI 30.7
[2023-10-01 09:42] LABS: Absolute Lymphocyte Count 1.61 X10^3/uL (0.83-4.51); Absolute Neutrophil Count 2.6 X10^3/uL (2.0-7.7); Basophil# 0.04 X10^3/uL; Basophil% 0.8 % (0-1); Eosinophil# 0.16 X10^3/uL; Eosinophils% 3.2 % (0-5); Hematocrit 41.8 % (40-54); Hemoglobin 13.6 g/dL (13.0-16.5); Lymphocyte # 1.61 X10^3/ul (0.83-4.51); Mean Corp Hgb Conc 32.5 g/dL (32-36); Mean Corpuscular Hgb 31.1 pg (27.0-32.0); Mean Corpuscular Volume 95.4 fL (80-94); Mean Platelet Vol. 11.3 fl (6.2-12.0); Monocyte# 0.64 X10^3/uL; Monocyte% 12.7 % (0-10); NRBC Flagged by Analyzer 0 % (0-5); Neutrophil # 2.57 X10^3/uL (2.7-7.7); Neutrophil % 51.1 % (47-70); Platelet Count 153 K/mm3 (150-450); RBC Distribution Width CV 13.1 % (11.6-14.6); RBC Distribution Width SD 45.6 fl (35.1-43.9); Red Blood Count 4.38 M/mm3 (4.6-6.2)
[2023-10-01 10:08] LABS: ALB/GLOB Ratio 1.1 RATIO (0.9-2.4); AST(SGOT) 20 U/L (15-37); Alanine Aminotransfer ALT/SGPT 33 U/L (16-61); Albumin, Serum 3.6 g/dL (3.2-5.0); Alkaline Phosphatase 86 U/L (45-117); Anion Gap 5 (5-15); BUN 13 mg/dL (7-18); BUN/Creat Ratio 12.5 RATIO (10-20); Calcium,Total 8.8 mg/dL (8.5-10.1); Chloride 110 mmol/L (98-107); Creatinine, Serum 1.04 mg/dL (0.70-1.30); EST Glomerular Filtration Rate 77 mL/min (>60); Est Glom Filt Rate - Afr Amer 94 mL/min (>60); Globulin 3.2 g/dL (2.2-4.2); Glucose 91 mg/dL (74-106); Potassium 3.8 mmol/L (3.5-5.1); Protein, Total 6.8 g/dL (6.4-8.2); Sodium Level 140 mmol/L (136-145)
== END | disposition home or self-care (01) ==
LOC: LAB 08:37
PROVIDERS: PCP Internal Medicine; Referring Provider Internal Medicine Rheumatology; Visit Provider Internal Medicine Rheumatology
DX: L40.59 Other psoriatic arthropathy (principal); Z79.899 Other long term (current) drug therapy
CPT/HCPCS: 36415; 80053; 85025

== ENCOUNTER 2023-10-24 11:15 | Outpatient (RCR) | payer OTHER, SELFPAY ==
[2023-09-19 08:32] VITALS: BMI 30.7
[2023-09-27 01:15] VITALS: BP 118/68
--- NOTE | 2023-10-20 08:54 | PCM.CR.ITP ---
Exercise - Initial Assessment Physician Prescribed Exercise Modalities: Treadmill, Schwinn Airdyne AD-7 and SciFit Stepper Nutrition - Initial Assessment Weight Mgt (Other Care) Height: 5 ft 6 in Weight:: 188 lb 8 oz BMI: 30.4 Psychosocial - Initial Assess Target Goals Target Goals Referral to Behavioral Health PS - Interventions: Yes: Attend Stress Management Classes and No: Referral to Behavioral Health if PHQ-9 score >9:, No: Referral to [facility] and No: Referral to Physician if PHQ-9 if score is 5-9: Patient Health Questionnaire PHQ-9 Screening 60-Day Re-eval Assessment: 1. Little interest or pleasure in doing things: Not at all 2. Feeling down, depressed, or hopeless: Not at all 3. Trouble falling or staying asleep, or sleeping too much: Not at all 4. Feeling tired or having little energy: Several days 5. Poor appetite or overeating: Not at all 6. Feeling bad about yourself -- or that you are a failure or have let yourself or your family down: Not at all 7. Trouble concentrating on things, such as reading the newspaper or watching television: Not at all 8. Moving or speaking so slowly that other people could have noticed. Or the opposite - being so fidgety or restless that you have been moving around a lot more than usual: Not at all 9. Thoughts that you would be better off , or of hurting yourself in some way: Not at all How difficult have these problems made it for you to do your work, take care of things at home, or get along with other people?: Not difficult at all Total Score: 1 Self-Efficacy 6-Item Scale 60-Day Re-eval Assessment: We would like to know how confident you are in doing certain activities. Please select your confidence level for: Fatigue Select Number: 6 Physical Discomfort or Pain Select Number: 5 Emotional Distress Select Number: 8 Other Symptoms or Health Problems Select Number: 4 Different Tasks and Activities Select Number: 7 Medication Select Number: 8 Total Score:: 6 Nutrition Survey Nutrition Survey Instructions Scoring Instructions Exercise - 30-day Assessment Physician Prescribed Exercise Modalities: Treadmill, Schwinn Airdyne AD-7 and SciFit Stepper Exercise - 60-day Assessment Visit Date of Eval: 10/20/23 Session #:: 23 Physician Prescribed Exercise Modalities: Treadmill, Schwinn Airdyne AD-7 and SciFit Stepper Frequency: 3x/week for 12 weeks [36 sessions] Intensity: 60-80% of age predicted maximum heart rate reserve Duration: 30 - 45 minutes Current METSs:: 6.5 Target Heart Rate:: increased to 120-136 Current RPE:: 11-13 Maximum Excercise HR:: 113 Resting Blood Pressure: 116/62 Maximum Exercise Blood Pressure: 128/70 EKG Type: NSR to sinus tach with rare PVC. Current Physical Activity or Exercising minutes: 38:36 Outcomes & Goals Goals:: Verbalizes understanding of THR, RPE & goal METS by session 6, Documents in home exercise log/reports 30 min aerobic 5 day/wk by DC and Demonstrates accurate pulse taking by DC Intervention & Plan Exercise Program Goals: Instruct on personal THR & RPE, Instruct on MET level & personal MET goal, Show patient to take own pulse /validate performance until accurate and Instruct on home exercise 30-day Reassessments 30 day Reassessments:: Met Physical Activity Home Exercise Physical Activity - Home Exercise: Safe Exercise, Warm-up, Self-monitoring, Cool-Down, Home Exercise > 30 min Daily and Sitting Time <3 hours/daily Outcomes & Goals Outcomes/Goals: Demonstrates correct Warm-up/exercise Cool-Down (S3) if = 2.5 METs, Verbalizes symptoms of exercise intolerance by Session 3 (S3) and Demonstrate safe equipment use (S3) & follows exercise prescrition (6) Intervention & Plan Plan/Intervention: Instruct warm-up & cool-down if exercising at > 2 METs, Instruct on symptoms of exercise intolerance & actions to take, Instruct & monitor on saf and Assess intial functional capacity & safety risk 30-day Reassessments 30 day Reassessments:: Met Exercise - 90-day Assessment Physician Prescribed Exercise Modalities: Treadmill, Schwinn Airdyne AD-7 and SciFit Stepper Exercise - Final/Discharge Physician Prescribed Exercise Modalities: Treadmill, Schwinn Airdyne AD-7 and SciFit Stepper Nutrition - 30-Day Assessment Weight Mgt (Other Care) Height: 5 ft 6 in Weight:: 188 lb 8 oz BMI: 30.4 Nutrition - 60-Day Assessment Program Goals Nutrition Program Goals Patient has diagnosis of Hyperlipidemia (ICD E78)?: Yes Visit Date of Eval: 10/20/23 Session #:: 23 Cholesterol/Lipids (Other Core Measures) Total Triglycerides (mg/dL): 179 Total Cholesterol: 178 LDL Cholesterol (mg/dL): 102 HDL Cholesterol (mg/dL): 40 Determine presence & major risk factors that modify LDL goal: Hypertension or hypertensive medication, Family history of premature CHD in Male < 55 years: female <65 yearsFa and Age men > 45 years; women >/= 55 years Outcomes/Goals: Pt IDs own risk factors & lifestyle modifications by Session 10, Verbalizes symptoms of angina & response by session 3. and Pt independently manages Intervention/Plan: Instruct on personal lipid levels & lipid goals/NCEP guidelines and Instruct on cholesterol Referral to dietitian:: Yes 30-day Reassessments:: Progressing Diabetes (Other Core Measures) Diabetes Type: Diagnosis Type II ICD-10 E11 Fasting blood glucose:: 91 Hgb A1C (4.2 -6.3): 6.1 Insulin dependent injection/pump?: No Non-Insulin Dependent?: Yes Do you monitor your blood sugar at home?: Yes Referral to Diabetic Clinic:: Yes Outcomes/Goals:: Able to state symptoms of, Able to state and Able to state Intervention/Plan:: Instruct on 30-day Reassessments:: Progressing Weight Mgt (Other Care) Height: 5 ft 6 in Weight:: 188 lb 8 oz BMI: 30.4 Diagnosis Overweight/Obesity BMI> 30% ICD-10 E66: Yes Diagnosis High BMI/Morbid Obesity BMI> 35% ICD-10 Z68: No Outcomes/Goals: Pt sets, maintains & shows weight loss goal & trend during rehab Intervention/Plan: Instruct on ideal BMI & set weight loss goal w/patient, Assist pt to ID & incorporate diet changes for weight loss by S9, Refer to Structured Weight Loss program as appropriate and Encourage goal of using 250-300dcal per session for weight loss 30 day Reassessments:: Progressing Healthy Eating Habits Will attend diet classes:: Yes Outcomes/Goals:: Consume diet rich in vegs,fruits,whole grain/high fiber,fish,lean meat and Limit sat/trans fats,cholesterol & added salts & sugars Intervention/Plan:: Assess current eating habits 30-day Reassessments:: Progressing Education Gave educational materials for:: Signs & symptoms of hypoglycemia, Signs & symptoms of hyperglycemia, Relate diabetes to coronary artery disease and Healthy eating Core - 60-Day Assessment Visit Date of Eval: 10/20/23 Session #:: 23 Medication Compliance Preventative Medication(s):: Aspirin, Ticagrelor/P2Y12 inhibitor, Statin/lipid and Beta yandel H/O mental health issues: depression, anxiety, or addiction?: No Doesn?t believe in the benefits of treatment?: No Believes medications are unnecessary or harmful?: No Has a concern about medication side effects?: No Expresses concern over the cost of medications?: No Outcomes/Goals: Verbalizes medications,desired effect & common side effects @ DC, Pt self-reports following medication regimen and Keeps card in wallet w/medications listed by DC Interventions/plans: Instruct on medication effects & side effects, Review medication list w/patient every two weeks and Instruct importance of taking meds as ordered & assist problem solving 30-day Reassessments:: Met Tobacco Use Tobacco Use: Non-smoker Hypertension Hypertension Diagnosis:: Hypertension ICD-10 I10 Resting Blood Pressure:: 116/62 [place] [employer] Hypertension Guidelines Peak Exercise Blood Pressure:: 128/70 Outcomes/Goals: Able to verbalize/achieve optimal blood pressure <130/80 and Incorporates diet changes & exercise for blood pressure control by DC Interventions/plan: Instruct on optimal blood pressure, hypertension & medications and Instruct on effects of sodium, alcohol, stress, exercise &hypertension 30 day Reassessments:: Met Tobacco Cessation Referral Smoking Cessation Referral:: No Individual Education/Counseling:: No Education Schedule Given:: Yes Psychosocial - 30-Day Assess Target Goals Target Goals Referral to Behavioral Health PS - Interventions: Yes: Attend Stress Management Classes and No: Referral to Behavioral Health if PHQ-9 score >9:, No: Referral to [facility] and No: Referral to Physician if PHQ-9 if score is 5-9: Outcomes/Goals: See list Psychosocial Outcomes/Goals:: ID's personal stressors & 2 strategies to manage stress by discharge Psychosocial - 60-Day Assess VIsit Date of Eval: 10/20/23 Session #:: 23 Not Applicable: Yes History of previous Mental disease:: No Target Goals Target Goals Psychosocial Test Tool Used:: PHQ-9 Questionnaire phq-9 Severity Referral to Behavioral Health PS - Interventions: Yes: Attend Stress Management Classes and No: Referral to Behavioral Health if PHQ-9 score >9:, No: Referral to [facility] and No: Referral to Physician if PHQ-9 if score is 5-9: Outcomes/Goals: See list Psychosocial Outcomes/Goals:: ID's personal stressors & 2 strategies to manage stress by discharge Intervention/Plan: See List Interventions/Plan:: Instruct/assist pt to develop coping & personal stress Mgt strategies, Instruct patient to recognize signs & symptoms of depression and Instruct patient to recog 30-day Reassessments: 30 day Reassessments:: Met Psychosocial - 90-Day Assess Target Goals Target Goals Referral to Behavioral Health PS - Interventions: Yes: Attend Stress Management Classes and No: Referral to Behavioral Health if PHQ-9 score >9:, No: Referral to [facility] and No: Referral to Physician if PHQ-9 if score is 5-9: Psychosocial - Final Assessmen Target Goals Target Goals Referral to Behavioral Health PS - Interventions: Yes: Attend Stress Management Classes and No: Referral to Behavioral Health if PHQ-9 score >9:, No: Referral to [facility] and No: Referral to Physician if PHQ-9 if score is 5-9: Nutrition - 90-Day Assessment Weight Mgt (Other Care) Height: 5 ft 6 in Weight:: 188 lb 8 oz BMI: 30.4 Nutrition - Final Assessment Weight Mgt (Other Care) Height: 5 ft 6 in Weight:: 188 lb 8 oz BMI: 30.4
[2023-10-20 09:04] VITALS: BP 116/62
[2023-10-20 09:17] VITALS: BMI 30.4
[2023-10-20 09:26] VITALS: BP 116/62
== END 2023-10-26 23:59 ==
LOC: CR 11:15
PROVIDERS: PCP Internal Medicine; Referring Provider Specialist; Visit Provider Specialist
DX: R94.39 Abnormal result of other cardiovascular function study (principal); I25.10 Atherosclerotic heart disease of native coronary artery without angina pectoris; Z95.5 Presence of coronary angioplasty implant and graft
CPT/HCPCS: 93798

== ENCOUNTER → 2023-11-13 | Outpatient (CLI) | payer OTHER, SELFPAY ==
[2023-11-13 11:03] VITALS: BMI 30.4
[2023-11-13 12:13] LABS: AST(SGOT) 19 U/L (15-37); Alanine Aminotransfer ALT/SGPT 36 U/L (16-61); Albumin, Serum 3.5 g/dL (3.2-5.0); Alkaline Phosphatase 83 U/L (45-117); Cholesterol 95 mg/dL (200); Globulin 3.4 g/dL (2.2-4.2); High Density Lipoprotein 40 mg/dL; Protein, Total 6.9 g/dL (6.4-8.2); Triglycerides 79 mg/dL; Very Low Density Lipoprotein 16 mg/dL (5-40)
== END | disposition home or self-care (01) ==
PROVIDERS: PCP Internal Medicine; Referring Provider Physician Assistant Medical; Visit Provider Physician Assistant Medical
DX: I25.10 Atherosclerotic heart disease of native coronary artery without angina pectoris (principal); Z95.5 Presence of coronary angioplasty implant and graft
CPT/HCPCS: 36415; 80061; 80076

== ENCOUNTER 2023-11-17 11:30 | Outpatient (RCR) | payer OTHER, SELFPAY ==
[2023-10-27 00:38] VITALS: BP 116/62; BP 118/68; BMI 30.7
== END 2023-11-26 23:59 ==
LOC: CR 11:30
PROVIDERS: PCP Internal Medicine; Referring Provider Specialist; Visit Provider Specialist
DX: R94.39 Abnormal result of other cardiovascular function study (principal); I25.10 Atherosclerotic heart disease of native coronary artery without angina pectoris; Z95.5 Presence of coronary angioplasty implant and graft
CPT/HCPCS: 93798

== ENCOUNTER → 2023-12-30 | Outpatient (CLI) | payer OTHER, SELFPAY ==
[2023-12-30 09:02] VITALS: BMI 30.4
[2023-12-30 09:25] LABS: Absolute Lymphocyte Count 1.44 X10^3/uL (0.83-4.51); Absolute Neutrophil Count 3.2 X10^3/uL (2.0-7.7); Basophil# 0.05 X10^3/uL; Basophil% 0.9 % (0-1); Eosinophil# 0.16 X10^3/uL; Eosinophils% 2.9 % (0-5); Hematocrit 43.1 % (40-54); Hemoglobin 14.1 g/dL (13.0-16.5); Lymphocyte # 1.44 X10^3/ul (0.83-4.51); Lymphocyte % 26.3 % (19-41); Mean Corp Hgb Conc 32.7 g/dL (32-36); Mean Corpuscular Hgb 31.1 pg (27.0-32.0); Mean Corpuscular Volume 94.9 fL (80-94); Monocyte% 10.9 % (0-10); NRBC Flagged by Analyzer 0 % (0-5); Neutrophil # 3.21 X10^3/uL (2.7-7.7); Neutrophil % 58.6 % (47-70); Platelet Count 150 K/mm3 (150-450); RBC Distribution Width CV 13.2 % (11.6-14.6); RBC Distribution Width SD 45.5 fl (35.1-43.9); Red Blood Count 4.54 M/mm3 (4.6-6.2); White Blood Count 5.5 K/mm3 (4.4-11.0)
[2023-12-30 10:33] LABS: ALB/GLOB Ratio 1.1 RATIO (0.9-2.4); AST(SGOT) 16 U/L (15-37); Alanine Aminotransfer ALT/SGPT 35 U/L (16-61); Albumin, Serum 3.4 g/dL (3.2-5.0); Alkaline Phosphatase 87 U/L (45-117); Anion Gap 2 (5-15); BUN 16 mg/dL (7-18); BUN/Creat Ratio 15.8 RATIO (10-20); Chloride 108 mmol/L (98-107); Creatinine, Serum 1.01 mg/dL (0.70-1.30); EST Glomerular Filtration Rate 80 mL/min (>60); Est Glom Filt Rate - Afr Amer 97 mL/min (>60); Globulin 3.1 g/dL (2.2-4.2); Glucose 121 mg/dL (74-106); Potassium 4.3 mmol/L (3.5-5.1); Protein, Total 6.5 g/dL (6.4-8.2); Sodium Level 139 mmol/L (136-145)
== END | disposition home or self-care (01) ==
LOC: LAB 09:05
PROVIDERS: PCP Internal Medicine; Referring Provider Internal Medicine Rheumatology; Visit Provider Internal Medicine Rheumatology
DX: L40.59 Other psoriatic arthropathy (principal); Z79.899 Other long term (current) drug therapy
CPT/HCPCS: 36415; 80053; 85025

== ENCOUNTER → 2024-03-22 | Outpatient (CLI) | payer OTHER, SELFPAY ==
[2023-12-30 09:02] VITALS: BMI 30.4
[2024-03-22 10:45] LABS: Absolute Lymphocyte Count 1.65 X10^3/uL (0.83-4.51); Absolute Neutrophil Count 2.9 X10^3/uL (2.0-7.7); Basophil# 0.04 X10^3/uL; Basophil% 0.7 % (0-1); Eosinophil# 0.16 X10^3/uL; Hematocrit 44.8 % (40-54); Hemoglobin 14.4 g/dL (13.0-16.5); Lymphocyte # 1.65 X10^3/ul (0.83-4.51); Lymphocyte % 30.4 % (19-41); Mean Corp Hgb Conc 32.1 g/dL (32-36); Mean Corpuscular Hgb 30.6 pg (27.0-32.0); Mean Corpuscular Volume 95.3 fL (80-94); Mean Platelet Vol. 11.3 fl (6.2-12.0); Monocyte# 0.68 X10^3/uL; Monocyte% 12.5 % (0-10); NRBC Flagged by Analyzer 0 % (0-5); Neutrophil # 2.87 X10^3/uL (2.7-7.7); Platelet Count 164 K/mm3 (150-450); RBC Distribution Width CV 13.3 % (11.6-14.6); RBC Distribution Width SD 46.3 fl (35.1-43.9); White Blood Count 5.4 K/mm3 (4.4-11.0)
[2024-03-22 11:07] LABS: ALB/GLOB Ratio 1.1 RATIO (0.9-2.4); AST(SGOT) 18 U/L (15-37); Alanine Aminotransfer ALT/SGPT 39 U/L (16-61); Albumin, Serum 3.5 g/dL (3.2-5.0); Alkaline Phosphatase 82 U/L (45-117); Anion Gap 4 (5-15); BUN 14 mg/dL (7-18); BUN/Creat Ratio 14.3 RATIO (10-20); Calcium,Total 8.7 mg/dL (8.5-10.1); Chloride 112 mmol/L (98-107); Creatinine, Serum 0.98 mg/dL (0.70-1.30); EST Glomerular Filtration Rate 83 mL/min (>60); Est Glom Filt Rate - Afr Amer 100 mL/min (>60); Globulin 3.1 g/dL (2.2-4.2); Glucose 118 mg/dL (74-106); Protein, Total 6.6 g/dL (6.4-8.2); Sodium Level 140 mmol/L (136-145)
== END | disposition home or self-care (01) ==
LOC: LAB 08:50
PROVIDERS: PCP Internal Medicine; Referring Provider Internal Medicine Rheumatology; Visit Provider Internal Medicine Rheumatology
DX: L40.59 Other psoriatic arthropathy (principal); Z79.899 Other long term (current) drug therapy
CPT/HCPCS: 36415; 80053; 85025

== ENCOUNTER → 2024-06-11 | Outpatient (CLI) | payer OTHER, SELFPAY ==
[2023-12-30 09:02] VITALS: BMI 30.4
[2024-06-11 12:07] LABS: Absolute Lymphocyte Count 1.94 X10^3/uL (0.83-4.51); Absolute Neutrophil Count 2.8 X10^3/uL (2.0-7.7); Basophil# 0.03 X10^3/uL; Basophil% 0.5 % (0-1); Eosinophil# 0.15 X10^3/uL; Eosinophils% 2.7 % (0-5); Hematocrit 40.4 % (40-54); Hemoglobin 13.1 g/dL (13.0-16.5); Lymphocyte # 1.94 X10^3/ul (0.83-4.51); Lymphocyte % 34.6 % (19-41); Mean Corp Hgb Conc 32.4 g/dL (32-36); Mean Corpuscular Hgb 30.8 pg (27.0-32.0); Mean Corpuscular Volume 95.1 fL (80-94); Mean Platelet Vol. 11.5 fl (6.2-12.0); Monocyte# 0.69 X10^3/uL; Monocyte% 12.3 % (0-10); NRBC Flagged by Analyzer 0 % (0-5); Neutrophil # 2.77 X10^3/uL (2.7-7.7); Neutrophil % 49.5 % (47-70); Platelet Count 128 K/mm3 (150-450); RBC Distribution Width CV 13.7 % (11.6-14.6); RBC Distribution Width SD 46.5 fl (35.1-43.9); Red Blood Count 4.25 M/mm3 (4.6-6.2); White Blood Count 5.6 K/mm3 (4.4-11.0)
[2024-06-11 13:10] LABS: AST(SGOT) 22 U/L (15-37); Alanine Aminotransfer ALT/SGPT 65 U/L (16-61); Albumin, Serum 3.3 g/dL (3.2-5.0); Alkaline Phosphatase 79 U/L (45-117); Anion Gap 6 (5-15); BUN 16 mg/dL (7-18); BUN/Creat Ratio 16.8 RATIO (10-20); Bilirubin, Direct 0.21 mg/dL (0.00-0.30); Calcium,Total 8.5 mg/dL (8.5-10.1); Chloride 110 mmol/L (98-107); Cholesterol 105 mg/dL (200); Creatinine, Serum 0.95 mg/dL (0.70-1.30); EST Glomerular Filtration Rate 85 mL/min (>60); Est Glom Filt Rate - Afr Amer 103 mL/min (>60); Globulin 3.1 g/dL (2.2-4.2); Glucose 120 mg/dL (74-106); High Density Lipoprotein 40 mg/dL; Protein, Total 6.4 g/dL (6.4-8.2); Sodium Level 141 mmol/L (136-145); Triglycerides 114 mg/dL; Very Low Density Lipoprotein 23 mg/dL (5-40)
== END | disposition home or self-care (01) ==
LOC: LAB 11:15
PROVIDERS: Physician Assistant Medical; PCP Internal Medicine; Referring Provider Internal Medicine Rheumatology; Visit Provider Internal Medicine Rheumatology
DX: L40.59 Other psoriatic arthropathy (principal); Z79.899 Other long term (current) drug therapy
CPT/HCPCS: 80048; 80061; 80076; 85025

== ENCOUNTER → 2024-06-21 | Outpatient (CLI) | payer OTHER, SELFPAY ==
[2023-12-30 09:02] VITALS: BMI 30.4
--- NOTE | 2024-06-21 09:02 | US_ITS ---
PROCEDURE: ABDOMEN LIMITED REASON FOR EXAM: Elevated liver function tests. COMPARISON: None FINDINGS: Liver: Grossly normal size and echotexture. The liver measures 15.7 cm. Gallbladder: No stones sludge wall thickening or tenderness. Common bile duct: Normal measuring 4 mm. Pancreas: Obscured by bowel gas. Visualized portions of the right kidney are unremarkable. No right upper quadrant ascites. Incidental note is made of a distended urinary bladder. US/Abdomen Limited IMPRESSION: NORMAL RIGHT UPPER QUADRANT ULTRASOUND. Reading Location: [id number]
--- NOTE | 2024-06-21 10:40 | NURSING ---
this rn informed by nidhi in ultrasound that pt has 2210 cc urine in bladder. pt was able to urinate 300cc. olivier vega, spoke to nurse at Dr Juarez office to inform them. pt aware that we spoke to [facility] and to follow up there with any problems.
[2024-06-21 12:08] LABS: PSA,Total- Diagnostic 1.96 ng/mL (0.0-4.0)
== END | disposition home or self-care (01) ==
PROVIDERS: PCP Internal Medicine; Referring Provider Internal Medicine Rheumatology; Visit Provider Internal Medicine Rheumatology
DX: R94.8 Abnormal results of function studies of other organs and systems (principal); L40.59 Other psoriatic arthropathy; R33.9 Retention of urine, unspecified; Z79.899 Other long term (current) drug therapy
CPT/HCPCS: 36415; 76705; 84153

== ENCOUNTER → 2024-07-03 | Outpatient (CLI) | payer OTHER, SELFPAY ==
[2023-12-30 09:02] VITALS: BMI 30.4
--- NOTE | 2024-07-03 08:54 | US_ITS ---
PROCEDURE: KIDNEY AND BLADDER REASON FOR EXAM: 63-year-old male, known urinary retention, concern for neurogenic bladder. TECHNIQUE: Ultrasound of the kidneys and bladder COMPARISON: Liver ultrasound 06/21/2024. FINDINGS: Normal renal sizes, parenchymal thicknesses, and echotextures. No hydronephrosis or large renal calculi. No cysts or large solid renal masses. Grossly normal bladder contour. No suspicious large bladder wall mass visualized. The urinary bladder wall thickness is normal caliber measuring 3 mm. Small right-sided bladder diverticulum is noted. Significant postvoid residual noted. RIGHT Kidney Size: 10.3 x 5.7 x 5.6 cm Volume: 173 mL Parenchymal Thickness: 19 mm (>14mm is normal) Cortical Thickness (if discernible): (>6mm is normal) LEFT Kidney Size: 11.1 x 4.7 x 5.8 cm Volume: 159 mL Parenchymal Thickness: 16 mm (>14mm is normal) BLADDER: Prevoid volume: 1802 mL Postvoid volume: 1315 mL US/Kidney and Bladder IMPRESSION: 1. Significant postvoid residual noted, compatible with incomplete bladder empt kennedy/bladder outlet obstruction. 2. Normal bilateral kidneys without hydronephrosis. Reading Location: [id number]
== END | disposition home or self-care (01) ==
LOC: US 08:53
PROVIDERS: PCP Internal Medicine; Referring Provider Internal Medicine; Visit Provider Internal Medicine
DX: R33.9 Retention of urine, unspecified (principal)
CPT/HCPCS: 76770

== ENCOUNTER → 2024-07-15 | Outpatient (CLI) | payer OTHER, SELFPAY ==
[2023-12-30 09:02] VITALS: BMI 30.4
[2024-07-15 10:42] LABS: Bacteria 0 SEEN /hpf (None Seen); Mucous, Urine 0 SEEN /hpf (<or=2+); Squamous Epithelial Cells - UA 0 SEEN /hpf (0-5); White Blood Cells 0 SEEN /hpf (0-5)
[2024-07-15 11:13] LABS: Color, Urine Yellow (Yellow); Glucose, Dipstick Normal (Normal); Ketone-Dipstick Negative (Negative); Leukocyte Esterase-Dipstick Negative /ul (Negative); Nitrite-Dipstick Negative (Negative); Occult Blood-Urine Negative /ul (Negative); Protein-Dipstick Negative (Negative); Specific Gravity, Urine 1.015 (1.002-1.030); Urine Bilirubin Dipstick Negative (Negative); Urine Clarity Clear (Clear); Urine Urobilinogen Normal (Normal); Urine pH 6.5 (5.0 - 8.0)
[2024-07-15 11:43] LABS: Hemoglobin A1c 6.6 % (<=5.6)
[2024-07-15 11:51] LABS: ALB/GLOB Ratio 1.5 RATIO (0.9-2.4); AST(SGOT) 26 U/L (<=37); Alanine Aminotransfer ALT/SGPT 30 U/L (<=46); Albumin, Serum 3.9 g/dL (3.4-4.8); Alkaline Phosphatase 85 U/L (40-129); Anion Gap 11 (5-15); BUN 17 mg/dL (4-19); BUN/Creat Ratio 17.6 RATIO (10-20); Carbon Dioxide 21.5 mmol/L (21.0-32.0); Chloride 106 mmol/L (98-108); Creatinine, Serum 0.95 mg/dL (0.70-1.20); EST Glomerular Filtration Rate 91 (>60); Globulin 2.6 g/dL (2.2-4.2); Glucose 100 mg/dL (70-99); Potassium 4.2 mmol/L (3.3-5.1); Protein, Total 6.5 g/dL (5.9-8.4); Sodium Level 138 mmol/L (133-145); Total Bilirubin 0.75 mg/dL (0.00-1.30)
[2024-07-15 13:57] LABS: Red Blood Cells-Urine 0 SEEN /hpf (0-5)
== END | disposition home or self-care (01) ==
LOC: LAB 10:28
PROVIDERS: PCP Internal Medicine; Referring Provider Internal Medicine Rheumatology; Visit Provider Internal Medicine Rheumatology
DX: L40.59 Other psoriatic arthropathy (principal); Z79.899 Other long term (current) drug therapy
CPT/HCPCS: 36415; 80053; 81001; 83036

== ENCOUNTER → 2024-07-16 | Outpatient (CLI) | payer OTHER, SELFPAY ==
[2023-12-30 09:02] VITALS: BMI 30.4
[2024-07-20 18:08] LABS: QNTFERON TB Mitogen Value > 10.00 IU/mL (.); QNTFERON TB Nil Value 0.04 IU/mL (.); QNTFERON TB1+ Ag Value 0.05 IU/mL (.); QNTFERON TB2+ Ag Value 0.01 IU/mL (.); QNTIFERON TB Positive Criteria Negative (Negative)
== END | disposition home or self-care (01) ==
LOC: MTLAB 11:10
PROVIDERS: PCP Internal Medicine; Referring Provider Internal Medicine Rheumatology; Visit Provider Internal Medicine Rheumatology
DX: L40.59 Other psoriatic arthropathy (principal); Z79.899 Other long term (current) drug therapy
CPT/HCPCS: 36415; 86480

== ENCOUNTER 2024-07-27 18:15 | Emergency (ER) | payer OTHER, SELFPAY ==
[2023-12-30 09:02] VITALS: BMI 30.4
[2024-07-27 18:15] VITALS: BP 147/78; PULSE 70; RESP 16; TEMP 36.8; O2SAT 94; BMI 31.1
--- NOTE | 2024-07-27 20:26 | EX.ED.DYSGE1 ---
HPI History of Present Illness Chief Complaint: Complaint Informant: patient Onset/Context/Timing Onset: Today Context: Sudden Onset Timing: Continuous Quality: Red blood Location: Urine Worsened by: Nothing Relieved by: Nothing Narrative Narrative: Patient presents with hematuria that began today. Patient states she had a Sanchez catheter placed by Dr. Chapman this morning. Patient states that when he went to work, his leg bag dropped and pulled on his Sanchez catheter. Patient states that since that time he has had increased bleeding from his catheter. Patient denies any abdominal pain. Patient denies any nausea or vomiting. Patient denies any fevers or chills. [facility] Medical History Urinary retention Diabetes Psoriatic arthritis Coronary artery disease Wears partial dentures Wears glasses Alcohol use History of steroid therapy Dietary restriction Heartburn Non-smoker COVID-19 Diabetes Arthritis Home Medications ?Medication ?Instructions ?Recorded ?Last Taken ?Type ixekizumab 80 mg/mL subcutaneous 80 mg subcut Q4W 05/03/21 Unknown History syringe (Taltz Syringe) folic acid 1 mg tablet 2 mg PO DAILY 07/04/22 Unknown History methotrexate sodium 10 mg tablet 20 mg PO QWEEK 07/04/22 Unknown History prednisone 1 mg tablet 1 mg PO DAILY PRN RA FLARE UP 07/04/22 Unknown History Lactobacillus acidophilus 10 100 mmu cells PO DAILY 03/25/23 Unknown History billion cell capsule (Probiotic) cholecalciferol (vitamin D3) 50 50 mcg PO DAILY 03/25/23 Unknown History mcg (2,000 unit) capsule (D3-2000) elderberry fruit 200 mg capsule 200 mg PO DAILY 03/25/23 Unknown History omega 9-oea-bki-fish oil 1,200 mg 1 cap PO DAILY 03/25/23 Unknown History (144 mg-216 mg) capsule (Fish Oil) vitamin B complex (Complex B-100 1 tab PO DAILY 03/25/23 Unknown History tablet,extended release) metoprolol tartrate 25 mg tablet 25 mg PO BID #180 tabs 08/01/23 08/08/23 Rx aspirin 81 mg tablet,delayed 81 mg PO DAILY 08/04/23 08/08/23 History release (Adult Low Dose Aspirin) atorvastatin 40 mg tablet 40 mg PO QHS #90 tabs 08/14/23 Unknown Rx clopidogrel 75 mg tablet (Plavix) 75 mg PO DAILY #90 tabs 08/14/23 Unknown Rx nitroglycerin 0.4 mg sublingual 0.4 mg sublingual Q5-15M PRN chest 11/13/23 Unknown Rx tablet (Nitrostat) pain #25 tabs metformin 500 mg tablet,extended 500 mg PO DAILY #90 tabs 02/23/24 Unknown Rx release 24 hr magnesium 200 mg tablet 200 mg PO QDAY 05/17/24 Unknown History Allergy/AdvReac Type Severity Reaction Status Date / Time amoxicillin Allergy unknown Verified 07/27/24 18:16 erythromycin base Allergy unknown Verified 07/27/24 18:16 latanoprost (From Xalatan) Allergy unknown Verified 07/27/24 18:16 Family History Other Cancer Diabetes Heart disease Psoriasis Surgical History Hx of cardiac catheterization (~08/09/23) Stented coronary artery (~08/09/23) H/O tooth extraction Hx of eye surgery Social History Smoking Status: Never smoker alcohol intake: current alcohol intake frequency: holidays/special occasions only ROS ROS ED Constitutional Constitutional ED: Denies chills or fever(s) Eyes Eyes: Denies blurry vision or change in vision ENT ENT ED: Denies rhinorrhea or sore throat Cardiovascular Cardiovascular: Denies chest pain or palpitations Respiratory/Chest Respiratory/Chest: Denies cough or dyspnea Gastrointestinal Gastrointestinal: Denies nausea or vomiting Genitourinary Genitourinary ED: Reports hematuria; Denies dysuria Musculoskeletal Musculoskeletal: Denies back pain or neck pain Integumentary Denies abscess or rash Neurologic Neurologic: Denies headache(s) or weakness Allergic/Immunologic Allergic/Immunologic ED: Denies mouth swelling or urticaria EXAM Physical Exam Const Vital Signs: 07/27/24 18:15 07/27/24 22:15 07/27/24 22:48 Temperature 98.2 F 98.2 F Temperature Source Temporal Pulse Rate 70 61 61 Respiratory Rate 16 18 18 Blood Pressure 147/78 H 125/66 H Blood Pressure Mean 101 85 Pulse Ox 94 94 94 Oxygen Delivery Method Room Air Room Air Positive well nourished and well developed General Appearance ED: well developed and NAD HEENT Reports moist mucous membranes Neck supple and no JVD Resp normal respiratory effort and clear to auscultation bilaterally Cardio regular rate and regular rhythm GI non-tender and non-distended Palpation: soft Neuro oriented x3, CN's II-XII intact bilaterally and no sensory deficits noted Sensorium / Orientation: alert Motor Exam: strength 5/5 throughout Psych mental status grossly normal MDM MDM MDM Narrative Medical decision making narrative: Differential diagnosis includes hematuria from Sanchez catheter trauma, urinary tract infection, anemia, and electrolyte abnormality. CBC will be obtained to assess for leukocytosis and anemia. Basic metabolic profile will be obtained to assess for electrolyte abnormality and renal function. Urinalysis will be obtained to assess for urinary tract infection and hematuria. Lab Data Attestation: I reviewed the patient's lab results. Lab results narrative: CBC was reviewed and was within normal limits. Basic metabolic profile was reviewed. CO2 was low at 15.6 and gap was elevated at 19. This is most likely laboratory error. Urinalysis was reviewed. Occult blood was 250 with greater than 100 red blood cells. Leukocyte esterase was 500 with 50-100 white blood cells. There is rare bacteria. Labs: Laboratory Results - last 24 hr 07/27/24 07/27/24 20:56 21:12 WBC 10.1 RBC 4.75 Hgb 15.0 Hct 44.1 MCV 92.8 MCH 31.6 MCHC 34.0 RDW Std Deviation 45.4 H RDW Coeff of Renzo 13.6 Plt Count 174 MPV 11.3 Immature Gran % (Auto) 0.600 Neut % (Auto) 69.8 Lymph % (Auto) 18.4 L Isabella % (Auto) 10.3 H Eos % (Auto) 0.5 Baso % (Auto) 0.4 Absolute Neuts (auto) 7.0 Absolute Lymphs (auto) 1.85 Nucleated RBC % 0 Sodium 140 Potassium 4.0 Chloride 106 Carbon Dioxide 15.6 L Anion Gap 19 H BUN 14 Creatinine 0.87 Estim Creat Clear Calc 92.40 Est GFR (MDRD) Non-Af 98 BUN/Creatinine Ratio 16.4 Glucose 91 Calcium 8.8 Urine Color Maria Eugenia Urine Clarity Sl. Cloudy Urine pH 6.5 Ur Specific [place] 1.010 Urine Protein 100 H Urine Glucose (UA) Normal Urine Ketones Negative Urine Occult Blood 250 H Urine Nitrite Negative Urine Bilirubin Negative Urine Urobilinogen Normal Ur Leukocyte Esterase 500 H Urine RBC > 100 SEEN Urine WBC 50-100 SEEN Ur Squamous Epith Cells 0-5 SEEN Ur Renal Epithelial Cell 0-5 SEEN Urine Bacteria RARE Urine Mucus 0 SEEN Treatment and Re-Evaluation :: Patient's Sanchez catheter was irrigated. The irrigation fluid became less bloody and patient was feeling better. Patient was advised of his findings. Patient was advised that if the urine culture did grow any bacteria, we will call him and start him on antibiotics at that time. Patient was instructed to follow-up with Dr. Chapman in 3 to 5 days as scheduled. Patient was instructed return if worse in any way. Patient understood and was agreeable with the plan. All questions were answered. Discharge Plan Triage Chief Complaint: Complaint ED Provider: Marito Bhakta Dx/Rx/DC Orders Clinical Impression: Hematuria, Sanchez catheter in place Instructions: ED Sanchez Catheter, Care, ED Hematuria Prescriptions: No Action Taltz Syringe 80 mg/mL syringe 80 mg subcut Q4W Patient Comments: Due next week per patient prednisone 1 mg tablet 1 mg PO DAILY PRN (Reason: RA FLARE UP ) Rx Instructions: 1 tab po prn for 3-5 methotrexate sodium 10 mg tablet 20 mg PO QWEEK Patient Comments: Will take 08/09/23 at 9pm folic acid 1 mg tablet 2 mg PO DAILY aspirin [Adult Low Dose Aspirin] 81 mg tablet,delayed release (DR/EC) 81 mg PO DAILY clopidogrel [Plavix] 75 mg tablet 75 mg PO DAILY Qty: 90 3RF Rx Instructions: Take 4 pills on the first day, then take it once a day atorvastatin 40 mg tablet 40 mg PO QHS Qty: 90 3RF nitroglycerin [Nitrostat] 0.4 mg tablet, sublingual 0.4 mg sublingual Q5-15M PRN (Reason: chest pain) Qty: 25 3RF Rx Instructions: do not exceed 3 doses per episode magnesium 200 mg tablet 200 mg PO QDAY omega 6-eve-lbz-fish oil [Fish Oil] 1,200 (144-216) mg capsule 1 cap PO DAILY Complex B-100 Tablet Extended Release 1 tab PO DAILY cholecalciferol (vitamin D3) [D3-2000] 50 mcg (2,000 unit) capsule 50 mcg PO DAILY Probiotic 10 billion cell capsule 100 mmu cells PO DAILY elderberry fruit 200 mg capsule 200 mg PO DAILY metoprolol tartrate 25 mg tablet 25 mg PO BID Qty: 180 3RF metformin 500 mg tablet extended release 24 hr 500 mg PO DAILY Qty: 90 3RF Primary Care Provider: Romy Woods Referrals: Billy Chapman MD [Med Staff - Active Staff] - 3-5 Days Romy Woods MD [Primary Care Provider] - 3-5 Days Print Language: Scottish Disposition Disposition: Home, Self Care Discharge Date/Time: 07/27/24 22:53
[2024-07-27 21:09] LABS: Mucous, Urine 0 SEEN /hpf (<or=2+)
[2024-07-27 21:13] LABS: Color, Urine Amber (Yellow); Glucose, Dipstick Normal (Normal); Ketone-Dipstick Negative (Negative); Leukocyte Esterase-Dipstick 500 /ul (Negative); Nitrite-Dipstick Negative (Negative); Occult Blood-Urine 250 /ul (Negative); Protein-Dipstick 100 mg/dl (Negative); Urine Bilirubin Dipstick Negative (Negative); Urine Clarity Sl. Cloudy (Clear); Urine Urobilinogen Normal (Normal); Urine pH 6.5 (5.0 - 8.0)
[2024-07-27 21:26] LABS: Absolute Lymphocyte Count 1.85 X10^3/uL (0.83-4.51); Basophil# 0.04 X10^3/uL; Basophil% 0.4 % (0-1); Eosinophil# 0.05 X10^3/uL; Eosinophils% 0.5 % (0-5); Hematocrit 44.1 % (40-54); Lymphocyte # 1.85 X10^3/ul (0.83-4.51); Lymphocyte % 18.4 % (19-41); Mean Corpuscular Hgb 31.6 pg (27.0-32.0); Mean Corpuscular Volume 92.8 fL (80-94); Mean Platelet Vol. 11.3 fl (6.2-12.0); Monocyte# 1.04 X10^3/uL; Monocyte% 10.3 % (0-10); NRBC Flagged by Analyzer 0 % (0-5); Neutrophil # 7.02 X10^3/uL (2.7-7.7); Neutrophil % 69.8 % (47-70); Platelet Count 174 K/mm3 (150-450); RBC Distribution Width CV 13.6 % (11.6-14.6); RBC Distribution Width SD 45.4 fl (35.1-43.9); Red Blood Count 4.75 M/mm3 (4.6-6.2); White Blood Count 10.1 K/mm3 (4.4-11.0)
[2024-07-27 21:49] LABS: Anion Gap 19 (5-15); BUN 14 mg/dL (4-19); BUN/Creat Ratio 16.4 RATIO (10-20); Calcium,Total 8.8 mg/dL (7.6-11.0); Carbon Dioxide 15.6 mmol/L (21.0-32.0); Chloride 106 mmol/L (98-108); Creatinine, Serum 0.87 mg/dL (0.70-1.20); EST Glomerular Filtration Rate 98 (>60); Glucose 91 mg/dL (70-99); Sodium Level 140 mmol/L (133-145)
[2024-07-27 22:15] VITALS: PULSE 61; RESP 18; O2SAT 94
[2024-07-27 22:25] LABS: Red Blood Cells-Urine > 100 SEEN /hpf (0-5); White Blood Cells 50-100 SEEN /hpf (0-5)
[2024-07-27 22:26] LABS: Bacteria RARE /hpf (None Seen); Renal Epithelial Cells 0-5 SEEN /hpf (0-5); Squamous Epithelial Cells - UA 0-5 SEEN /hpf (0-5)
[2024-07-27 22:48] VITALS: BP 125/66; PULSE 61; RESP 18; TEMP 36.8; O2SAT 94
== END 2024-07-27 22:53 | disposition home or self-care (01) ==
PROVIDERS: Emergency Provider Emergency Medicine; PCP Internal Medicine; Visit Provider Emergency Medicine
DX: R31.9 Hematuria, unspecified (principal); E11.9 Type 2 diabetes mellitus without complications; I25.10 Atherosclerotic heart disease of native coronary artery without angina pectoris; Z95.5 Presence of coronary angioplasty implant and graft; Z79.02 Long term (current) use of antithrombotics/antiplatelets; Z79.82 Long term (current) use of aspirin; Z79.84 Long term (current) use of oral hypoglycemic drugs; Z79.899 Other long term (current) drug therapy; Z86.16 Personal history of COVID-19
CPT/HCPCS: 80048; 81001; 85025; 87086; 99282

== ENCOUNTER 2024-08-14 10:21 | Inpatient (IN) | payer OTHER, SELFPAY ==
[2023-12-30 09:02] VITALS: BMI 30.4
[2024-08-14] VITALS (7 sets, daily range): BP systolic 102–131; BP diastolic 56–81; PULSE 56–90; RESP 15–18; TEMP 36.6–37.1; O2SAT 95–100; BMI 30.4; BMI 30.7
--- NOTE | 2024-08-14 10:39 | EDS_ITS ---
HPI <PEDRO Denson - Last Filed: 08/14/24 16:33> History of Present Illness Chief Complaint: Complaint Narrative Narrative: 63-year-old male with PMH of DM2, CAD on aspirin and Plavix presents with hematuria, blood clots, and urinary retention that started yesterday afternoon. Patient states initially he saw Dr. Cahpman because an ultrasound showed an enlarged bladder. On July 27 a Sanchez catheter was placed. He had some issues with it getting tugged and hematuria so he had a cystoscopy on August 05. He states he was prescribed Flomax then but only started taking it about 2 days ago. The indwelling Sanchez was removed and he has been self catheterizing which was working until yesterday afternoon when the catheter became blocked with small blood clots. He has the urge to urinate but no urine comes out. He has no fever or chills, nausea or vomiting, or abdominal or flank pain. He states last night he bent over to move boxes and when he stood up he felt lightheaded and briefly passed out. PFSH <PEDRO Denson - Last Filed: 08/14/24 16:33> [facility] Medical History Urinary retention Diabetes Psoriatic arthritis Coronary artery disease Wears partial dentures Wears glasses Alcohol use History of steroid therapy Dietary restriction Heartburn Non-smoker COVID-19 Diabetes Arthritis Medical History no medical history Home Medications ?Medication ?Instructions ?Recorded ?Last Taken ?Type folic acid 1 mg tablet 2 mg PO DAILY 07/04/22 Unkno wn History Lactobacillus acidophilus 10 100 mmu cells PO DAILY Unknown History billion cell capsule (Probiotic) cholecalciferol (vitamin D3) 50 50 mcg PO DAILY Unknown History mcg (2,000 unit) capsule (D3-2000) elderberry fruit 200 mg capsule 200 mg PO DAILY Unknown History omega 3-rag-pjd-fish oil 1,200 mg 1 cap PO DAILY 03/25 Unknown History (144 mg-216 mg) capsule (Fish Oil) vitamin B complex (Complex B-100 1 tab PO DAILY Unknown History tablet,extended release) aspirin 81 mg tablet,delayed 81 mg PO DAILY 08/04/23 0 08/08/23 History release (Adult Low Dose Aspirin) atorvastatin 40 mg tablet 40 mg PO QHS #90 tabs Unknown Rx clopidogrel 75 mg tablet (Plavix) 75 mg PO DAILY #90 t abs 08/14/23 Unknown Rx nitroglycerin 0.4 mg sublingual 0.4 mg sublingual Q5-1 5M PRN chest 11/13/23 Unknown Rx tablet (Nitrostat) pain #25 tabs metformin 500 mg tablet,extended 500 mg PO DAILY #90 t abs 02/23/24 Unknown Rx release 24 hr magnesium 200 mg tablet 200 mg PO QDAY 05/17/24 Unkn own History metoprolol tartrate 25 mg tablet 25 mg PO BID #180 tab s 08/11/24 Unknown Rx methotrexate sodium 2.5 mg tablet 17.5 mg PO QWEEK Unknown History prednisone 10 mg tablet 10 mg PO DAILY PRN ARTHRITIS FLARE 08/14/24 Unknown History UP tamsulosin 0.4 mg capsule 0.4 mg PO QHS 08/14/24 Unkno wn History Allergy/AdvReac Type Severity Reaction Status Date / Time amoxicillin Allergy unknown Verified 08/14/24 10:23 erythromycin base Allergy unknown Verified 08/14/24 10:23 latanoprost (From Xalatan) Allergy unknown Verified 08/14/24 10:23 Family History Mother Psoriasis Diabetes Father Heart disease Hypertension CAD (coronary artery disease) Myocardial infarction Sister CAD (coronary artery disease) Heart disease Hypertension Myocardial infarction Brother CAD (coronary artery disease) Heart disease Hypertension Myocardial infarction Family History no significant family his Surgical History Hx of cardiac catheterization (~08/09/23) Stented coronary artery (~08/09/23) H/O tooth extraction Hx of eye surgery Surgical History no surgical history Social History household members: spouse Smoking Status: Never smoker alcohol intake: current alcohol intake frequency: holidays/special occasions only substance use type: does not use ROS <PEDRO Denson - Last Filed: 08/14/24 16:33> ROS ED ROS Narrative Constitutional: Negative for fever, chills, malaise. GI: Negative for abdominal pain, nausea, vomiting. : Positive for hematuria. Neuro: EXAM <PEDRO Denson - Last Filed: 08/14/24 16:33> Physical Exam Narrative Exam Narrative: CONST: Patient sitting in no acute distress. EYES: Normal inspection. NECK: Normal inspection. RESP: No respiratory distress, CTAB. CVS: Regular rate and rhythm, no murmur, no gallop. ABD: Soft and nontender, no guarding or rebound, nondistended. SKIN: Color normal, no rash, warm, dry, intact. EXTREMITIES: Normal appearance, no pedal edema. NEURO: Alert and answering questions appropriately. PSYCH: Normal affect. Const Vital Signs: 08/14/24 10:21 Temperature 97.8 F Temperature Source Oral Pulse Rate 56 L Respiratory Rate 16 Blood Pressure 110/56 L Blood Pressure Mean 74 Pulse Ox 95 Oxygen Delivery Method Room Air <Dr. Roberto Falcon DO - Last Filed: 08/14/24 16:59> Physical Exam Const Vital Signs: 08/14/24 10:21 Temperature 97.8 F Temperature Source Oral Pulse Rate 56 L Respiratory Rate 16 Blood Pressure 110/56 L Blood Pressure Mean 74 Pulse Ox 95 Oxygen Delivery Method Room Air MDM <PEDRO Denson - Last Filed: 08/14/24 16:33> [facility] MDM Narrative Medical decision making narrative: History gathered from: Patient and spouse Consults: Urology 63-year-old male with PMH of self-catheterization due to nonfunctioning/neurogenic bladder developed urinary retention, blood and clots last night. He is on aspirin/Plavix for history of cardiac stents in July 2023. He appears well and nontoxic. Vital signs stable with a benign exam. WBC is 9.5. Hemoglobin is 10.4 which is significantly down from 15.0 on July 27 . BUN 28, creatinine 1.00. Urinalysis has blood but no infection. Initially the nurse placed a coud? catheter for manual irrigation and there was 200 cc of dark bloody urine with small clots expressed. There was some difficulty placing a three-way Sanchez but it was eventually placed and continuous bladder irrigation has started and the urine is light pink. I discussed the case with Dr. Chapman who recommended admission to the medical team for continuous bladder irrigation and monitoring of his blood counts. He said it was likely from self- catheterization and at this time he would not repeat a cystoscopy. He will see the patient in the hospital. I discussed with the hospitalist for admission. External records reviewed: 08/05/2024 cystoscopy: Weakened bladder with minimal function. Prostate is minimally obstructive so unlikely a TURP would be of benefit. Recommended patient learn how to do intermittent self catheterization. Lab Data Attestation: I reviewed the patient's lab results. Labs: Laboratory Results - last 24 hr 08/14/24 08/14/24 11:38 11:45 WBC 9.5 RBC 3.30 L Hgb 10.4 L Hct 31.1 L MCV 94.2 H MCH 31.5 MCHC 33.4 RDW Std Deviation 45.6 H RDW Coeff of Renzo 13.3 Plt Count 163 MPV 10.8 Immature Gran % (Auto) 0.300 Neut % (Auto) 71.3 H Lymph % (Auto) 14.3 L Knott % (Auto) 12.2 H Eos % (Auto) 1.7 Baso % (Auto) 0.2 Absolute Neuts (auto) 6.8 Absolute Lymphs (auto) 1.36 Nucleated RBC % 0 Sodium 138 Potassium 4.2 Chloride 106 Carbon Dioxide 20.5 L Anion Gap 11 BUN 28 H Creatinine 1.00 Estim Creat Clear Calc 79.63 Est GFR (MDRD) Non-Af 86 BUN/Creatinine Ratio 27.7 H Glucose 198 H Calcium 8.3 Urine Color Red Urine Clarity Turbid Urine pH 7.0 Ur Specific [place]illac 1.015 Urine Protein 500 H Urine Glucose (UA) Normal Urine Ketones Negative Urine Occult Blood 250 H Urine Nitrite Negative Urine Bilirubin Negative Urine Urobilinogen Normal Ur Leukocyte Esterase 25 H Urine RBC > 100 SEEN Urine WBC 0-5 SEEN Ur Squamous Epith Cells 0 SEEN Urine Bacteria 0 SEEN Urine Mucus 0 SEEN EKG Initial EKG: Attestation: I personally reviewed and interpreted this EKG as follows: Interpretation: Sinus Rhythm and No Acute Injury Pattern Comments: Normal sinus rhythm [address] changes Prior EKG tracings: available for review Prior: Unchanged <Dr. Roberto Falcon, DO - Last Filed: 08/14/24 16:59> [facility] MDM Narrative Medical decision making narrative: History gathered from: Patient and spouse Consults: Urology 63-year-old male with PMH of self-catheterization due to nonfunctioning/neurogenic bladder developed urinary retention, blood and clots last night. He is on aspirin/Plavix for history of cardiac stents in July 2023. He appears well and nontoxic. Vital signs stable with a benign exam. WBC is 9.5. Hemoglobin is 10.4 which is significantly down from 15.0 on July 27. BUN 28, creatinine 1.00. Urinalysis has blood but no infection. Initially the nurse placed a coud? catheter for manual irrigation and there was 200 cc of dark bloody urine with small clots expressed. There was some difficulty placing a three-way Sanchez but it was eventually placed and continuous bladder irrigation has started and the urine is light pink. I discussed the case with Dr. Chapman who recommended admission to the medical team for continuous bladder irrigation and monitoring of his blood counts. He said it was likely from self- catheterization and at this time he would not repeat a cystoscopy. He will see the patient in the hospital. I discussed with the hospitalist for admission. External records reviewed: 08/05/2024 cystoscopy: Weakened bladder with minimal function. Prostate is minimally obstructive so unlikely a TURP would be of benefit. Recommended patient learn how to do intermittent self catheterization. Attending note: I have personally performed a face to face assessment of the patient and have reviewed the JEROD note. I personally made/approved the management plan and take responsibility for the patient management. I performed a substantive portion of the visit including all aspects of the following. My alex findings include: Increasing blood in urine with self catheter last 9 days. Yesterday had clots unable to cath. Followed by He is on aspirin and Plavix history of coronary stent Ari. Last stent was placed little over a year ago August 09, 2023. He had a cystoscopy 9 days ago with Sanchez removal. Started on Flomax started 2 days ago yesterday had a syncopal episode lightheaded symptoms. No chest pains. He is unable cath for nearly 24 hours denies any abdominal pain. Exam no focal deficits heart regular lungs clear abdomen nondistended. Patient single episode on for EKG obtained check labs, hemoglobin down to 10 from 15. Nursing unable to place three-way catheter initially and replaced a coud?, gross blood with clots. Urine without infection however noted turbid blood. There were 25 leukocytes I sent for urine culture. White count normal. Creatinine normal at 1. Nursing able to transition over to three-way Sanchez catheter for continuous bladder irrigation. Still grossly bloody. He had urine output from his initial Sanchez total of 2 L. We spoke with urology recommend admission to medicine for H&H and CBI. Spoke with hospitalist for admission. Lab Data Labs: Laboratory Results - last 24 hr 08/14/24 08/14/24 11:38 11:45 WBC 9.5 RBC 3.30 L Hgb 10.4 L Hct 31.1 L MCV 94.2 H MCH 31.5 MCHC 33.4 RDW Std Deviation 45.6 H RDW Coeff of Renzo 13.3 Plt Count 163 MPV 10.8 Immature Gran % (Auto) 0.300 Neut % (Auto) 71.3 H Lymph % (Auto) 14.3 L Knott % (Auto) 12.2 H Eos % (Auto) 1.7 Baso % (Auto) 0.2 Absolute Neuts (auto) 6.8 Absolute Lymphs (auto) 1.36 Nucleated RBC % 0 Sodium 138 Potassium 4.2 Chloride 106 Carbon Dioxide 20.5 L Anion Gap 11 BUN 28 H Creatinine 1.00 Estim Creat Clear Calc 79.63 Est GFR (MDRD) Non-Af 86 BUN/Creatinine Ratio 27.7 H Glucose 198 H Calcium 8.3 Urine Color Red Urine Clarity Turbid Urine pH 7.0 Ur Specific [place] 1.015 Urine Protein 500 H Urine Glucose (UA) Normal Urine Ketones Negative Urine Occult Blood 250 H Urine Nitrite Negative Urine Bilirubin Negative Urine Urobilinogen Normal Ur Leukocyte Esterase 25 H Urine RBC > 100 SEEN Urine WBC 0-5 SEEN Ur Squamous Epith Cells 0 SEEN Urine Bacteria 0 SEEN Urine Mucus 0 SEEN Discharge Plan Dx/Rx/DC Orders Clinical Impression: Acute urinary retention, Hematuria, Anemia Disposition Disposition: [facility] Discharge Date/Time: 08/14/24 16:05
--- NOTE | 2024-08-14 10:47 | EKG12_ITS ---
Test Reason : BLOOD IN URINE Blood Pressure : */* mmHG Vent. Rate : 85 BPM Atrial Rate : 85 BPM P-R Int : 160 ms QRS Dur : 78 ms QT Int : 376 ms P-R-T Axes : 42 33 9 degrees QTcB Int : 447 ms Normal sinus rhythm Nonspecific ST abnormality Abnormal ECG Confirmed by KASH JOYCE, KAMRAN ([id number]), online content editor GRICELDA KIRK ([id number]) on 08/16/2024 8:33:04 AM Referred By: Confirmed By: KAMRAN HEWITT MD
[2024-08-14 11:54] LABS: Absolute Lymphocyte Count 1.36 X10^3/uL (0.83-4.51); Absolute Neutrophil Count 6.8 X10^3/uL (2.0-7.7); Basophil# 0.02 X10^3/uL; Basophil% 0.2 % (0-1); Eosinophil# 0.16 X10^3/uL; Eosinophils% 1.7 % (0-5); Hematocrit 31.1 % (40-54); Hemoglobin 10.4 g/dL (13.0-16.5); Lymphocyte # 1.36 X10^3/ul (0.83-4.51); Lymphocyte % 14.3 % (19-41); Mean Corp Hgb Conc 33.4 g/dL (32-36); Mean Corpuscular Hgb 31.5 pg (27.0-32.0); Mean Corpuscular Volume 94.2 fL (80-94); Mean Platelet Vol. 10.8 fl (6.2-12.0); Monocyte# 1.16 X10^3/uL; Monocyte% 12.2 % (0-10); NRBC Flagged by Analyzer 0 % (0-5); Neutrophil # 6.75 X10^3/uL (2.7-7.7); Neutrophil % 71.3 % (47-70); Platelet Count 163 K/mm3 (150-450); RBC Distribution Width CV 13.3 % (11.6-14.6); RBC Distribution Width SD 45.6 fl (35.1-43.9); White Blood Count 9.5 K/mm3 (4.4-11.0)
[2024-08-14 12:05] LABS: Color, Urine Red (Yellow); Glucose, Dipstick Normal (Normal); Ketone-Dipstick Negative (Negative); Leukocyte Esterase-Dipstick 25 /ul (Negative); Nitrite-Dipstick Negative (Negative); Occult Blood-Urine 250 /ul (Negative); Protein-Dipstick 500 mg/dl (Negative); Specific Gravity, Urine 1.015 (1.002-1.030); Urine Bilirubin Dipstick Negative (Negative); Urine Clarity Turbid (Clear); Urine Urobilinogen Normal (Normal)
[2024-08-14] MEDS: Lidocaine Jelly 2% 20 ML Syringe (URO-JET) 1 APPLIC TOPICAL ×2 (12:07→13:00)
[2024-08-14 12:17] LABS: Bacteria 0 SEEN /hpf (None Seen); Mucous, Urine 0 SEEN /hpf (<or=2+); Red Blood Cells-Urine > 100 SEEN /hpf (0-5); Squamous Epithelial Cells - UA 0 SEEN /hpf (0-5); White Blood Cells 0-5 SEEN /hpf (0-5)
[2024-08-14 13:45] LABS: Anion Gap 11 (5-15); BUN 28 mg/dL (4-19); BUN/Creat Ratio 27.7 RATIO (10-20); Calcium,Total 8.3 mg/dL (7.6-11.0); Carbon Dioxide 20.5 mmol/L (21.0-32.0); Chloride 106 mmol/L (98-108); EST Glomerular Filtration Rate 86 (>60); Estimated Creatinine Clearance 79.63 ml/min (50-250); Glucose 198 mg/dL (70-99); Potassium 4.2 mmol/L (3.3-5.1); Sodium Level 138 mmol/L (133-145)
--- NOTE | 2024-08-14 14:44 | PCM.HP.STD ---
HPI - General General Date of Admission: 08/14/24 Date of Service: 08/14/24 Chief Complaint: Hematuria, urinary retention, recurrent with syncopal event. HPI Narrative The patient is a 63 y/o M w/ PMHx: Neurogenic bladder w/ chronic intermittent issues with retention requiring chronic Paula catheter insertion, Obesity, RA/Psoriatic arthritis, HTN, HLD, Diabetes mellitus type II, CAD s/p PCI on asa/plavix who presents to the [facility] ED on with history of onset hematuria with notable blood clots as well as urinary retention starting the day previous in the afternoon evaluated at that time by Dr. Chapman with ultrasound performed demonstrating a large bladder with recent 07/27/24 Paula catheter placed secondary to retention issues and unfortunately he noted issues with accidentally getting it pulled with hematuria following initial placement with cystoscopy on 08/05/24 prescribed Flomax which she started taking 2 days previously with indwelling catheter removed recently and has been self catheterizing which was effective until the day prior when the catheter became blocked with small blood clots with urge but inability to have urine, with no recent fevers or chills but he did note that he was recently the evening prior moving boxes and when he stood up he felt lightheadedness with syncopal event which was noted to be short with no trauma prompting eventual ED evaluation today given not improving. Did note initial suprapubic discomfort and cramping however its improved. Workup in the ED included T97.8, heart rate 56, BP 110/56, respiratory rate 16, 95% room air, CBC with WBC 9.5, hemoglobin 10.4, MCV 94.2, platelet 163 without marked shift, BMP with BUN/creatinine 28/1.0, GFR 86, glucose 198, urine turbid with specific [place] 1.015, protein 500, occult blood 250, negative nitrite, leukocyte esterase 25, urine RBCs greater than 100 with no evidence of any WBCs or bacteria, EKG with sinus rhythm with no acute evidence of ischemia, urine culture pending per ED. ED discussed with Dr. Chapman and 3-way paula was placed with continuous irrigation started per Dr. Chapman who requested medical consultation. [facility] Medical History Urinary retention Diabetes Psoriatic arthritis Coronary artery disease Wears partial dentures Wears glasses Alcohol use History of steroid therapy Dietary restriction Heartburn Non-smoker COVID-19 Diabetes Arthritis Medical History no medical history Home Medications ?Medication ?Instructions ?Recorded ?Last Taken ?Type folic acid 1 mg tablet 2 mg PO DAILY 07/04/22 Unknown History Lactobacillus acidophilus 10 100 mmu cells PO DAILY 03/25/23 Unknown History billion cell capsule (Probiotic) cholecalciferol (vitamin D3) 50 50 mcg PO DAILY 03/25/23 Unknown History mcg (2,000 unit) capsule (D3-2000) elderberry fruit 200 mg capsule 200 mg PO DAILY 03/25/23 Unknown History omega 7-ngp-cqt-fish oil 1,200 mg 1 cap PO DAILY 03/25/23 Unknown History (144 mg-216 mg) capsule (Fish Oil) vitamin B complex (Complex B-100 1 tab PO DAILY 03/25/23 Unknown History tablet,extended release) aspirin 81 mg tablet,delayed 81 mg PO DAILY 08/04/23 08/08/23 History release (Adult Low Dose Aspirin) atorvastatin 40 mg tablet 40 mg PO QHS #90 tabs 08/14/23 Unknown Rx clopidogrel 75 mg tablet (Plavix) 75 mg PO DAILY #90 tabs 08/14/23 Unknown Rx nitroglycerin 0.4 mg sublingual 0.4 mg sublingual Q5-15M PRN chest 11/13/23 Unknown Rx tablet (Nitrostat) pain #25 tabs metformin 500 mg tablet,extended 500 mg PO DAILY #90 tabs 02/23/24 Unknown Rx release 24 hr magnesium 200 mg tablet 200 mg PO QDAY 05/17/24 Unknown History metoprolol tartrate 25 mg tablet 25 mg PO BID #180 tabs 08/11/24 Unknown Rx methotrexate sodium 2.5 mg tablet 17.5 mg PO QWEEK 08/14/24 Unknown History prednisone 10 mg tablet 10 mg PO DAILY PRN ARTHRITIS FLARE 08/14/24 Unknown History UP tamsulosin 0.4 mg capsule 0.4 mg PO QHS 08/14/24 Unknown History Allergy/AdvReac Type Severity Reaction Status Date / Time amoxicillin Allergy unknown Verified 08/14/24 10:23 erythromycin base Allergy unknown Verified 08/14/24 10:23 latanoprost (From Xalatan) Allergy unknown Verified 08/14/24 10:23 Family History Mother Psoriasis Diabetes Father Heart disease Hypertension CAD (coronary artery disease) Myocardial infarction Sister CAD (coronary artery disease) Heart disease Hypertension Myocardial infarction Brother CAD (coronary artery disease) Heart disease Hypertension Myocardial infarction Family History no significant family his Surgical History Hx of cardiac catheterization (~08/09/23) Stented coronary artery (~08/09/23) H/O tooth extraction Hx of eye surgery Surgical History no surgical history Social History household members: spouse Smoking Status: Never smoker alcohol intake: current alcohol intake frequency: holidays/special occasions only substance use type: does not use ROS ROS Narrative Admission Review of Systems: CONSTITUTIONAL: No weight loss, fever, chills, weakness or fatigue. HEENT: + Lightheadedness/dizziness. Eyes: No visual loss, blurred vision, double vision or yellow sclerae. Ears, Nose, Throat: No hearing loss, sneezing, congestion, runny nose or sore throat. SKIN: No rash or itching, lesions, wounds. CARDIOVASCULAR: + Syncopal event with lightheadedness/dizziness while bending over. No chest pain, chest pressure or chest discomfort, palpitations, edema, orthopnea. RESPIRATORY: No shortness of breath, cough or sputum, wheezing, hemoptysis. GASTROINTESTINAL: No anorexia, nausea, vomiting or diarrhea, abdominal pain, melena, BRBPR. GENITOURINARY: + Urinary retention, hematuria, clots, suprapubic discomfort, frequency. NEUROLOGICAL: + Syncopal event with lightheadedness/dizziness while bending over. No headache, paralysis, ataxia, numbness or tingling in the extremities, focal weakness, change in bowel or bladder control, seizure. MUSCULOSKELETAL: + muscle, back pain, joint pain or stiffness. HEMATOLOGIC: Acute blood loss anemia,+ acute hematuria as noted. LYMPHATICS: No enlarged nodes. No history of splenectomy. PSYCHIATRIC: No history of depression or anxiety. ENDOCRINOLOGIC: No reports of sweating, cold or heat intolerance. No polyuria or polydipsia. ALLERGIES: No history of asthma, hives, eczema or rhinitis. Vital Signs Vital Signs Vital Signs: 08/14/24 10:21 Temperature 97.8 F Temperature Source Oral Pulse Rate 56 L Respiratory Rate 16 Blood Pressure 110/56 L Blood Pressure Mean 74 Pulse Ox 95 Oxygen Delivery Method Room Air Weight Weight: 189 lb Body Mass Index (BMI) 30.4 Physical Exam Narrative Physical Examination: General: Awake, alert, oriented x 3 and cooperative, seated upright in the ED bed in no apparent distress, fatigued appearing. Skin: Normal color, normal turgor, no icterus, no cyanosis. HEENT: AT/NC, EOMI, PERRLA, mildly dry MM, no carotid bruits or JVD noted. Lungs: CTA bilaterally, moderate effort, mild decrease BL bases, no rales, ronchi or wheezing. Heart: Regular rate and rhythm; no gallop, rub audible. Abdomen: Soft, obese, mild discomfort to suprapubic palpation but not severe, otherwise abdomen nontender to palpation, ND, mildly hyperactive BS, no appreciated HSM. : Three-way Paula catheter in place with ongoing continuous irrigation, urine is still bright red tinge. Extremities: No cyanosis, clubbing, or edema. Neurological: Patient awake, alert, oriented as noted, cognitive function intact; pupils equally reactive to light and accommodation, cranial nerves grossly normal, moving all 4 extremities, no focal deficits, strength mild and moderately globally creased given acute presentation Psychiatric: Affect appears fatigued, no acute evidence of depressive or anxiety feelings. Results Lab / Micro Data 08/14/24 11:45 08/14/24 11:45 Labs: Laboratory Results - last 24 hr 08/14/24 11:38: Urine Color Red, Urine Clarity Turbid, Urine pH 7.0, Ur Specific [place] 1.015, Urine Protein 500 H, Urine Glucose (UA) Normal, Urine Ketones Negative, Urine Occult Blood 250 H, Urine Nitrite Negative, Urine Bilirubin Negative, Urine Urobilinogen Normal, Ur Leukocyte Esterase 25 H, Urine RBC > 100 SEEN, Urine WBC 0-5 SEEN, Ur Squamous Epith Cells 0 SEEN, Urine Bacteria 0 SEEN, Urine Mucus 0 SEEN 08/14/24 11:45: WBC 9.5, RBC 3.30 L, Hgb 10.4 L, Hct 31.1 L, MCV 94.2 H, MCH 31.5, MCHC 33.4, RDW Std Deviation 45.6 H, RDW Coeff of Renzo 13.3, Plt Count 163, MPV 10.8, Immature Gran % (Auto) 0.300, Neut % (Auto) 71.3 H, Lymph % (Auto) 14.3 L, Bennett % (Auto) 12.2 H, Eos % (Auto) 1.7, Baso % (Auto) 0.2, Absolute Neuts (auto) 6.8, Absolute Lymphs (auto) 1.36, Nucleated RBC % 0, Sodium 138, Potassium 4.2, Chloride 106, Carbon Dioxide 20.5 L, Anion Gap 11, BUN 28 H, Creatinine 1.00, Estim Creat Clear Calc 79.63, Est GFR (MDRD) Non-Af 86, BUN/Creatinine Ratio 27.7 H, Glucose 198 H, Calcium 8.3 Assessment & Plan Assessment/Plan (1) Acute urinary retention: (2) Hematuria: (3) Anemia: PLAN: Plan The patient is a 63 y/o M w/ PMHx: Neurogenic bladder w/ chronic intermittent issues with retention requiring chronic Paula catheter insertion, Obesity, RA/Psoriatic arthritis, HTN, HLD, Diabetes mellitus type II, CAD s/p PCI on asa/plavix who presents to the [facility] ED on with history of onset hematuria with notable blood clots as well as urinary retention starting the day previous in the afternoon evaluated at that time by Dr. Chapman with ultrasound performed demonstrating a large bladder with recent 07/27/24 Paula catheter placed secondary to retention issues and unfortunately he noted issues with accidentally getting it pulled with hematuria following initial placement with cystoscopy on 08/05/24 prescribed Flomax which she started taking 2 days previously with indwelling catheter removed recently and has been self catheterizing which was effective until the day prior when the catheter became blocked with small blood clots with urge but inability to have urine, with no recent fevers or chills but he did note that he was recently the evening prior moving boxes and when he stood up he felt lightheadedness with syncopal event which was noted to be short with no trauma prompting eventual ED evaluation today given not improving. #1. Acute urinary retention with no neurogenic bladder secondary to significant hematuria with acute blood loss anemia associated with syncopal event: Admission CBC with hemoglobin 10.4, MCV 94.2, most recent hemoglobin 07/27/24 15 at that time and ranges between 13 and 14 primarily, will admit to MS telemetry given stable VS, will continue continuous irrigation of the bladder specifically per urology direction, will trend H&H and repeat CBC in the a.m. to assure stabilizing, will increase Flomax to twice daily pending urology evaluation with discretion of change per their service, in case worsening hemoglobin will plan n.p.o. status after midnight for possibility of urological intervention needs, maintain on fall precautions. #2. CAD: Status post most recent cardiac catheterization 07/2023 with severe distal left anterior descending artery stenosis, moderate proximal left anterior descending artery stenosis, severe disease noted of the first diagonal vessel and subtotally occluded first obtuse marginal vessel with retrograde filling with successful PCI to the LAD, given timeline and acute presentation will temporally hold dual antiplatelet therapy, add back immediately at least aspirin therapy once amenable per urology, we will continue patient statin, metoprolol with hold parameters, not on SOBEIDA Imdur/ARB. #3. Diabetes mellitus type II: Hold oral home regimen, continue home insulin regimen, ADA diet, accu checks w/ ISS. #4. Hypertension: Continue home regimen including metoprolol with hold parameters as needed, PRN hydralazine. #5. Hyperlipidemia: Will continue patient on statin therapy. #6. Rheumatoid arthritis/psoriatic arthritis: Per record patient on outpatient injections as well as methotrexate and prednisone as needed, will separately hold immunosuppressant therapy, continue folic acid supplementation. #7. Obesity: Weight loss and lifestyle changes encouraged. #8. DVT prophylaxis: SCDs. #9. CODE status: Patient does not have healthcare power of criminal defense attorney or living will in place but notes his was present would be his medical decision-maker if necessary. Discussed CODE status at length including difference between FULL code, DNR-CCA and DNR-CC status. Following discussions about the differences in these status, requested Full Code status. Charges/Coding Visit Charges Inpatient E&M: 90557 Init Hosp L3
--- NOTE | 2024-08-14 15:20 | CASEMGMT ---
Care Management Face to Face with patient for initial transition planning/care coordination assessment in the ED.? This sports book writer introduced self and role at [facility]. Patient alert and oriented. Patient willing to participate in assessment and is able to answer all questions appropriately.? Care providers, pharmacy, and demographics verified. Patient?s , Lili, was also present and assisted with assessment when needed. Admitting Diagnosis: Acute Urinary Retention Other diagnosis history: Including but may not limited to: DM, Psoriatic Arthritis, and CAD. PCP: Dr. Woods Specialists: Urologist: Dr. Chapman, Transmission Calibration Engineer: Dr. Noel, ?Eye Surgeon: ?Dr. Vazquez and Apn: Dr. Potter Preferred Pharmacy: [email or web address]. Insurance: [employer] Prescription Benefit: No although patient does get discounts on medication through [facility] [employer] Living Will/HPOA: ?No but may be interested in during this admission. LNOK: , Lili and 4 daughters of [facility] and [place]. Living Arrangements: Patient and patient?s live together in a 1-story home with a basement which patient stated he rarely uses. There is 1 step leading in/out of the house and over 9 steps leading to the basement.? There are handrails. Patient denied any concerns ambulating stairs and also denied any environmental barriers. Transportation: Patient and patient?s both drive. DME: Self-Catheterization HHC: Denied SNF/Rehab:? Cardiac Rehab in the summer at [facility]. Community Resources: [facility] Health History: Denied Patient goals: Patient wishes to discharge home when medically ready, and denied need for home health care at this time. Patient denies any further needs or concerns at this time. Disposition Plan: admission to acute; RN CM/SW to follow for discharge planning needs that may arise. Rachel Harmon, GOLF CLUB FACER, CHARGE MASTER COORDINATOR
[2024-08-14 17:07] LABS: Hematocrit 33.2 % (40-54); Hemoglobin 10.9 g/dL (13.0-16.5)
[2024-08-14] MEDS: 0.9% Normal Saline (1000mL) 1,000 ML 100 ML IV (17:07)
[2024-08-14 17:23] LABS: Bedside Glucose 125 mg/dL (74-106)
[2024-08-14] MEDS: Metoprolol Tartrate 25 MG Tablet PO (21:58)
[2024-08-14] MEDS: Atorvastatin Calcium 40 MG Tablet PO (21:58)
[2024-08-14] MEDS: Tamsulosin HCl 0.4 MG Capsule PO (21:59)
[2024-08-14] MEDS: Insulin Lispro 100 UNIT/ML INSULN.PEN SC (22:09)
[2024-08-14 22:30] LABS: Bedside Glucose 195 mg/dL (74-106)
[2024-08-14 22:31] LABS: Hematocrit 28.5 % (40-54); Hemoglobin 9.8 g/dL (13.0-16.5)
[2024-08-15] VITALS (8 sets, daily range): BP systolic 97–128; BP diastolic 59–76; PULSE 82–98; RESP 17–18; TEMP 36.8–37.2; O2SAT 96–100; BMI 29.4
[2024-08-15 04:17] LABS: Absolute Lymphocyte Count 1.13 X10^3/uL (0.83-4.51); Absolute Neutrophil Count 6.9 X10^3/uL (2.0-7.7); Basophil# 0.04 X10^3/uL; Basophil% 0.4 % (0-1); Eosinophil# 0.33 X10^3/uL; Eosinophils% 3.5 % (0-5); Hematocrit 28.5 % (40-54); Hemoglobin 9.6 g/dL (13.0-16.5); Lymphocyte # 1.13 X10^3/ul (0.83-4.51); Lymphocyte % 11.9 % (19-41); Mean Corp Hgb Conc 33.7 g/dL (32-36); Mean Corpuscular Hgb 31.8 pg (27.0-32.0); Mean Corpuscular Volume 94.4 fL (80-94); Mean Platelet Vol. 10.6 fl (6.2-12.0); Monocyte# 1.07 X10^3/uL; Monocyte% 11.3 % (0-10); NRBC Flagged by Analyzer 0 % (0-5); Neutrophil # 6.88 X10^3/uL (2.7-7.7); Neutrophil % 72.4 % (47-70); Platelet Count 126 K/mm3 (150-450); RBC Distribution Width CV 13.3 % (11.6-14.6); RBC Distribution Width SD 45.8 fl (35.1-43.9); Red Blood Count 3.02 M/mm3 (4.6-6.2); White Blood Count 9.5 K/mm3 (4.4-11.0)
[2024-08-15 04:56] LABS: ALB/GLOB Ratio 1.5 RATIO (0.9-2.4); AST(SGOT) 20 U/L (<=37); Alanine Aminotransfer ALT/SGPT 23 U/L (<=46); Albumin, Serum 3.3 g/dL (3.4-4.8); Alkaline Phosphatase 65 U/L (40-129); Anion Gap 8 (5-15); BUN 14 mg/dL (4-19); BUN/Creat Ratio 17.5 RATIO (10-20); Calcium,Total 8.4 mg/dL (7.6-11.0); Carbon Dioxide 22.6 mmol/L (21.0-32.0); Chloride 109 mmol/L (98-108); Creatinine, Serum 0.82 mg/dL (0.70-1.20); EST Glomerular Filtration Rate 100 (>60); Estimated Creatinine Clearance 97.35 ml/min (50-250); Globulin 2.2 g/dL (2.2-4.2); Glucose 154 mg/dL (70-99); Potassium 4.1 mmol/L (3.3-5.1); Protein, Total 5.5 g/dL (5.9-8.4); Sodium Level 139 mmol/L (133-145); Total Bilirubin 0.41 mg/dL (0.00-1.30)
[2024-08-15 07:16] LABS: Bedside Glucose 143 mg/dL (74-106)
--- NOTE | 2024-08-15 07:24 | PN.HOSP_ITS ---
Reason for Visit Reason for Visit: Diagnoses Anemia, unspecified (08/14/24) Hematuria, unspecified (08/14/24) Other retention of urine (08/14/24) Objective Data Objective Data Vital Signs: Vital Signs Temp Pulse Resp BP Pulse Ox O2 Del Method 98.5 F 84 18 128/76 H 100 Room Air 08/15/24 02:00 08/15/24 02:00 08/15/24 02:00 08/15/24 02:00 08/15/24 02:00 08/15/24 02:30 Oxygen Delivery Method Room Air Weight: 183 lb 3.266 oz Body Mass Index (BMI) 29.4 Intake & Output: Intake and Output for Last 24 Hours 08/13/24 08/14/24 08/15/24 23:59 23:59 23:59 Intake Total 1300 / 1300 Output Total 825 / 825 100 / 100 Balance -825 / -825 1200 / 1200 Lab / Micro Data 08/15/24 03:55 08/15/24 03:55 Labs: Laboratory Results - last 24 hr 08/14/24 11:38: Urine Color Red, Urine Clarity Turbid, Urine pH 7.0, Ur Specific [place] 1.015, Urine Protein 500 H, Urine Glucose (UA) Normal, Urine Ketones Negative, Urine Occult Blood 250 H, Urine Nitrite Negative, Urine Bilirubin Negative, Urine Urobilinogen Normal, Ur Leukocyte Esterase 25 H, Urine RBC > 100 SEEN, Urine WBC 0-5 SEEN, Ur Squamous Epith Cells 0 SEEN, Urine Bacteria 0 SEEN, Urine Mucus 0 SEEN 08/14/24 11:45: WBC 9.5, RBC 3.30 L, Hgb 10.4 L, Hct 31.1 L, MCV 94.2 H, MCH 31.5, MCHC 33.4, RDW Std Deviation 45.6 H, RDW Coeff of Renzo 13.3, Plt Count 163, MPV 10.8, Immature Gran % (Auto) 0.300, Neut % (Auto) 71.3 H, Lymph % (Auto) 14.3 L, [place] % (Auto) 12.2 H, Eos % (Auto) 1.7, Baso % (Auto) 0.2, Absolute Neuts (auto) 6.8, Absolute Lymphs (auto) 1.36, Nucleated RBC % 0, Sodium 138, Potassium 4.2, Chloride 106, Carbon Dioxide 20.5 L, Anion Gap 11, BUN 28 H, Creatinine 1.00, Estim Creat Clear Calc 79.63, Est GFR (MDRD) Non-Af 86, B UN/Creatinine Ratio 27.7 H, Glucose 198 H, Calcium 8.3 08/14/24 16:47: Hgb 10.9 L, Hct 33.2 L 08/14/24 17:04: POC Glucose 125 H 08/14/24 22:06: POC Glucose 195 H 08/14/24 22:23: Hgb 9.8 L, Hct 28.5 L 08/15/24 03:55: WBC 9.5, RBC 3.02 L, Hgb 9.6 L, Hct 28.5 L, MCV 94.4 H, MCH 31.8, MCHC 33.7, RDW Std Deviation 45.8 H, RDW Coeff of Renzo 13.3, Plt Count 126 L, MPV 10.6, Immature Gran % (Auto) 0.500, Neut % (Auto) 72.4 H, Lymph % (Auto) 11.9 L, [place] % (Auto) 11.3 H, Eos % (Auto) 3.5, Baso % (Auto) 0.4, Absolute Neuts (auto) 6.9, Absolute Lymphs (auto) 1.13, Nucleated RBC % 0, Sodium 139, Potassium 4.1, Chloride 109 H, Carbon Dioxide 22.6, Anion Gap 8, BUN 14, Creatinine 0.82, Estim Creat Clear Calc 97.35, Est GFR (MDRD) Non-Af 100, BUN/Creatinine Ratio 17.5, Glucose 154 H, Calcium 8.4, Total Bilirubin 0.41, AST 20, ALT 23, Alkaline Phosphatase 65, Total Protein 5.5 L, Albumin 3.3 L, Globulin 2.2, Albumin/Globulin Ratio 1.5 08/15/24 06:47: POC Glucose 143 H Physical Exam Narrative Patient started bleeding per urethra on the Friday at work. He felt urgency and obstruction and has to strain for the urine General: Alert, Oriented x3, Cooperative HEENT: Atraumatic, PERRLA, EOMI, Normocephalic Oral: No Gingival or Mucosal Lesions/ Ulcerations Neck: Supple, No JVD, Negative Carotid Bruits Chest wall/Lungs: Air entry diminished in bilateral lung bases. No crepitation/rhonchi Cardiovascular: Regular rate, Regular Rhythm, Normal S1, Normal S2, No M/G/R Abdomen: Bowel Sounds Present, Soft, Non Tender, Non-Distended : No dysuria. No renal angle tenderness. No suprapubic tenderness. Extremities: No edema, Capillary Refill Less than 3 Seconds Skin: No rashes, No breakdown Musculoskeletal: No Tenderness to Palpation of Joints or Extremities Neurological: Cranial nerves II-XII grossly intact, DTR 2+/4. No acute focal neurological deficit. Psych/Mental Status: Normal Affect, Appropriate. Assessment & Plan Assessment/Plan (1) Acute urinary retention: (2) Hematuria: (3) Anemia: PLAN: Plan The patient is a 63 y/o M came to the ED with hematuria with blood clots, difficulty urination, urine retention on Plavix. Prior to that patient has seen Dr. Chapman on the afternoon before yesterday. Patient had Sanchez catheterization on 07/27 and then cystoscopy/stent: Snachez catheter was removed. After the patient was self catheterizing until it was blocked yesterday. He also felt lightheadedness with syncopal event which was noted to be short with no trauma prompting eventual ED evaluation today given not improving. #1. Acute urinary retention with no neurogenic bladder secondary to significant hematuria with acute blood loss anemia associated with syncopal event: Admission CBC with hemoglobin 10.4,. Most recent ranges between 13 to 14 g. Today 9.6. On continuous bladder irrigation. Monitor CBC. Urobag and urine tube blood mixed with urine #2. CAD: Status post most recent cardiac catheterization 07/2023 with severe distal left anterior descending artery stenosis, moderate proximal left anterior descending artery stenosis, severe disease noted of the first diagonal vessel and subtotally occluded first obtuse marginal vessel with retrograde filling with successful PCI to the LAD, on baby aspirin and Plavix on hold. #3. Diabetes mellitus type II: Hold oral home regimen, continue home insulin regimen, ADA diet, accu checks w/ ISS. 08/15: Close reasonably controlled #4. Hypertension: Continue home regimen including metoprolol with hold parameters as needed, PRN hydralazine. #5. Hyperlipidemia: Will continue patient on statin therapy. #6. Rheumatoid arthritis/psoriatic arthritis: Per record patient on outpatient injections as well as methotrexate and prednisone as needed, will separately hold immunosuppressant therapy, continue folic acid supplementation. #7. Obesity: Weight loss and lifestyle changes encouraged. #8. DVT prophylaxis: SCDs. #9. CODE status: Patient does not have healthcare power of contract attorney or living will in place but notes his was present would be his medical decision-maker if necessary. Discussed CODE status at length including difference between FULL code, DNR-CCA and DNR-CC status. Following discussions about the differences in these status, requested Full Code status. Charges/Coding Visit Charges Inpatient E&M: 98418 Subs Hosp L2
[2024-08-15] MEDS: Lactobacillis Acidophilus 1 CAP PO (07:57)
[2024-08-15] MEDS: Folic Acid 1 MG Tablet 2 MG PO (07:57)
[2024-08-15] MEDS: Tamsulosin HCl 0.4 MG Capsule PO ×2 (07:57→21:19)
[2024-08-15] MEDS: Aspirin E.C. 81 MG Tablet PO (08:03)
[2024-08-15 08:10] LABS: Hemoglobin A1c 6.2 % (<=5.6)
[2024-08-15 11:55] LABS: Bedside Glucose 149 mg/dL (74-106)
[2024-08-15] MEDS: Ceftriaxone 1 GM/50 ML BAG IV (12:03)
--- NOTE | 2024-08-15 12:21 | PCM.CONS.U ---
Assessment & Plan Assessment/Plan (1) Hematuria: PLAN: Continue with bladder irrigation stop all blood thinners I anticipate this bleeding should stop on its own probably will be able to go home with a catheter in the day or 2. Will see him tomorrow morning (2) Acute urinary retention: HPI Consult Data Date of Consult: 08/15/24 HPI Narrative Reason for Consultation: Gross hematuria HPI Narrative: KUNAL BOOTH, is a 63 M who presents to the hospital with gross hematuria he states that this happened after doing self-catheterization. He has a history of an atonic nonfunctioning bladder which is managed with a self-catheterization has been doing this quite well he is on aspirin and Plavix we need to stop both aspirin and Plavix because of the bleeding. Continue with CBI the urine is clearing up I think this is going to clear up in his own with irrigation and eventually he will be able to go home with the Sanchez catheter I do not anticipate having to take him to surgery. I recently did a cystoscopy in the office that was clear except for the very large bladder stretched out bladder and minimal enlarged prostate PFSH Medical History Urinary retention Diabetes Psoriatic arthritis Coronary artery disease Wears partial dentures Wears glasses Alcohol use History of steroid therapy Dietary restriction Heartburn Non-smoker COVID-19 Diabetes Arthritis Medical History no medical history Home Medications ?Medication ?Instructions ?Recorded ?Last Taken ?Type folic acid 1 mg tablet 2 mg PO DAILY 07/04/22 Unknown History Lactobacillus acidophilus 10 100 mmu cells PO DAILY 03/25/23 Unknown History billion cell capsule (Probiotic) cholecalciferol (vitamin D3) 50 50 mcg PO DAILY 03/25/23 Unknown History mcg (2,000 unit) capsule (D3-2000) elderberry fruit 200 mg capsule 200 mg PO DAILY 03/25/23 Unknown History omega 0-iuj-axm-fish oil 1,200 mg 1 cap PO DAILY 03/25/23 Unknown History (144 mg-216 mg) capsule (Fish Oil) vitamin B complex (Complex B-100 1 tab PO DAILY 03/25/23 Unknown History tablet,extended release) aspirin 81 mg tablet,delayed 81 mg PO DAILY 08/04/23 08/08/23 History release (Adult Low Dose Aspirin) atorvastatin 40 mg tablet 40 mg PO QHS #90 tabs 08/14/23 Unknown Rx clopidogrel 75 mg tablet (Plavix) 75 mg PO DAILY #90 tabs 08/14/23 Unknown Rx nitroglycerin 0.4 mg sublingual 0.4 mg sublingual Q5-15M PRN chest 11/13/23 Unknown Rx tablet (Nitrostat) pain #25 tabs metformin 500 mg tablet,extended 500 mg PO DAILY #90 tabs 02/23/24 Unknown Rx release 24 hr magnesium 200 mg tablet 200 mg PO QDAY 05/17/24 Unknown History metoprolol tartrate 25 mg tablet 25 mg PO BID #180 tabs 08/11/24 Unknown Rx methotrexate sodium 2.5 mg tablet 17.5 mg PO QWEEK 08/14/24 Unknown History prednisone 10 mg tablet 10 mg PO DAILY PRN ARTHRITIS FLARE 08/14/24 Unknown History UP tamsulosin 0.4 mg capsule 0.4 mg PO QHS 08/14/24 Unknown History Allergy/AdvReac Type Severity Reaction Status Date / Time amoxicillin Allergy unknown Verified 08/14/24 10:23 erythromycin base Allergy unknown Verified 08/14/24 10:23 latanoprost (From Xalatan) Allergy unknown Verified 08/14/24 10:23 Family History Mother Psoriasis Diabetes Father Heart disease Hypertension CAD (coronary artery disease) Myocardial infarction Sister CAD (coronary artery disease) Heart disease Hypertension Myocardial infarction Brother CAD (coronary artery disease) Heart disease Hypertension Myocardial infarction Family History no significant family his Surgical History Hx of cardiac catheterization (~08/09/23) Stented coronary artery (~08/09/23) H/O tooth extraction Hx of eye surgery Surgical History no surgical history Social History household members: spouse Smoking Status: Never smoker alcohol intake: current alcohol intake frequency: holidays/special occasions only substance use type: does not use Physical Exam Const alert and oriented x3 General Appearance: cooperative HEENT normocephalic and head/scalp atraumatic Eyes PERRL and EOMs intact bilaterally Neck supple, no JVD and no carotid bruits Resp normal respiratory effort, normal air movement and clear to auscultation bilaterally Cardio regular rate and no murmurs GI normal to inspection, nondistended, normoactive bowel sounds and soft to palpation Extremity normal capillary refill General Extremity: no tenderness to palpation of joints or extremities; Negative for edema Skin no rashes or lesions noted and no wounds General Skin Exam: no breakdown Neuro CN's II-XII intact bilaterally Psych affect normal Appearance: appropriate Lab / Micro Data 08/15/24 03:55 08/15/24 03:55 Labs: Laboratory Results - last 24 hr 08/14/24 11:45: Sodium 138, Potassium 4.2, Chloride 106, Carbon Dioxide 20.5 L, Anion Gap 11, BUN 28 H, Creatinine 1.00, Estim Creat Clear Calc 79.63, Est GFR (MDRD) Non-Af 86, BUN/Creatinine Ratio 27.7 H, Glucose 198 H, Calcium 8.3 08/14/24 16:47: Hgb 10.9 L, Hct 33.2 L 08/14/24 17:04: POC Glucose 125 H 08/14/24 22:06: POC Glucose 195 H 08/14/24 22:23: Hgb 9.8 L, Hct 28.5 L 08/15/24 03:55: WBC 9.5, RBC 3.02 L, Hgb 9.6 L, Hct 28.5 L, MCV 94.4 H, MCH 31.8, MCHC 33.7, RDW Std Deviation 45.8 H, RDW Coeff of Renzo 13.3, Plt Count 126 L, MPV 10.6, Immature Gran % (Auto) 0.500, Neut % (Auto) 72.4 H, Lymph % (Auto) 11.9 L, Hendricks % (Auto) 11.3 H, Eos % (Auto) 3.5, Baso % (Auto) 0.4, Absolute Neuts (auto) 6.9, Absolute Lymphs (auto) 1.13, Nucleated RBC % 0, Sodium 139, Potassium 4.1, Chloride 109 H, Carbon Dioxide 22.6, Anion Gap 8, BUN 14, Creatinine 0.82, Estim Creat Clear Calc 97.35, Est GFR (MDRD) Non-Af 100, BUN/Creatinine Ratio 17.5, Glucose 154 H, Hemoglobin A1c 6.2 H, Calcium 8.4, Total Bilirubin 0.41, AST 20, ALT 23, Alkaline Phosphatase 65, Total Protein 5.5 L, Albumin 3.3 L, Globulin 2.2, Albumin/Globulin Ratio 1.5 08/15/24 06:47: POC Glucose 143 H 08/15/24 11:35: POC Glucose 149 H
[2024-08-15] MEDS: Insulin Lispro 100 UNIT/ML INSULN.PEN SC ×2 (16:31→22:29)
[2024-08-15 16:58] LABS: Bedside Glucose 151 mg/dL (74-106)
[2024-08-15] MEDS: Metoprolol Tartrate 25 MG Tablet PO (21:19)
[2024-08-15] MEDS: Atorvastatin Calcium 40 MG Tablet PO (21:19)
[2024-08-15 22:50] LABS: Bedside Glucose 178 mg/dL (74-106)
[2024-08-16] VITALS (9 sets, daily range): BP systolic 103–123; BP diastolic 62–71; PULSE 64–92; RESP 16–18; TEMP 36.5–37; O2SAT 93–99; BMI 29.1
[2024-08-16 06:33] LABS: Bedside Glucose 134 mg/dL (74-106)
[2024-08-16 07:51] LABS: Absolute Lymphocyte Count 1.48 X10^3/uL (0.83-4.51); Absolute Neutrophil Count 4.7 X10^3/uL (2.0-7.7); Basophil# 0.04 X10^3/uL; Basophil% 0.5 % (0-1); Eosinophil# 0.22 X10^3/uL; Hematocrit 27.5 % (40-54); Hemoglobin 9.4 g/dL (13.0-16.5); Lymphocyte # 1.48 X10^3/ul (0.83-4.51); Mean Corp Hgb Conc 34.2 g/dL (32-36); Mean Corpuscular Hgb 32.2 pg (27.0-32.0); Mean Corpuscular Volume 94.2 fL (80-94); Mean Platelet Vol. 11.2 fl (6.2-12.0); Monocyte% 12.1 % (0-10); NRBC Flagged by Analyzer 0 % (0-5); Neutrophil # 4.73 X10^3/uL (2.7-7.7); Neutrophil % 63.9 % (47-70); Platelet Count 125 K/mm3 (150-450); RBC Distribution Width CV 13.4 % (11.6-14.6); RBC Distribution Width SD 45.9 fl (35.1-43.9); Red Blood Count 2.92 M/mm3 (4.6-6.2); White Blood Count 7.4 K/mm3 (4.4-11.0)
[2024-08-16 08:37] LABS: Anion Gap 10 (5-15); BUN 11 mg/dL (4-19); BUN/Creat Ratio 11.5 RATIO (10-20); Calcium,Total 8.5 mg/dL (7.6-11.0); Carbon Dioxide 21.8 mmol/L (21.0-32.0); Chloride 109 mmol/L (98-108); Creatinine, Serum 0.91 mg/dL (0.70-1.20); EST Glomerular Filtration Rate 95 (>60); Glucose 134 mg/dL (70-99); Potassium 3.7 mmol/L (3.3-5.1); Sodium Level 141 mmol/L (133-145)
[2024-08-16] MEDS: Folic Acid 1 MG Tablet 2 MG PO (09:53)
[2024-08-16] MEDS: Metoprolol Tartrate 25 MG Tablet PO ×2 (09:53→21:29)
[2024-08-16] MEDS: Lactobacillis Acidophilus 1 CAP PO (09:53)
[2024-08-16] MEDS: Tamsulosin HCl 0.4 MG Capsule PO ×2 (09:55→21:29)
[2024-08-16] MEDS: Ceftriaxone 1 GM/50 ML BAG IV (10:37)
--- NOTE | 2024-08-16 11:17 | PCM.PN.HOSP ---
Reason for Visit Reason for Visit: Diagnoses Anemia, unspecified (08/14/24) Hematuria, unspecified (08/14/24) Other retention of urine (08/14/24) Objective Data Objective Data Vital Signs: Vital Signs Temp Pulse Resp BP Pulse Ox O2 Del Method 97.7 F L 80 18 103/71 94 Room Air 08/16/24 09:44 08/16/24 09:53 08/16/24 09:44 08/16/24 09:44 08/16/24 09:44 08/16/24 09:44 Oxygen Delivery Method Room Air Weight: 181 lb 3.52 oz Body Mass Index (BMI) 29.1 Intake & Output: Intake and Output for Last 24 Hours 08/14/24 08/15/24 08/16/24 23:59 23:59 23:59 Intake Total 5090 / 5090 290 / 290 Output Total 825 / 825 16991 / 81191 2900 / 2900 Balance -825 / -825 -8210 / -8210 -2610 / -2610 Lab / Micro Data 08/16/24 06:44 08/16/24 06:44 Labs: Laboratory Results - last 24 hr 08/15/24 11:35: POC Glucose 149 H 08/15/24 16:26: POC Glucose 151 H 08/15/24 22:27: POC Glucose 178 H 08/16/24 06:13: POC Glucose 134 H 08/16/24 06:44: WBC 7.4, RBC 2.92 L, Hgb 9.4 L, Hct 27.5 L, MCV 94.2 H, MCH 32.2 H, MCHC 34.2, RDW Std Deviation 45.9 H, RDW Coeff of Renzo 13.4, Plt Count 125 L, MPV 11.2, Immature Gran % (Auto) 0.500, Neut % (Auto) 63.9, Lymph % (Auto) 20.0, Kinney % (Auto) 12.1 H, Eos % (Auto) 3.0, Baso % (Auto) 0.5, Absolute Neuts (auto) 4.7, Absolute Lymphs (auto) 1.48, Nucleated RBC % 0, Sodium 141, Potassium 3.7, Chloride 109 H, Carbon Dioxide 21.8, Anion Gap 10, BUN 11, Creatinine 0.91, Estim Creat Clear Calc 85.80, Est GFR (MDRD) Non-Af 95, BUN/Creatinine Ratio 11.5, Glucose 134 H, Calcium 8.5 Micro: Microbiology 08/14/24 11:38 Urine Catheter - Sanchez Urine Culture - Preliminary Staphylococcus epidermidis Coag Negative Staph Physical Exam Narrative Seen and examined. Urine in the triple-lumen catheter is clear. Discussed with the urologist. Stop bladder irrigation Patient started bleeding per urethra on the Friday at work. He felt urgency and obstruction and has to strain for the urine General: Alert, Oriented x3, Cooperative HEENT: Atraumatic, PERRLA, EOMI, Normocephalic Oral: No Gingival or Mucosal Lesions/ Ulcerations Neck: Supple, No JVD, Negative Carotid Bruits Chest wall/Lungs: Air entry diminished in bilateral lung bases. No crepitation/rhonchi Cardiovascular: Regular rate, Regular Rhythm, Normal S1, Normal S2, No M/G/R Abdomen: Bowel Sounds Present, Soft, Non Tender, Non-Distended : No dysuria. No renal angle tenderness. No suprapubic tenderness. Extremities: No edema, Capillary Refill Less than 3 Seconds Skin: No rashes, No breakdown Musculoskeletal: No Tenderness to Palpation of Joints or Extremities Neurological: Cranial nerves II-XII grossly intact, DTR 2+/4. No acute focal neurological deficit. Psych/Mental Status: Normal Affect, Appropriate. Assessment & Plan Assessment/Plan (1) Acute urinary retention: (2) Hematuria: (3) Anemia: PLAN: Plan The patient is a 63 y/o M came to the ED with hematuria with blood clots, difficulty urination, urine retention on Plavix. Prior to that patient has seen Dr. Chapman on the afternoon before yesterday. Patient had Sanchez catheterization on 07/27 and then cystoscopy/stent: Sanchez catheter was removed. After the patient was self catheterizing until it was blocked yesterday. He also felt lightheadedness with syncopal event which was noted to be short with no trauma prompting eventual ED evaluation today given not improving. #1. Acute urinary retention with no neurogenic bladder secondary to significant hematuria with acute blood loss anemia associated with syncopal event: Admission CBC with hemoglobin 10.4,. Most recent ranges between 13 to 14 g. Today 9.6. On continuous bladder irrigation. Monitor CBC. Urobag and urine tube blood mixed with urine 08/16: Urine is clear and that triple-lumen 2. Discussed with Dr. Rodríguez. Stop the continuous bladder irrigation. Hemoglobin dropped to 9.4 from 10.9. If no further rebleed plan for discharge tomorrow. #2. CAD: Status post most recent cardiac catheterization 07/2023 with severe distal left anterior descending artery stenosis, moderate proximal left anterior descending artery stenosis, severe disease noted of the first diagonal vessel and subtotally occluded first obtuse marginal vessel with retrograde filling with successful PCI to the LAD, on baby aspirin and Plavix on hold. 08/16: Hold both baby aspirin and Plavix #3. Diabetes mellitus type II: Hold oral home regimen, continue home insulin regimen, ADA diet, accu checks w/ ISS. 08/15: Close reasonably controlled 08/16: Glucose control between 135-150 #4. Hypertension: Continue home regimen including metoprolol with hold parameters as needed, PRN hydralazine. #5. Hyperlipidemia: Will continue patient on statin therapy. #6. Rheumatoid arthritis/psoriatic arthritis: Per record patient on outpatient injections as well as methotrexate and prednisone as needed, will separately hold immunosuppressant therapy, continue folic acid supplementation. #7. Obesity: Weight loss and lifestyle changes encouraged. #8. DVT prophylaxis: SCDs. #9. CODE status: Patient does not have healthcare power of traffic law attorney or living will in place but notes his was present would be his medical decision-maker if necessary. Discussed CODE status at length including difference between FULL code, DNR-CCA and DNR-CC status. Following discussions about the differences in these status, requested Full Code status. Charges/Coding Visit Charges Inpatient E&M: 54766 Subs Hosp L2
[2024-08-16 12:32] LABS: Bedside Glucose 138 mg/dL (74-106)
--- NOTE | 2024-08-16 15:56 | CASEMGMT ---
RN CM into pt room, pt sitting up in bed in no distress with family at bedside, pt agreeable to discussion. Pt states he has had a catheter at home and feels comfortable with caring for it at home. Pt denies any homegoing needs.
[2024-08-16 17:22] LABS: Bedside Glucose 149 mg/dL (74-106)
[2024-08-16] MEDS: Atorvastatin Calcium 40 MG Tablet PO (21:29)
[2024-08-16 21:55] LABS: Bedside Glucose 148 mg/dL (74-106)
[2024-08-17] VITALS (7 sets, daily range): BP systolic 108–124; BP diastolic 63–68; PULSE 74–86; RESP 16–18; TEMP 36.4–36.9; O2SAT 95–97; BMI 29.2
[2024-08-17 04:51] LABS: Absolute Lymphocyte Count 1.67 X10^3/uL (0.83-4.51); Absolute Neutrophil Count 3.4 X10^3/uL (2.0-7.7); Basophil# 0.04 X10^3/uL; Basophil% 0.7 % (0-1); Eosinophil# 0.31 X10^3/uL; Eosinophils% 5.1 % (0-5); Hematocrit 27.1 % (40-54); Hemoglobin 9.1 g/dL (13.0-16.5); Lymphocyte # 1.67 X10^3/ul (0.83-4.51); Lymphocyte % 27.4 % (19-41); Mean Corp Hgb Conc 33.6 g/dL (32-36); Mean Corpuscular Hgb 31.6 pg (27.0-32.0); Mean Corpuscular Volume 94.1 fL (80-94); Mean Platelet Vol. 11.2 fl (6.2-12.0); Monocyte# 0.68 X10^3/uL; Monocyte% 11.2 % (0-10); NRBC Flagged by Analyzer 0 % (0-5); Neutrophil # 3.37 X10^3/uL (2.7-7.7); Neutrophil % 55.3 % (47-70); Platelet Count 144 K/mm3 (150-450); RBC Distribution Width CV 13.4 % (11.6-14.6); Red Blood Count 2.88 M/mm3 (4.6-6.2); White Blood Count 6.1 K/mm3 (4.4-11.0)
[2024-08-17 05:17] LABS: Anion Gap 9 (5-15); BUN 12 mg/dL (4-19); BUN/Creat Ratio 12.9 RATIO (10-20); Calcium,Total 8.7 mg/dL (7.6-11.0); Carbon Dioxide 23.9 mmol/L (21.0-32.0); Chloride 109 mmol/L (98-108); Creatinine, Serum 0.89 mg/dL (0.70-1.20); EST Glomerular Filtration Rate 97 (>60); Estimated Creatinine Clearance 87.73 ml/min (50-250); Glucose 125 mg/dL (70-99); Potassium 3.8 mmol/L (3.3-5.1); Sodium Level 141 mmol/L (133-145)
[2024-08-17 06:38] LABS: Bedside Glucose 119 mg/dL (74-106)
--- NOTE | 2024-08-17 09:25 | DCINST_ITS ---
Discharge Instructions DC O2, CPAP, BIPAP needs Home O2 Discharge instructions: No Follow Up Care Test Results: Test results from this visit will be discussed in further detail at your follow- up appointment, if applicable. Discharge Plan Admission Admit Date/Time: 08/14/24 14:46 Attending Provider: Aneesh Rodrigues Primary Care Provider: Romy Woods Consulting Providers: Billy Chapman; Minna Heck Instructions Additional Instructions / Restrictions: Patient is being discharged with triple-lumen Sanchez catheter. Tie Urobag thigh. Discharge Orders/Prescriptions Prescriptions: New sennosides-docusate sodium [Stimulant Laxative Plus] 8.6-50 mg Tablet 2 tab PO BID PRN PRN (Reason: Constipation) Qty: 0 0RF Rx Instructions: Letg-pzx-mhoqvjw. cephalexin 500 mg capsule 500 mg PO TID 3 Days Qty: 9 0RF ferrous sulfate 325 mg (65 mg iron) tablet 325 mg PO QODAY Qty: 30 2RF ascorbic acid (vitamin C) 500 mg tablet 500 mg PO BID Qty: 60 2RF Continued folic acid 1 mg tablet 2 mg PO DAILY atorvastatin 40 mg tablet 40 mg PO QHS Qty: 90 3RF nitroglycerin [Nitrostat] 0.4 mg tablet, sublingual 0.4 mg sublingual Q5-15M PRN (Reason: chest pain) Qty: 25 3RF Rx Instructions: do not exceed 3 doses per episode magnesium 200 mg tablet 200 mg PO QDAY omega 4-vpu-him-fish oil [Fish Oil] 1,200 (144-216) mg capsule 1 cap PO DAILY Complex B-100 Tablet Extended Release 1 tab PO DAILY cholecalciferol (vitamin D3) [D3-2000] 50 mcg (2,000 unit) capsule 50 mcg PO DAILY Probiotic 10 billion cell capsule 100 mmu cells PO DAILY elderberry fruit 200 mg capsule 200 mg PO DAILY prednisone 10 mg tablet 10 mg PO DAILY PRN (Reason: ARTHRITIS FLARE UP) Patient Comments: HAS NOT TAKEN FOR APPROX 2 WEEKS methotrexate sodium 2.5 mg tablet 17.5 mg PO QWEEK Patient Comments: PT TAKES ON FRIDAY IN THE EVENING tamsulosin 0.4 mg capsule 0.4 mg PO QHS metformin 500 mg tablet extended release 24 hr 500 mg PO DAILY Qty: 90 3RF metoprolol tartrate 25 mg tablet 25 mg PO BID Qty: 180 3RF Held aspirin [Adult Low Dose Aspirin] 81 mg tablet,delayed release (DR/EC) 81 mg PO DAILY Hold Instructions: Hold for 4 days. clopidogrel [Plavix] 75 mg tablet 75 mg PO DAILY Qty: 90 3RF Hold Instructions: Hold for 7 days. Rx Instructions: Take 4 pills on the first day, then take it once a day Referrals / Follow Up: Billy Chapman MD [Med Staff - Active Staff] - Within 1 Week (Follow-up next week.) Romy Woods MD [Primary Care Provider] - Disposition Disposition (needs filled in before D/C Order can be placed): Home, Self Care
[2024-08-17] MEDS: Folic Acid 1 MG Tablet 2 MG PO (09:38)
[2024-08-17] MEDS: Lactobacillis Acidophilus 1 CAP PO (09:39)
[2024-08-17] MEDS: 0.9% Saline Lock 10 ML Syringe IV (09:39)
[2024-08-17] MEDS: Ceftriaxone 1 GM/50 ML BAG IV (09:39)
[2024-08-17] MEDS: Tamsulosin HCl 0.4 MG Capsule PO (09:39)
--- NOTE | 2024-08-17 11:36 | PCM.DC.SUM ---
Providers Date of Admission: 08/14/24 Date of Discharge: 08/17/24 Primary Care Physician: Dr. Romy Woods MD Consultations 08/14/24 16:32 Consult: Urology Routine Consulting Provider: Billy Chapman Reason for Consult: Urinary retention acutely, hematuria, ABLA EMERGENT Consult: No MD Notified: Yes Date Notified: 08/14/24 Time Notified: 14:51 Method of Notification: Verbal Reason For Visit: URINARY RETENTION, HEMATURIA, ABLA Diagnosis Discharge Diagnosis (1) Acute urinary retention: Status: Acute Code(s): R33.8 - Other retention of urine (2) Hematuria: Status: Acute Code(s): R31.9 - Hematuria, unspecified (3) Anemia: Status: Acute Code(s): D64.9 - Anemia, unspecified Plan The patient is a 63 y/o M came to the ED with hematuria with blood clots, difficulty urination, urine retention on Plavix. Prior to that patient has seen Dr. Chapman on the afternoon before yesterday. Patient had Sanchez catheterization on 07/27 and then cystoscopy/stent: Sanchez catheter was removed. After the patient was self catheterizing until it was blocked yesterday. He also felt lightheadedness with syncopal event which was noted to be short with no trauma prompting eventual ED evaluation today given not improving. #1. Acute urinary retention with no neurogenic bladder secondary to significant hematuria with acute blood loss anemia associated with syncopal event: Admission CBC with hemoglobin 10.4,. Most recent ranges between 13 to 14 g. Today 9.6. On continuous bladder irrigation. Monitor CBC. Urobag and urine tube blood mixed with urine 08/16: Urine is clear and that triple-lumen 2. Discussed with Dr. Rodríguez. Stop the continuous bladder irrigation. Hemoglobin dropped to 9.4 from 10.9. If no further rebleed plan for discharge tomorrow. 08/17: Patient was monitored 24 hours after discontinuation of irrigation. Urine is clear. No blood clot. Patient discharged with triple-lumen Sanchez catheter after discussion with Dr. Chapman. Advised follow-up next week with Dr. Chapman. Urine cultures reported Staph epidermidis 11,000?25,000 and another Staph epidermidis less than 1000 colonies therefore not in pathology range. UTI ruled out. Because of risk of urinary retention Sanchez catheterization, patient empirically was treated with IV ceftriaxone and sent for 3 more days of Keflex. Patient also given prescription for ferrous sulfate and ascorbic acid. #2. CAD: Status post most recent cardiac catheterization 07/2023 with severe distal left anterior descending artery stenosis, moderate proximal left anterior descending artery stenosis, severe disease noted of the first diagonal vessel and subtotally occluded first obtuse marginal vessel with retrograde filling with successful PCI to the LAD, on baby aspirin and Plavix on hold. 08/16: Hold both baby aspirin and Plavix 08/17: Hold baby aspirin for 5 days and Plavix for 1 week before resumption. #3. Diabetes mellitus type II: Hold oral home regimen, continue home insulin regimen, ADA diet, accu checks w/ ISS. 08/15: Close reasonably controlled 08/16: Glucose control between 135-150 #4. Hypertension: Continue home regimen including metoprolol with hold parameters as needed, PRN hydralazine. #5. Hyperlipidemia: Will continue patient on statin therapy. #6. Rheumatoid arthritis/psoriatic arthritis: Per record patient on outpatient injections as well as methotrexate and prednisone as needed, will separately hold immunosuppressant therapy, continue folic acid supplementation. #7. Obesity: Weight loss and lifestyle changes encouraged. #8. DVT prophylaxis: SCDs. #9. CODE status: Patient does not have healthcare power of assistant attorney general or living will in place but notes his was present would be his medical decision-maker if necessary. Discussed CODE status at length including difference between FULL code, DNR-CCA and DNR-CC status. Following discussions about the differences in these status, requested Full Code status. Discharge medication reconciliation done. Discharge follow-up instructions completed. Discharge process discussed with the patient and all questions were answered to patient's satisfaction. Follow with PCP in 1 to 2 weeks Total time spent, exact 35 minutes on discharge meds reconciliation, examination, coordination of care with nurses and ancillary staff, review of imaging and blood test and discussion with the patient on follow-up instructions. Medications at Discharge Home Medications folic acid 1 mg tablet 2 mg PO DAILY 07/04/22 Lactobacillus acidophilus 10 billion cell capsule (Probiotic) 100 mmu cells PO DAILY 03/25/23 cholecalciferol (vitamin D3) 50 mcg (2,000 unit) capsule (D3-2000) 50 mcg PO DAILY 03/25/23 elderberry fruit 200 mg capsule 200 mg PO DAILY 03/25/23 omega 5-jqk-ndi-fish oil 1,200 mg (144 mg-216 mg) capsule (Fish Oil) 1 cap PO DAILY 03/25/23 vitamin B complex (Complex B-100 tablet,extended release) 1 tab PO DAILY 03/25/23 aspirin 81 mg tablet,delayed release (Adult Low Dose Aspirin) 81 mg PO DAILY 08/04/23 Held on 08/17/24. Instructions: Hold for 4 days. atorvastatin 40 mg tablet 40 mg PO QHS #90 tabs 08/14/23 clopidogrel 75 mg tablet (Plavix) 75 mg PO DAILY #90 tabs 08/14/23 Held on 08/17/24. Instructions: Hold for 7 days. nitroglycerin 0.4 mg sublingual tablet (Nitrostat) 0.4 mg sublingual Q5-15M PRN chest pain #25 tabs 11/13/23 metformin 500 mg tablet,extended release 24 hr 500 mg PO DAILY #90 tabs 02/23/24 magnesium 200 mg tablet 200 mg PO QDAY 05/17/24 metoprolol tartrate 25 mg tablet 25 mg PO BID #180 tabs 08/11/24 methotrexate sodium 2.5 mg tablet 17.5 mg PO QWEEK 08/14/24 prednisone 10 mg tablet 10 mg PO DAILY PRN ARTHRITIS FLARE UP 08/14/24 tamsulosin 0.4 mg capsule 0.4 mg PO QHS 08/14/24 ascorbic acid (vitamin C) 500 mg tablet 500 mg PO BID #60 tabs 08/17/24 cephalexin 500 mg capsule 500 mg PO TID 3 days #9 caps 08/17/24 ferrous sulfate 325 mg (65 mg iron) tablet 325 mg PO QODAY #30 tabs 08/17/24 sennosides 8.6 mg-docusate sodium 50 mg tablet (Stimulant Laxative Plus) 2 tab PO BID PRN PRN Constipation #0 tabs 08/17/24 Physical Exam Narrative Seen and examined. Urine remains clear in the triple-lumen catheter after 24 hours stopping of bladder irrigation. Discussed with the urologist. Patient started bleeding per urethra on the Friday at work. He felt urgency and obstruction and has to strain for the urine Physical exam General: Alert, Oriented x3, Cooperative HEENT: Atraumatic, PERRLA, EOMI, Normocephalic Oral: No Gingival or Mucosal Lesions/ Ulcerations Neck: Supple, No JVD, Negative Carotid Bruits Chest wall/Lungs: Air entry diminished in bilateral lung bases. No crepitation/rhonchi Cardiovascular: Regular rate, Regular Rhythm, Normal S1, Normal S2, No M/G/R Abdomen: Bowel Sounds Present, Soft, Non Tender, Non-Distended : No dysuria. No renal angle tenderness. No suprapubic tenderness. Extremities: No edema, Capillary Refill Less than 3 Seconds Skin: No rashes, No breakdown Musculoskeletal: No Tenderness to Palpation of Joints or Extremities Neurological: Cranial nerves II-XII grossly intact, DTR 2+/4. No acute focal neurological deficit. Psych/Mental Status: Normal Affect, Appropriate. Weight / BMI Weight Weight: 182 lb 5.156 oz Body Mass Index (BMI) 29.2 ABG / Lab / Microbiology Data 08/17/24 03:56 08/17/24 03:56 Laboratory: Laboratory Results - last 24 hr 08/16/24 12:14: POC Glucose 138 H 08/16/24 16:45: POC Glucose 149 H 08/16/24 21:28: POC Glucose 148 H 08/17/24 03:56: WBC 6.1, RBC 2.88 L, Hgb 9.1 L, Hct 27.1 L, MCV 94.1 H, MCH 31.6, MCHC 33.6, RDW Std Deviation 46.0 H, RDW Coeff of Renzo 13.4, Plt Count 144 L, MPV 11.2, Immature Gran % (Auto) 0.300, Neut % (Auto) 55.3, Lymph % (Auto) 27.4, Kings % (Auto) 11.2 H, Eos % (Auto) 5.1 H, Baso % (Auto) 0.7, Absolute Neuts (auto) 3.4, Absolute Lymphs (auto) 1.67, Nucleated RBC % 0, Sodium 141, Potassium 3.8, Chloride 109 H, Carbon Dioxide 23.9, Anion Gap 9, BUN 12, Creatinine 0.89, Estim Creat Clear Calc 87.73, Est GFR (MDRD) Non-Af 97, BUN/Creatinine Ratio 12.9, Glucose 125 H, Calcium 8.7 08/17/24 06:19: POC Glucose 119 H Microbiology: Microbiology 08/14/24 11:38 Urine Catheter - Sanchez Urine Culture - Final Staphylococcus epidermidis Staphylococcus epidermidis#2 D/C Instructions DC O2, CPAP, BIPAP Needs Home O2 Discharge instructions: No Meaningful Use Info Meaningful Use Meaningful Use Diagnoses (Choose all that apply): None applicable Ischemic Stroke Statin Dosing Therapy Reference: STATIN DOSE THERAPY REFERENCE: * Patients > 75 years receive moderate or high dose statin therapy. * Patients 75 years or YOUNGER should receive HIGH intensity statin dose unless contraindicated. You will be required to document reason for non-treatment if statin daily dose does not meet guidelines. HIGH DOSE STATIN THERAPY DAILY Atorvastatin > than or = to 40 mg Rosuvastatin > than or = to 20 mg Amlodipine + Atorvastatin > than or = to 2.5/40 mg Ezetimibe + Simvastatin 10/80 mg Simvastatin 80mg Discharge Plan Admission Admit Date/Time: 08/14/24 14:46 Attending Provider: Aneesh Rodrigues Primary Care Provider: Romy Woods Consulting Providers: Billy Chapman; Minna Heck Instructions Additional Instructions / Restrictions: Patient is being discharged with triple-lumen Sanchez catheter. Tie Urobag thigh. Discharge Orders/Prescriptions Prescriptions: New sennosides-docusate sodium [Stimulant Laxative Plus] 8.6-50 mg Tablet 2 tab PO BID PRN PRN (Reason: Constipation) Qty: 0 0RF Rx Instructions: Gutj-btf-nublanl. cephalexin 500 mg capsule 500 mg PO TID 3 Days Qty: 9 0RF ferrous sulfate 325 mg (65 mg iron) tablet 325 mg PO QODAY Qty: 30 2RF ascorbic acid (vitamin C) 500 mg tablet 500 mg PO BID Qty: 60 2RF Continued folic acid 1 mg tablet 2 mg PO DAILY atorvastatin 40 mg tablet 40 mg PO QHS Qty: 90 3RF nitroglycerin [Nitrostat] 0.4 mg tablet, sublingual 0.4 mg sublingual Q5-15M PRN (Reason: chest pain) Qty: 25 3RF Rx Instructions: do not exceed 3 doses per episode magnesium 200 mg tablet 200 mg PO QDAY omega 4-das-bdm-fish oil [Fish Oil] 1,200 (144-216) mg capsule 1 cap PO DAILY Complex B-100 Tablet Extended Release 1 tab PO DAILY cholecalciferol (vitamin D3) [D3-2000] 50 mcg (2,000 unit) capsule 50 mcg PO DAILY Probiotic 10 billion cell capsule 100 mmu cells PO DAILY elderberry fruit 200 mg capsule 200 mg PO DAILY prednisone 10 mg tablet 10 mg PO DAILY PRN (Reason: ARTHRITIS FLARE UP) Patient Comments: HAS NOT TAKEN FOR APPROX 2 WEEKS methotrexate sodium 2.5 mg tablet 17.5 mg PO QWEEK Patient Comments: PT TAKES ON FRIDAY IN THE EVENING tamsulosin 0.4 mg capsule 0.4 mg PO QHS metformin 500 mg tablet extended release 24 hr 500 mg PO DAILY Qty: 90 3RF metoprolol tartrate 25 mg tablet 25 mg PO BID Qty: 180 3RF Held aspirin [Adult Low Dose Aspirin] 81 mg tablet,delayed release (DR/EC) 81 mg PO DAILY Hold Instructions: Hold for 4 days. clopidogrel [Plavix] 75 mg tablet 75 mg PO DAILY Qty: 90 3RF Hold Instructions: Hold for 7 days. Rx Instructions: Take 4 pills on the first day, then take it once a day Referrals / Follow Up: Billy Chapman MD [Med Staff - Active Staff] - Within 1 Week (Follow-up next week.) Romy Woods MD [Primary Care Provider] - Disposition Disposition (needs filled in before D/C Order can be placed): Home, Self Care Charges/Coding Visit Charges Inpatient E&M: 65711 Disch Hosp >30min
[2024-08-17 12:08] LABS: Bedside Glucose 151 mg/dL (74-106)
[2024-08-17] MEDS: Insulin Lispro 100 UNIT/ML INSULN.PEN SC (12:14)
--- NOTE | 2024-08-17 12:22 | PHA.DC.MC.R ---
Pharmacy [facility] Pharmacy Service has performed discharge medication reconciliation and counseling for this patient. The patient's discharge medication list was reviewed for discrepancies and discrepancies were resolved. The patient was counseled on the following discharge medications and changes in medications for homegoing were reviewed. The Reason for Use, instructions for use, and potential side effects were reviewed for all new medications. The patient's questions regarding all of their medications were answered. 1. Ascorbic acid 500 mg PO BID 2. Ferrous sulfate 325 mg every other day 3. Cephalexin 500 mg PO TID x 3 days 4. Senna/docusate 2 tablets PO BID PRN The patient was able to verbally demonstrate an understanding of their discharge medications. The patient was counselled on new medications by pharmacy tech customer service Ronnie. Medications at Discharge Home Medications folic acid 1 mg tablet 2 mg PO DAILY 07/04/22 Lactobacillus acidophilus 10 billion cell capsule (Probiotic) 100 mmu cells PO DAILY 03/25/23 cholecalciferol (vitamin D3) 50 mcg (2,000 unit) capsule (D3-2000) 50 mcg PO DAILY 03/25/23 elderberry fruit 200 mg capsule 200 mg PO DAILY 03/25/23 omega 8-ogn-rwo-fish oil 1,200 mg (144 mg-216 mg) capsule (Fish Oil) 1 cap PO DAILY 03/25/23 vitamin B complex (Complex B-100 tablet,extended release) 1 tab PO DAILY 03/25/23 aspirin 81 mg tablet,delayed release (Adult Low Dose Aspirin) 81 mg PO DAILY 08/04/23 Held on 08/17/24. Instructions: Hold for 4 days. atorvastatin 40 mg tablet 40 mg PO QHS #90 tabs 08/14/23 clopidogrel 75 mg tablet (Plavix) 75 mg PO DAILY #90 tabs 08/14/23 Held on 08/17/24. Instructions: Hold for 7 days. nitroglycerin 0.4 mg sublingual tablet (Nitrostat) 0.4 mg sublingual Q5-15M PRN chest pain #25 tabs 11/13/23 metformin 500 mg tablet,extended release 24 hr 500 mg PO DAILY #90 tabs 02/23/24 magnesium 200 mg tablet 200 mg PO QDAY 05/17/24 metoprolol tartrate 25 mg tablet 25 mg PO BID #180 tabs 08/11/24 methotrexate sodium 2.5 mg tablet 17.5 mg PO QWEEK 08/14/24 prednisone 10 mg tablet 10 mg PO DAILY PRN ARTHRITIS FLARE UP 08/14/24 tamsulosin 0.4 mg capsule 0.4 mg PO QHS 08/14/24 ascorbic acid (vitamin C) 500 mg tablet 500 mg PO BID #60 tabs 08/17/24 cephalexin 500 mg capsule 500 mg PO TID 3 days #9 caps 08/17/24 ferrous sulfate 325 mg (65 mg iron) tablet 325 mg PO QODAY #30 tabs 08/17/24 sennosides 8.6 mg-docusate sodium 50 mg tablet (Stimulant Laxative Plus) 2 tab PO BID PRN PRN Constipation #0 tabs 08/17/24
== END 2024-08-17 14:39 | disposition home or self-care (01) | DRG 696 ==
LOC: ED 10:48 → MS3 15:53
PROVIDERS: Anesthesiology; Physician Assistant; Admitting Provider Family Medicine; Emergency Provider Emergency Medicine; PCP Internal Medicine; Visit Provider Internal Medicine
DX: R31.0 Gross hematuria (principal); D62 Acute posthemorrhagic anemia; D68.32 Hemorrhagic disorder due to extrinsic circulating anticoagulants; E11.9 Type 2 diabetes mellitus without complications; L40.50 Arthropathic psoriasis, unspecified; I10 Essential (primary) hypertension; E66.9 Obesity, unspecified; E78.5 Hyperlipidemia, unspecified; I25.10 Atherosclerotic heart disease of native coronary artery without angina pectoris; N31.2 Flaccid neuropathic bladder, not elsewhere classified; T39.015A Adverse effect of aspirin, initial encounter; T45.525A Adverse effect of antithrombotic drugs, initial encounter; N32.89 Other specified disorders of bladder; N40.1 Benign prostatic hyperplasia with lower urinary tract symptoms; R33.8 Other retention of urine; M06.9 Rheumatoid arthritis, unspecified; Z68.29 Body mass index [BMI] 29.0-29.9, adult; Z95.5 Presence of coronary angioplasty implant and graft; Z79.02 Long term (current) use of antithrombotics/antiplatelets; Z79.82 Long term (current) use of aspirin; Z79.84 Long term (current) use of oral hypoglycemic drugs; Z79.899 Other long term (current) drug therapy; Z86.16 Personal history of COVID-19
CPT/HCPCS: 36415; 51702; 80048; 80053; 81001; 81002; 82962; 83036; 85014; 85018; 85025; 87077; 87086; 87088; 87186; 93005; 94668; 99285; A4216

== ENCOUNTER 2024-09-08 09:29 | Outpatient (CLI) | payer OTHER, SELFPAY ==
[2023-12-30 09:02] VITALS: BMI 30.4
[2024-09-08 12:22] LABS: Absolute Lymphocyte Count 1.18 X10^3/uL (0.83-4.51); Absolute Neutrophil Count 3.7 X10^3/uL (2.0-7.7); Basophil# 0.02 X10^3/uL; Basophil% 0.4 % (0-1); Eosinophil# 0.15 X10^3/uL; Eosinophils% 2.7 % (0-5); Hematocrit 36.8 % (40-54); Lymphocyte # 1.18 X10^3/ul (0.83-4.51); Mean Corp Hgb Conc 32.6 g/dL (32-36); Mean Corpuscular Volume 95.1 fL (80-94); Mean Platelet Vol. 11.1 fl (6.2-12.0); Monocyte# 0.51 X10^3/uL; Monocyte% 9.1 % (0-10); NRBC Flagged by Analyzer 0 % (0-5); Neutrophil # 3.74 X10^3/uL (2.7-7.7); Neutrophil % 66.6 % (47-70); Platelet Count 176 K/mm3 (150-450); RBC Distribution Width CV 13.8 % (11.6-14.6); RBC Distribution Width SD 47.7 fl (35.1-43.9); Red Blood Count 3.87 M/mm3 (4.6-6.2); White Blood Count 5.6 K/mm3 (4.4-11.0)
[2024-09-08 12:55] LABS: ALB/GLOB Ratio 1.4 RATIO (0.9-2.4); AST(SGOT) 18 U/L (<=37); Alanine Aminotransfer ALT/SGPT 22 U/L (<=46); Albumin, Serum 3.9 g/dL (3.4-4.8); Alkaline Phosphatase 85 U/L (40-129); Anion Gap 8 (5-15); BUN 18 mg/dL (4-19); Calcium,Total 9.1 mg/dL (7.6-11.0); Carbon Dioxide 21.9 mmol/L (21.0-32.0); Chloride 107 mmol/L (98-108); Creatinine, Serum 0.97 mg/dL (0.70-1.20); EST Glomerular Filtration Rate 89 (>60); Globulin 2.7 g/dL (2.2-4.2); Glucose 118 mg/dL (70-99); Iron 33 ug/dL (65-175); Iron Binding Capacity,Total 308 ug/dL (250-450); Iron Binding Capacity,Unsat 275 ug/dL (228-428); Potassium 4.1 mmol/L (3.3-5.1); Protein, Total 6.6 g/dL (5.9-8.4); Sodium Level 137 mmol/L (133-145); Total Bilirubin 0.59 mg/dL (0.00-1.30)
== END 2024-09-08 23:59 | disposition home or self-care (01) ==
LOC: MTLAB 09:30
PROVIDERS: PCP Internal Medicine; Referring Provider Internal Medicine Rheumatology; Visit Provider Internal Medicine Rheumatology
DX: L40.59 Other psoriatic arthropathy (principal); Z79.899 Other long term (current) drug therapy; R06.09 Other forms of dyspnea; R07.89 Other chest pain; D64.9 Anemia, unspecified
CPT/HCPCS: 36415; 80053; 83540; 83550; 85025

== ENCOUNTER → 2024-09-16 | Outpatient (CLI) | payer OTHER, SELFPAY ==
[2023-12-30 09:02] VITALS: BMI 30.4
[2024-09-16 13:03] LABS: PSA,Total - Annual Screen 3.33 ng/mL (0.02-4.00)
== END | disposition home or self-care (01) ==
LOC: LAB 10:36
PROVIDERS: PCP Internal Medicine; Referring Provider Urology; Visit Provider Urology
DX: N40.1 Benign prostatic hyperplasia with lower urinary tract symptoms (principal); Z12.5 Encounter for screening for malignant neoplasm of prostate
CPT/HCPCS: 36415; 84153; G0103

== ENCOUNTER → 2024-11-30 | Outpatient (CLI) | payer OTHER, SELFPAY ==
[2023-12-30 09:02] VITALS: BMI 30.4
[2024-11-30 11:00] LABS: Hematocrit 43.2 % (40-54); Hemoglobin 13.8 g/dL (13.0-16.5); Immature Granulocytes Count 0.010 X10^3/uL (0.0-0.0); Mean Corp Hgb Conc 31.9 g/dL (32-36); Mean Corpuscular Volume 90.0 fL (80-94); Mean Platelet Vol. 10.9 fl (6.2-12.0); NRBC Flagged by Analyzer 0 % (0-5); Platelet Count 188 K/mm3 (150-450); RBC Distribution Width CV 14.4 % (11.6-14.6); RBC Distribution Width SD 46.8 fl (35.1-43.9); Red Blood Count 4.80 M/mm3 (4.6-6.2); White Blood Count 7.0 K/mm3 (4.4-11.0)
[2024-11-30 11:49] LABS: AST(SGOT) 22 U/L (<=37); Alanine Aminotransfer ALT/SGPT 25 U/L (<=46); Albumin, Serum 3.9 g/dL (3.4-4.8); Alkaline Phosphatase 81 U/L (40-129); Anion Gap 11 (5-15); BUN 18 mg/dL (4-19); BUN/Creat Ratio 20.7 RATIO (10-20); Calcium,Total 9.3 mg/dL (7.6-11.0); Carbon Dioxide 22.4 mmol/L (21.0-32.0); Chloride 105 mmol/L (98-108); Cholesterol 99 mg/dL (<=200); Globulin 2.9 g/dL (2.2-4.2); Glucose 114 mg/dL (70-99); Low Density Lipoprotein Calc. 39 mg/dL; Magnesium 2.0 mg/dL (1.5-2.2); Potassium 4.1 mmol/L (3.3-5.1); Triglycerides 123 mg/dL; Very Low Density Lipoprotein 25 mg/dL (5-40); cholesterol:hdl ratio screen 2.77
[2024-11-30 18:01] LABS: AST(SGOT) 22 U/L (<=37); Alanine Aminotransfer ALT/SGPT 24 U/L (<=46); Albumin, Serum 4.0 g/dL (3.4-4.8); Alkaline Phosphatase 82 U/L (40-129); Bilirubin, Direct 0.27 mg/dL (0.00-0.30); Globulin 2.8 g/dL (2.2-4.2)
== END | disposition home or self-care (01) ==
LOC: LAB 10:28
PROVIDERS: Nurse Practitioner Family; PCP Internal Medicine; Referring Provider Internal Medicine Rheumatology; Visit Provider Internal Medicine Rheumatology
DX: L40.59 Other psoriatic arthropathy (principal); E11.65 Type 2 diabetes mellitus with hyperglycemia; I25.10 Atherosclerotic heart disease of native coronary artery without angina pectoris; E78.00 Pure hypercholesterolemia, unspecified; D64.9 Anemia, unspecified; R33.9 Retention of urine, unspecified; Z95.5 Presence of coronary angioplasty implant and graft; Z79.899 Other long term (current) drug therapy; Z13.220 Encounter for screening for lipoid disorders
CPT/HCPCS: 80053; 80061; 80076; 83036; 83735; 84443; 85025

== ENCOUNTER → 2025-03-08 | Outpatient (CLI) | payer OTHER, SELFPAY ==
[2023-12-30 09:02] VITALS: BMI 30.4
[2025-03-08 10:03] LABS: Hematocrit 43.2 % (40-54); Hemoglobin 13.9 g/dL (13.0-16.5); Immature Granulocytes Count 0.040 X10^3/uL (0.0-0.0); Mean Corp Hgb Conc 32.2 g/dL (32-36); Mean Corpuscular Volume 93.1 fL (80-94); Mean Platelet Vol. 10.9 fl (6.2-12.0); NRBC Flagged by Analyzer 0 % (0-5); Platelet Count 201 K/mm3 (150-450); RBC Distribution Width CV 14.0 % (11.6-14.6); RBC Distribution Width SD 46.8 fl (35.1-43.9); Red Blood Count 4.64 M/mm3 (4.6-6.2); White Blood Count 8.7 K/mm3 (4.4-11.0)
[2025-03-08 10:54] LABS: AST(SGOT) 35 U/L (<=37); Alanine Aminotransfer ALT/SGPT 54 U/L (<=46); Albumin, Serum 4.0 g/dL (3.4-4.8); Alkaline Phosphatase 93 U/L (40-129); Anion Gap 8 (5-15); BUN 17 mg/dL (4-19); BUN/Creat Ratio 19.9 RATIO (10-20); Calcium,Total 9.2 mg/dL (7.6-11.0); Carbon Dioxide 27.0 mmol/L (21.0-32.0); Chloride 106 mmol/L (98-108); Globulin 3.1 g/dL (2.2-4.2); Glucose 113 mg/dL (70-99); Potassium 4.5 mmol/L (3.3-5.1)
== END | disposition home or self-care (01) ==
LOC: LAB 08:56
PROVIDERS: PCP Internal Medicine; Referring Provider Internal Medicine Rheumatology; Visit Provider Internal Medicine Rheumatology
DX: L40.59 Other psoriatic arthropathy (principal); E11.9 Type 2 diabetes mellitus without complications; L40.8 Other psoriasis; M21.40 Flat foot [pes planus] (acquired), unspecified foot; E78.5 Hyperlipidemia, unspecified; H40.9 Unspecified glaucoma; I25.10 Atherosclerotic heart disease of native coronary artery without angina pectoris; N40.1 Benign prostatic hyperplasia with lower urinary tract symptoms; Z95.5 Presence of coronary angioplasty implant and graft; Z79.899 Other long term (current) drug therapy
CPT/HCPCS: 36415; 80053; 85025

== ENCOUNTER → 2025-04-12 | Outpatient (CLI) | payer OTHER, SELFPAY ==
[2023-12-30 09:02] VITALS: BMI 30.4
[2025-04-12 10:10] LABS: AST(SGOT) 18 U/L (<=37); Alanine Aminotransfer ALT/SGPT 24 U/L (<=46); Albumin, Serum 3.9 g/dL (3.4-4.8); Alkaline Phosphatase 86 U/L (40-129); Anion Gap 8 (5-15); BUN 20 mg/dL (4-19); BUN/Creat Ratio 20.5 RATIO (10-20); Calcium,Total 9.1 mg/dL (7.6-11.0); Carbon Dioxide 26.2 mmol/L (21.0-32.0); Chloride 105 mmol/L (98-108); Globulin 3.1 g/dL (2.2-4.2); Glucose 103 mg/dL (70-99); Potassium 4.1 mmol/L (3.3-5.1)
== END | disposition home or self-care (01) ==
LOC: LAB 08:58
PROVIDERS: PCP Internal Medicine; Referring Provider Internal Medicine Rheumatology; Visit Provider Internal Medicine Rheumatology
DX: L40.59 Other psoriatic arthropathy (principal); Z79.899 Other long term (current) drug therapy
CPT/HCPCS: 36415; 80053